=== PATIENT | male | born 1950 | race Two or more races ===

== ENCOUNTER 2019-01-05 17:08 | Inpatient (IN) | payer MEDICARE ==
[~2019-01-05] VITALS: Ht 185.4 cm; Wt 86.7 kg
[2019-01-05] MEDS ORDERED: LORA-254 PO ×3 (18:07)
[2019-01-05] MEDS ORDERED: QUET50TA5 PO (18:07)
[2019-01-05] MEDS ORDERED: QUET25TA5 PO ×2 (18:07)
[2019-01-05] MEDS ORDERED: ESCITALOPRAM OX10 MG PO (18:07)
[2019-01-05 19:24] VITALS: BP 129/76
[2019-01-05] MEDS ORDERED: METHYL SALICYLATE/MENTHOL TOPICAL OINTMENT 29GM TUBE. TP PRN (20:30)
[2019-01-05] MEDS ORDERED: ACETAMINOPHEN 325 MG TABLET PO PRN (20:30)
[2019-01-05] MEDS ORDERED: MAG HYDROX/AL HYDROX/SIMETH 30 ML ORAL.SUSP PO PRN (20:30)
[2019-01-05 20:57] LABS: BASO % 1 % (0-3); EOS # 0.3 x10^3/uL (0.0-0.7); EOS % 7 % (0-3); HEMATOCRIT 39.4 % (39.0-53.0); HEMOGLOBIN 13.2 g/dL (13.0-17.5); LYMPH # 1.4 x10^3/uL (1.0-4.8); LYMPH % 35 % (24-48); MEAN CORPUSCULAR HEMOGLOBIN 31 pg (25-35); MEAN CORPUSCULAR HGB CONC 34 g/dL (31-37); MEAN CORPUSCULAR VOLUME 94 fL (79-100); MONO # 0.5 x10^3/uL (0.0-1.1); MONO % 11 % (0-9); NEUT # 1.8 x10^3uL (1.8-7.7); NEUT % 46 % (31-73); PLATELET COUNT 205 x10^3/uL (140-400); RED BLOOD COUNT 4.21 x10^6/uL (4.30-5.70); RED CELL DISTRIBUTION WIDTH 14.1 % (11.5-14.5)
[2019-01-05] MEDS: CITALOPRAM 20 MG TABLET. PO SCH (21:00)
[2019-01-05] MEDS: QUEtiapine 50 MG TABLET. PO SCH (21:00)
[2019-01-05 21:09] LABS: ALBUMIN 3.6 g/dL (3.4-5.0); ALBUMIN/GLOBULIN RATIO 1.1 (1.0-1.7); CALCIUM 8.8 mg/dL (8.5-10.1); GFR 74.3; MAGNESIUM 2.1 mg/dL (1.8-2.4); POTASSIUM 3.9 mmol/L (3.5-5.1); TOTAL BILIRUBIN 0.3 mg/dL (0.2-1.0)
--- NOTE | 2019-01-05 22:36 | PDOC ---
Exam Note: Manoj Note: Please also refer to the separate dictated note~for this date of service dictated separately. Discussed the patient with Nursing staff reviewed the chart.~Reviewed interim history and current functioning. Reviewed vital signs,~ Labs/ Radiology~and current medications noted below. Continue current treatment with the changes noted in the dictated addendum note Assessment: Vital Signs: Vital Signs Date Time Temp Pulse Resp B/P (MAP) Pulse Ox O2 Delivery O2 Flow Rate FiO2 01/05/19 19:24 98.3 52 20 129/76 (93) 98 Labs: Laboratory Tests Test 01/05/19 20:40 White Blood Count 4.0 x10^3/uL (4.0-11.0) Red Blood Count 4.21 x10^6/uL (4.30-5.70) L Hemoglobin 13.2 g/dL (13.0-17.5) Hematocrit 39.4 % (39.0-53.0) Mean Corpuscular Volume 94 fL (79-100) Mean Corpuscular Hemoglobin 31 pg (25-35) Mean Corpuscular Hemoglobin Concent 34 g/dL (31-37) Red Cell Distribution Width 14.1 % (11.5-14.5) Platelet Count 205 x10^3/uL (140-400) Neutrophils (%) (Auto) 46 % (31-73) Lymphocytes (%) (Auto) 35 % (24-48) Monocytes (%) (Auto) 11 % (0-9) H Eosinophils (%) (Auto) 7 % (0-3) H Basophils (%) (Auto) 1 % (0-3) Neutrophils # (Auto) 1.8 x10^3uL (1.8-7.7) Lymphocytes # (Auto) 1.4 x10^3/uL (1.0-4.8) Monocytes # (Auto) 0.5 x10^3/uL (0.0-1.1) Eosinophils # (Auto) 0.3 x10^3/uL (0.0-0.7) Basophils # (Auto) 0.0 x10^3/uL (0.0-0.2) Sodium Level 144 mmol/L (136-145) Potassium Level 3.9 mmol/L (3.5-5.1) Chloride Level 108 mmol/L (98-107) H Carbon Dioxide Level 29 mmol/L (21-32) Anion Gap 7 (6-14) Blood Urea Nitrogen 19 mg/dL (8-26) Creatinine 1.0 mg/dL (0.7-1.3) Estimated GFR (Cockcroft-Gault) 74.3 BUN/Creatinine Ratio 19 (6-20) Glucose Level 109 mg/dL (70-99) H Calcium Level 8.8 mg/dL (8.5-10.1) Magnesium Level 2.1 mg/dL (1.8-2.4) Total Bilirubin 0.3 mg/dL (0.2-1.0) Aspartate Amino Transferase (AST) 16 U/L (15-37) Alanine Aminotransferase (ALT) 23 U/L (16-63) Alkaline Phosphatase 78 U/L (46-116) Total Protein 7.0 g/dL (6.4-8.2) Albumin 3.6 g/dL (3.4-5.0) Albumin/Globulin Ratio 1.1 (1.0-1.7) Current Medications: Meds: Current Medications Olanzapine (ZyPREXA ZYDIS) 2.5 mg PRN Q2HR PRN PO PSYCHOSIS/AGITATION; Start at 18:45 Lorazepam (Ativan) 2 mg DAILY PO ; Start 01/06/19 at 09:00 Lorazepam (Ativan) 2 mg DAILYWLUN PO ; Start 01/06/19 at 12:00 Lorazepam (Ativan) 2 mg DAILYWSUP PO ; Start 01/06/19 at 17:00 Citalopram Hydrobromide (CeleXA) 20 mg HS PO ; Start 01/05/19 at 21:00 Quetiapine Fumarate (SEROquel) 25 mg DAILY PO ; Start 01/06/19 at 09:00 Quetiapine Fumarate (SEROquel) 25 mg DAILYWLUN PO ; Start 01/06/19 at 12:00 Quetiapine Fumarate (SEROquel) 50 mg HS PO ; Start 01/05/19 at 21:00 Acetaminophen (Tylenol) 650 mg PRN Q6HRS PRN PO PAIN / TEMP; Start 01/05/19 at 20:30 Multi-Ingredient Ointment (Analgesic [place]) 1 manisha PRN QID PRN TP MUSCLE PAIN; Start 01/05/19 at 20:30 Al Hydroxide/Mg Hydroxide (Mylanta Plus Xs) 15 ml PRN AFTMEALHC PRN PO DYSPEPSIA; Start 01/05/19 at 20:30 Magnesium Hydroxide (Milk Of Magnesia) 2,400 mg PRN QHS PRN PO CONSTIPATION; Start 01/05/19 at 20:30 Active Scripts Active Reported Seroquel (Quetiapine Fumarate) 25 Mg Tablet 1 Tab PO DAILY Seroquel (Quetiapine Fumarate) 25 Mg Tablet 1 Tab PO DAILYWLUN Seroquel (Quetiapine Fumarate) 50 Mg Tablet 1 Tab PO QHS Escitalopram Oxalate 10 Mg Tablet 1 Tab PO HS Ativan (Lorazepam) 1 Mg Tablet 2 Mg PO DAILY Ativan (Lorazepam) 1 Mg Tablet 2 Mg PO DAILYWSUP Ativan (Lorazepam) 1 Mg Tablet 2 Mg PO DAILYWLUN I have reviewed the current psychotropics carefully including drug interactions. Risk benefit ratio favors no change other than as noted in my dictated progress note. KODI SLATER MD Jan 05, 2019 22:36
[2019-01-06 06:19] VITALS: BP 140/90
[2019-01-06] MEDS: QUEtiapine 25 MG TABLET. PO SCH ×2 (09:25→11:57)
[2019-01-06] MEDS: LORazepam 1 MG TABLET PO SCH ×3 (09:25→16:54)
[2019-01-06 13:54] LABS: THYROID STIM HORMONE (TSH) 2.855 uIU/mL (0.358-3.740)
[2019-01-06 17:09] VITALS: BP 159/85
[2019-01-06] MEDS: CHOLECALCIFEROL (VITAMIN D3) 50,000 UNIT CAPSULE PO SCH (17:55)
[2019-01-06] MEDS: CITALOPRAM 20 MG TABLET. PO SCH (20:00)
[2019-01-06] MEDS: QUEtiapine 50 MG TABLET. PO SCH (20:01)
[2019-01-06 20:10] LABS: THYROXINE 3.5 ug/dL (4.5-12.0)
--- NOTE | 2019-01-06 22:54 | PDOC ---
Exam Note: Manoj Note: Please also refer to the separate dictated note~for this date of service dictated separately.~Patient seen individually. Discussed the patient with Nursing staff reviewed the chart.~Reviewed interim history and current functioning. Reviewed vital signs,~Labs/ Radiology~and current medications noted below. Continue current treatment with the changes noted in the dictated addendum note Assessment: Vital Signs: Vital Signs Date Time Temp Pulse Resp B/P (MAP) Pulse Ox O2 Delivery O2 Flow Rate FiO2 01/06/19 17:09 97.0 60 16 159/85 (109) 98 I&O Intake and Output 01/06/19 07:01 Intake Total 120 ml Balance 120 ml Intake Oral 120 ml Current Medications: Meds: Current Medications Olanzapine (ZyPREXA ZYDIS) 2.5 mg PRN Q2HR PRN PO PSYCHOSIS/AGITATION Last administered on 01/06/19 18:45; Start 01/05/19 at 18:45 Lorazepam (Ativan) 2 mg DAILY PO Last administered on 01/06/19 09:25; Start 01/06/19 at 09:00 Lorazepam (Ativan) 2 mg DAILYWLUN PO Last administered on 01/06/19 11:57; Start 01/06/19 at 12:00 Lorazepam (Ativan) 2 mg DAILYWSUP PO Last administered on 01/06/19 16:54; Start 01/06/19 at 17:00 Citalopram Hydrobromide (CeleXA) 20 mg HS PO Last administered on 01/06/19 20: 00; Start 01/05/19 at 21:00 Quetiapine Fumarate (SEROquel) 25 mg DAILY PO Last administered on 01/06/19 09: 25; Start 01/06/19 at 09:00 Quetiapine Fumarate (SEROquel) 25 mg DAILYWLUN PO Last administered on 11:57; Start 01/06/19 at 12:00 Quetiapine Fumarate (SEROquel) 50 mg HS PO Last administered on 01/06/19 20:01 ; Start 01/05/19 at 21:00 Acetaminophen (Tylenol) 650 mg PRN Q6HRS PRN PO PAIN / TEMP; Start 01/05/19 at 20:30 Multi-Ingredient Ointment (Analgesic [place]) 1 manisha PRN QID PRN TP MUSCLE PAIN; Start 01/05/19 at 20:30 Al Hydroxide/Mg Hydroxide (Mylanta Plus Xs) 15 ml PRN AFTMEALHC PRN PO DYSPEPSIA; Start 01/05/19 at 20:30 Magnesium Hydroxide (Milk Of Magnesia) 2,400 mg PRN QHS PRN PO CONSTIPATION; Start 01/05/19 at 20:30 Vitamin D (Vitamin D3) 50,000 unit WEEKLY PO Last administered on 01/06/19at 17: 55; Start 01/06/19 at 17:00 Active Scripts Active Reported Seroquel (Quetiapine Fumarate) 25 Mg Tablet 1 Tab PO DAILY Seroquel (Quetiapine Fumarate) 25 Mg Tablet 1 Tab PO DAILYWLUN Seroquel (Quetiapine Fumarate) 50 Mg Tablet 1 Tab PO QHS Escitalopram Oxalate 10 Mg Tablet 1 Tab PO HS Ativan (Lorazepam) 1 Mg Tablet 2 Mg PO DAILY Ativan (Lorazepam) 1 Mg Tablet 2 Mg PO DAILYWSUP Ativan (Lorazepam) 1 Mg Tablet 2 Mg PO DAILYWLUN I have reviewed the current psychotropics carefully including drug interactions. Risk benefit ratio favors no change other than as noted in my dictated progress note. KODI SLATER MD Jan 06, 2019 22:54
[2019-01-06 23:09] LABS: HEMOGLOBIN A1C 5.5 % (4.8-5.6)
--- NOTE | 2019-01-06 23:27 | CONS ---
DATE OF CONSULTATION: 01/06/2019 REASON FOR CONSULTATION: Medical management. HISTORY OF PRESENT ILLNESS: The patient is a 68-year-old male patient, a resident at [facility], who was admitted there only recently, specifically on 12/31/2018 as his has stage 4 breast cancer and is unable to take care of him, apparently was admitted to this unit on account of increasing agitation, exit seeking, emotional, hallucinating, combative with staff, labile, disrobing, spitting on the staff, resistive to care, all this in a background of dementia with behavioral disorder. The patient really is very disorganized and very confused, does not give any useful information, emotionally very labile. PAST MEDICAL HISTORY: Unremarkable except for obviously dementia of Alzheimer's type. PAST SURGICAL HISTORY: Unobtainable. FAMILY HISTORY: Unobtainable. SOCIAL HISTORY: He is , apparently was until recently living with his , who is unable to take care of him. He does not smoke, drink alcohol or use recreational drugs. REVIEW OF SYSTEMS: Unobtainable. ALLERGIES: He has no known drug allergies. MEDICATIONS: He is currently on following medications: He is on escitalopram oxalate 10 mg at bedtime, quetiapine fumarate 50 mg at bedtime, quetiapine fumarate 25 mg daily with lunch and 25 mg in the morning. He is on lorazepam 2 mg with lunch, 2 mg with supper, 2 mg in the morning. PHYSICAL EXAMINATION: GENERAL: On examining him, he looked well and was clearly in no apparent respiratory distress. No pallor, jaundice, cyanosis, or thyromegaly. No jugular venous distension. No limb edema. VITAL SIGNS: His heart rate was 76, blood pressure 140/90, temperature was 98.1, respiratory rate was 16, and oxygen saturation was 91%. HEAD, EYES, EARS, NOSE AND THROAT: Showed normocephalic, atraumatic. NECK: Supple. HEART: Showed normal first and second heart sounds with no gallop, rub or murmur. CHEST: Clear to auscultation. No crepitation or rhonchi. ABDOMEN: Distended, soft, nontender. NEUROLOGIC: He was extremely demented, but without any lateralizing sign. All his cranial nerves are intact. EXTREMITIES: He moves extremities without difficulty. He ambulates without assistance or assistive devices. LABORATORY DATA: His lab work showed a white cell count of 4000, hemoglobin 13, hematocrit 39, MCV 94 and platelet count of 205,000. Serum sodium was 144, potassium 3.9, chloride 108, bicarbonate 29, anion gap of 7, BUN 19, creatinine 1. Estimated GFR was 74 mL per minute. His glucose was 109. Calcium was 8.8, magnesium was 2.1. His serum iron was 45, TIBC was 279, iron saturation was 16%. His total bilirubin, AST, ALT, alkaline phosphatase were normal. Total protein was 7. Albumin was 3.6. Serum triglycerides were 83, total cholesterol 183, LDL was 105, VLDL was 16 and HDL cholesterol was 62. Ratio was 2. His 25-hydroxy vitamin D was 24.6 that is low. TSH was 2.855. His treponema pallidum antibodies were nonreactive. IMPRESSION: In summary, this is a 68-year-old male patient, who was admitted on account of increasing agitation, exit seeking, emotional, hallucinating, combative with staff, labile, disrobing, spitting on the staff, resistive with care, all this in a background of dementia with behavioral disorder. Medically, the only abnormality found was that his vitamin D3 was low and we did start him on replenishment for that. Other than that, everything seemed to be stable. His vital signs are stable. All lab works are within acceptable range. I will continue to monitor his lab works that are still pending and make any necessary recommendation. Thank you, Dr. Meredith for allowing me to participate in the care of this patient. YELITZA FERRO MD DR: TAMY/long JOB#: [id number] / [id number]
--- NOTE | 2019-01-06 23:27 | HP ---
ADMIT DATE: 01/05/2019 PSYCHIATRY ADMISSION HISTORY/EVALUATION This late entry, 01/05/2019, covers elements not covered in my initial note. SUMMARY OF PROGRESS: I met with the patient evening of 01/05/2019 within 15 minutes of him arriving on the unit. Previously, I discussed the patient with Kathrin Aragon's social service staff, who had obtained referral information from [facility] from Dr. Chance Lorenzo for inpatient psychiatric stabilization. IDENTIFYING DATA: The patient is a 68-year-old male referred by Dr. Lorenzo from the [facility] nursing facility and admitted by his , Jeri Crawford, who is his power of regulatory attorney on account of worsening confusion. At the facility, the patient was exit seeking, emotional, hallucinating, combative with staff, labile, disrobing. He is resistive to cares, was spitting on staff members. He was on one-on-one status. Adjustments had been made in his Lexapro, Ativan and Seroquel. He had failed all of these resulting in this referral. CHIEF COMPLAINT: "No." The patient's speech is word salad, oriented just to himself of that. HISTORY OF PRESENT ILLNESS: The patient has a history of dementia, Alzheimer's vascular type. He has been residing at the [facility] facility for some time. Recently, he has been getting increasingly agitated. He was admitted to the [facility] on 12/31/2018 prior to which he was at home with his . The herself as stage IV breast cancer and was unable to take care of him, resulting in the admission to the nursing facility. Over the last several days, as noted behaviors have been totally out of control. He has appeared psychotic, had sleep and appetite changes, hallucinations, marked mood lability, failure for outpatient psychiatric interventions. PAST PSYCHIATRIC HISTORY: As above. MEDICAL HISTORY: Positive for dementia, Alzheimer, vascular and his prior medical records were reviewed. DRUG ALLERGIES: Negative. CURRENT PSYCHOTROPICS: MRAD was reviewed. FAMILY HISTORY: Noncontributory. SOCIAL HISTORY: The patient is and is residing at the [facility] prior to which he lived at home. No alcohol or drug abuse, physical, sexual or elder abuse history is noted. Not known to be a perpetrator. MENTAL STATUS EXAMINATION: The patient was seen shortly after he arrived on the unit. He is in a Broda chair, oriented to himself, not responding to his name as I met with him. He is not very verbal. Speech is garbled. Insight, judgment, recent and remote memory, attention, concentration, fund of knowledge poor, consistent with his diagnosis. LABORATORY DATA: Reviewed. IMPRESSION: Major neurocognitive disorder, Alzheimer, vascular with delusion, depression, behavioral disturbance; anxiety disorder, unspecified; impulse control disorder, unspecified. Rest as above. PLAN: Admit to geropsychiatry unit at [facility]. I will see the patient daily individually, medical followup with Dr. Lundberg. Observe the patient's baseline. Continue current psychotropics and adjust as clinically indicated. Estimated length of stay 10-12 days. DISPOSITION: Plans back to [facility] when stable. MAN Austin SLATER MD DR: DEB/long JOB#: [id number] / [id number]
[2019-01-07 04:52] LABS: BILIRUBIN,URINE NEG (NEG); CLARITY,URINE CLEAR; COLOR,URINE YELLOW; GLUCOSE,URINE NEG (NEG)
[2019-01-07 04:53] LABS: BACTERIA,URINE 0 /HPF (0-FEW); NITRITE,URINE NEG (NEG); RBC,URINE 0 /HPF (0-2); SQUAMOUS EPITHELIAL CELL,UR OCC /LPF; UROBILINOGEN,URINE 0.2 mg/dL (0.2 mg/dL); WBC,URINE 0 /HPF (0-4)
[2019-01-07 05:54] VITALS: BP 145/86
[2019-01-07] MEDS: QUEtiapine 25 MG TABLET. PO SCH ×2 (08:43→12:33)
[2019-01-07] MEDS: LORazepam 1 MG TABLET PO SCH ×3 (08:43→17:15)
--- NOTE | 2019-01-07 14:21 | RAD ---
PQRS Compliance statement: One or more of the following individualized dose reduction techniques were utilized for this examination: 1. Automated exposure control. 2. Adjustment of the mA and/or kV according to patient size. 3. Use of iterative reconstruction technique. Indication:ALTERED MENTAL STATUS TECHNIQUE: CT head without IV contrast COMPARISON:None FINDINGS: No pathologic extra-axial or intra-axial fluid collection. Mild diffuse cerebral atrophy with ex vacuo dilation of the radicles. The basal cisterns are within normal limits. No acute intracranial bleed. No focal loss of mcdaniel-white differentiation. Visualized orbits within normal limits. No suspicious calvarial lesion. The visualized paranasal sinuses and mastoid air cells are clear. IMPRESSION: No acute intracranial process. If concern for acute ischemic stroke is high, please consider MRI brain. Electronically signed by: Dale Nogueira DO (01/07/2019 2:17 PM) [id number]
[2019-01-07 16:06] VITALS: BP 154/81
[2019-01-07] MEDS: QUEtiapine 50 MG TABLET. PO SCH (19:41)
[2019-01-07] MEDS: CITALOPRAM 20 MG TABLET. PO SCH (19:41)
--- NOTE | 2019-01-07 23:05 | PDOC ---
Exam Note: Manoj Note: Please also refer to the separate dictated note~for this date of service dictated separately.~Patient seen individually. Discussed the patient with Nursing staff reviewed the chart.~Reviewed interim history and current functioning. Reviewed vital signs,~Labs/ Radiology~and current medications noted below. Continue current treatment with the changes noted in the dictated addendum note Assessment: Vital Signs: Vital Signs Date Time Temp Pulse Resp B/P (MAP) Pulse Ox O2 Delivery O2 Flow Rate FiO2 01/07/19 16:06 97.5 67 20 154/81 (105) 100 I&O Intake and Output 01/07/19 07:01 Intake Total 720 ml Balance 720 ml Intake Oral 720 ml Labs: Laboratory Tests Test 01/07/19 04:18 Urine Collection Type Unknown Urine Color Yellow Urine Clarity Clear Urine pH 6.5 Urine Specific [place] 1.015 Urine Protein Neg (NEG-TRACE) Urine Glucose (UA) Neg mg/dL (NEG) Urine Ketones (Stick) Neg mg/dL (NEG) Urine Blood Neg (NEG) Urine Nitrite Neg (NEG) Urine Bilirubin Neg (NEG) Urine Urobilinogen Dipstick 0.2 mg/dL (0.2 mg/dL) Urine Leukocyte Esterase Neg (NEG) Urine RBC 0 /HPF (0-2) Urine WBC 0 /HPF (0-4) Urine Squamous Epithelial Cells Occ /LPF Urine Bacteria 0 /HPF (0-FEW) Current Medications: Meds: Current Medications Olanzapine (ZyPREXA ZYDIS) 2.5 mg PRN Q2HR PRN PO PSYCHOSIS/AGITATION Last administered on 01/07/19at 15:33; Start 01/05/19 at 18:45 Lorazepam (Ativan) 2 mg DAILY PO Last administered on 01/07/19at 08:43; Start 01/06/19 at 09:00; Stop 01/07/19 at 16:33; Status DC Lorazepam (Ativan) 2 mg DAILYWLUN PO Last administered on 01/07/19at 12:33; Start 01/06/19 at 12:00; Stop 01/10/19 at 13:00 Lorazepam (Ativan) 2 mg DAILYWSUP PO Last administered on 01/07/19at 17:15; Start 01/06/19 at 17:00; Stop 01/13/19 at 18:00 Citalopram Hydrobromide (CeleXA) 20 mg HS PO Last administered on 01/07/19at 19: 41; Start 01/05/19 at 21:00 Quetiapine Fumarate (SEROquel) 25 mg DAILY PO Last administered on 01/07/19at 08: 43; Start 01/06/19 at 09:00 Quetiapine Fumarate (SEROquel) 25 mg DAILYWLUN PO Last administered on at 12:33; Start 01/06/19 at 12:00 Quetiapine Fumarate (SEROquel) 50 mg HS PO Last administered on 01/07/19 19:41 ; Start 01/05/19 at 21:00 Acetaminophen (Tylenol) 650 mg PRN Q6HRS PRN PO PAIN / TEMP; Start 01/05/19 at 20:30 Multi-Ingredient Ointment (Analgesic [place]) 1 manisha PRN QID PRN TP MUSCLE PAIN; Start 01/05/19 at 20:30 Al Hydroxide/Mg Hydroxide (Mylanta Plus Xs) 15 ml PRN AFTMEALHC PRN PO DYSPEPSIA; Start 01/05/19 at 20:30 Magnesium Hydroxide (Milk Of Magnesia) 2,400 mg PRN QHS PRN PO CONSTIPATION; Start 01/05/19 at 20:30 Vitamin D (Vitamin D3) 50,000 unit WEEKLY PO Last administered on 01/06/19at 17: 55; Start 01/06/19 at 17:00 Lorazepam (Ativan) 1.75 mg DAILY PO ; Start 01/08/19 at 09:00; Stop 01/16/19 at 10:00 Lorazepam (Ativan) 1.75 mg DAILYWLUN PO ; Start 01/11/19 at 12:00; Stop at 13:00 Lorazepam (Ativan) 1.75 mg DAILYWSUP PO ; Start 01/14/19 at 17:00; Stop at 18:00 Lorazepam (Ativan) 1.5 mg DAILY PO ; Start 01/17/19 at 09:00; Stop 01/25/19 at 10:00 Lorazepam (Ativan) 1.5 mg DAILYWLUN PO ; Start 01/20/19 at 12:00; Stop 01/28/19 at 13:00 Lorazepam (Ativan) 1.5 mg DAILYWSUP PO ; Start 01/23/19 at 17:00; Stop 01/31/19 at 18:00 Lorazepam (Ativan) 1.25 mg DAILY PO ; Start 01/26/19 at 09:00; Stop 02/03/19 at 10:00 Lorazepam (Ativan) 1.25 mg DAILYWLUN PO ; Start 01/29/19 at 12:00; Stop 02/06/19 at 13:00 Lorazepam (Ativan) 1.25 mg DAILYWSUP PO ; Start 02/01/19 at 17:00; Stop 02/09/19 at 18:00 Lorazepam (Ativan) 1 mg DAILY PO ; Start 02/04/19 at 09:00 Lorazepam (Ativan) 1 mg DAILYWLUN PO ; Start 02/07/19 at 12:00 Lorazepam (Ativan) 1 mg DAILYWSUP PO ; Start 02/10/19 at 17:00 Active Scripts Active Reported Seroquel (Quetiapine Fumarate) 25 Mg Tablet 1 Tab PO DAILY Seroquel (Quetiapine Fumarate) 25 Mg Tablet 1 Tab PO DAILYWLUN Seroquel (Quetiapine Fumarate) 50 Mg Tablet 1 Tab PO QHS Escitalopram Oxalate 10 Mg Tablet 1 Tab PO HS Ativan (Lorazepam) 1 Mg Tablet 2 Mg PO DAILY Ativan (Lorazepam) 1 Mg Tablet 2 Mg PO DAILYWSUP Ativan (Lorazepam) 1 Mg Tablet 2 Mg PO DAILYWLUN I have reviewed the current psychotropics carefully including drug interactions. Risk benefit ratio favors no change other than as noted in my dictated progress note. Diagnosis: Problems: (1) Anxiety disorder (2) Impulse control disorder (3) Major neurocognitive disorder (4) Alzheimer's dementia (5) Vascular dementia with behavior disturbance (6) Vascular dementia with depressed mood (7) Vascular dementia with delusions KODI SLATER MD Jan 07, 2019 23:05
--- NOTE | 2019-01-07 23:38 | PN ---
DATE: 01/06/2019 This late entry for 01/06/2019 covers elements not covered in my initial note. SUBJECTIVE: I met with the patient in the evening. The patient slept 7-1/4 hours previous night. Remains totally disorganized, oblivious of his surroundings, was crying in the morning. REVIEW OF SYSTEMS: No CV, , pulmonary, eye, ENT system symptoms on review. Reliability poor. MENTAL STATUS EXAM: Oriented to himself. Insight, judgment, recent and remote memory, attention, concentration, fund of knowledge poor, consistent with his diagnosis. IMPRESSION: Major neurocognitive disorder, Alzheimer, vascular with delusion, depression, behavioral disturbance; anxiety disorder, unspecified; impulse control disorder, unspecified. Rest unchanged from admission. PLAN: Continue psychotropics from initial note. Continue Seroquel along with Ativan and we will try and taper the Ativan in due course. Maintain Celexa, Zyprexa p.r.n. Consider Depakote as a mood stabilizer. KODI SLATER MD DR: DEB/long JOB#: [id number] / [id number]
[2019-01-08 06:43] VITALS: BP 154/88
[2019-01-08] MEDS: QUEtiapine 25 MG TABLET. PO SCH ×2 (08:45→12:00)
[2019-01-08] MEDS: LORazepam 1 MG TABLET PO SCH ×3 (08:46→16:34)
[2019-01-08] MEDS: MAGNESIUM HYDROXIDE 2,400 MG/30 ML ORAL.SUSP. PO PRN ×2 (16:34→22:58)
[2019-01-08 16:59] VITALS: BP 143/80
[2019-01-08] MEDS: CITALOPRAM 20 MG TABLET. PO SCH (19:48)
[2019-01-08] MEDS: QUEtiapine 50 MG TABLET. PO SCH (19:49)
--- NOTE | 2019-01-08 22:30 | PDOC ---
Exam Note: Manoj Note: Please also refer to the separate dictated note~for this date of service dictated separately.~Patient seen individually. Discussed the patient with Nursing staff reviewed the chart.~Reviewed interim history and current functioning. Reviewed vital signs,~Labs/ Radiology~and current medications noted below. Continue current treatment with the changes noted in the dictated addendum note Assessment: Vital Signs: Vital Signs Date Time Temp Pulse Resp B/P (MAP) Pulse Ox O2 Delivery O2 Flow Rate FiO2 01/08/19 16:59 98.8 73 19 143/80 (101) 97 I&O Intake and Output 01/08/19 07:01 Intake Total 1200 ml Balance 1200 ml Intake Oral 1200 ml Current Medications: Meds: Current Medications Olanzapine (ZyPREXA ZYDIS) 2.5 mg PRN Q2HR PRN PO PSYCHOSIS/AGITATION Last administered on 01/08/19 13:48; Start 01/05/19 at 18:45 Lorazepam (Ativan) 2 mg DAILY PO Last administered on 01/07/19 08:43; Start 01/06/19 at 09:00; Stop 01/07/19 at 16:33; Status DC Lorazepam (Ativan) 2 mg DAILYWLUN PO Last administered on 01/08/19 12:00; Start 01/06/19 at 12:00; Stop 01/10/19 at 13:00 Lorazepam (Ativan) 2 mg DAILYWSUP PO Last administered on 01/08/19 16:34; Start 01/06/19 at 17:00; Stop 01/13/19 at 18:00 Citalopram Hydrobromide (CeleXA) 20 mg HS PO Last administered on 01/08/19 19: 48; Start 01/05/19 at 21:00 Quetiapine Fumarate (SEROquel) 25 mg DAILY PO Last administered on 01/08/19 08: 45; Start 01/06/19 at 09:00 Quetiapine Fumarate (SEROquel) 25 mg DAILYWLUN PO Last administered on 12:00; Start 01/06/19 at 12:00 Quetiapine Fumarate (SEROquel) 50 mg HS PO Last administered on 01/08/19 19:49 ; Start 01/05/19 at 21:00 Acetaminophen (Tylenol) 650 mg PRN Q6HRS PRN PO PAIN / TEMP Last administered on 01/08/19at 16:34; Start 01/05/19 at 20:30 Multi-Ingredient Ointment (Analgesic [place]) 1 manisha PRN QID PRN TP MUSCLE PAIN; Start 01/05/19 at 20:30 Al Hydroxide/Mg Hydroxide (Mylanta Plus Xs) 15 ml PRN AFTMEALHC PRN PO DYSPEPSIA; Start 01/05/19 at 20:30 Magnesium Hydroxide (Milk Of Magnesia) 2,400 mg PRN QHS PRN PO CONSTIPATION Last administered on 01/08/19at 16:34; Start 01/05/19 at 20:30 Vitamin D (Vitamin D3) 50,000 unit WEEKLY PO Last administered on 01/06/19at 17: 55; Start 01/06/19 at 17:00 Lorazepam (Ativan) 1.75 mg DAILY PO Last administered on 01/08/19at 08:46; Start 01/08/19 at 09:00; Stop 01/16/19 at 10:00 Lorazepam (Ativan) 1.75 mg DAILYWLUN PO ; Start 01/11/19 at 12:00; Stop at 13:00 Lorazepam (Ativan) 1.75 mg DAILYWSUP PO ; Start 01/14/19 at 17:00; Stop at 18:00 Lorazepam (Ativan) 1.5 mg DAILY PO ; Start 01/17/19 at 09:00; Stop 01/25/19 at 10:00 Lorazepam (Ativan) 1.5 mg DAILYWLUN PO ; Start 01/20/19 at 12:00; Stop 01/28/19 at 13:00 Lorazepam (Ativan) 1.5 mg DAILYWSUP PO ; Start 01/23/19 at 17:00; Stop 01/31/19 at 18:00 Lorazepam (Ativan) 1.25 mg DAILY PO ; Start 01/26/19 at 09:00; Stop 02/03/19 at 10:00 Lorazepam (Ativan) 1.25 mg DAILYWLUN PO ; Start 01/29/19 at 12:00; Stop 02/06/19 at 13:00 Lorazepam (Ativan) 1.25 mg DAILYWSUP PO ; Start 02/01/19 at 17:00; Stop 02/09/19 at 18:00 Lorazepam (Ativan) 1 mg DAILY PO ; Start 02/04/19 at 09:00 Lorazepam (Ativan) 1 mg DAILYWLUN PO ; Start 02/07/19 at 12:00 Lorazepam (Ativan) 1 mg DAILYWSUP PO ; Start 02/10/19 at 17:00 Buspirone HCl (Buspar) 5 mg BID@0900,1700 PO ; Start 01/09/19 at 09:00 Active Scripts Active Reported Seroquel (Quetiapine Fumarate) 25 Mg Tablet 1 Tab PO DAILY Seroquel (Quetiapine Fumarate) 25 Mg Tablet 1 Tab PO DAILYWLUN Seroquel (Quetiapine Fumarate) 50 Mg Tablet 1 Tab PO QHS Escitalopram Oxalate 10 Mg Tablet 1 Tab PO HS Ativan (Lorazepam) 1 Mg Tablet 2 Mg PO DAILY Ativan (Lorazepam) 1 Mg Tablet 2 Mg PO DAILYWSUP Ativan (Lorazepam) 1 Mg Tablet 2 Mg PO DAILYWLUN I have reviewed the current psychotropics carefully including drug interactions. Risk benefit ratio favors no change other than as noted in my dictated progress note. Diagnosis: Problems: (1) Anxiety disorder (2) Impulse control disorder (3) Vascular dementia with depressed mood (4) Vascular dementia with delusions (5) Alzheimer's dementia (6) Vascular dementia with behavior disturbance (7) Major neurocognitive disorder KODI SLATER MD Jan 08, 2019 22:30
[2019-01-08] MEDS ORDERED: BISACODYL 10 MG SUPP.RECT PR ONE (23:30)
[2019-01-09 05:56] VITALS: BP 127/78
[2019-01-09] MEDS: QUEtiapine 25 MG TABLET. PO SCH ×2 (09:12→12:11)
[2019-01-09] MEDS: LORazepam 1 MG TABLET PO SCH ×3 (09:14→17:05)
[2019-01-09] MEDS: busPIRone 5 MG TABLET. PO SCH ×2 (09:15→17:05)
[2019-01-09 16:50] VITALS: BP 91/60
[2019-01-09] MEDS: QUEtiapine 50 MG TABLET. PO SCH (20:12)
--- NOTE | 2019-01-09 20:29 | PN ---
DATE: 01/07/2019 PSYCHIATRIC PROGRESS NOTE This is a late entry for 01/07/2019 and covers elements not covered in my initial note. SUBJECTIVE: I met with the patient in the evening and staffed at a treatment team meeting with the entire team earlier in the day. The patient's , Jeri, attended the treatment team meeting. We reviewed his history at length, current diagnosis, progress, current psychotropics, plans for psychotropic changes going forward. He slept 6 hours previous night. Appetite 100%, remains confused, compliant, tearful at times. We will check a CT head once he is calm enough to go through with this. He remains wandering on the unit, somewhat obsessive. REVIEW OF SYSTEMS: No CV, , pulmonary, eye, ENT system symptoms on review. Reliability poor. MENTAL STATUS EXAM: Oriented to himself. Insight, judgment, recent and remote memory, attention, concentration, fund of knowledge poor, consistent with his diagnosis. IMPRESSION: Major neurocognitive disorder, Alzheimer, vascular with delusion, depression, behavioral disturbance; anxiety disorder, unspecified; impulse control disorder, unspecified. Rest unchanged. PLAN: The patient is on Ativan 2 mg 3 times a day and we will gradually taper it by 0.25 mg a day every 3 days until we drop it down to a total of 3 mg a day. Check CT head as above when able to maintain, rest of the psychotropics per initial note. Consider Depakote as a mood stabilizer if agitation is significant and persists. KODI SLATER MD DR: DEB/long JOB#: [id number] / [id number]
--- NOTE | 2019-01-09 22:30 | PN ---
DATE: 01/08/2019 This late entry for 01/08/2019 covers elements not covered in my initial note. SUBJECTIVE: I met with the patient in the evening. The patient slept 7-1/4 hours previous night. He remains restless, confused. Speech is word salad, checking doors, received Zyprexa at 0145. REVIEW OF SYSTEMS: No CV, , pulmonary, eye, ENT system symptoms on review. Reliability poor. MENTAL STATUS EXAM: Oriented to himself. Insight, judgment, recent and remote memory, attention, concentration, fund of knowledge poor, consistent with his diagnosis mentioned in my initial note. PLAN: Start BuSpar 5 mg twice a day. Continue rest unchanged. Hopefully, the BuSpar will help anxiety, agitation. We will adjust gradually. MAN Austin SLATER MD DR: DEB/long JOB#: [id number] / [id number]
--- NOTE | 2019-01-09 22:40 | PDOC ---
Exam Note: Manoj Note: Please also refer to the separate dictated note~for this date of service dictated separately.~Patient seen individually. Discussed the patient with Nursing staff reviewed the chart.~Reviewed interim history and current functioning. Reviewed vital signs,~Labs/ Radiology~and current medications noted below. Continue current treatment with the changes noted in the dictated addendum note Assessment: Vital Signs: Vital Signs Date Time Temp Pulse Resp B/P (MAP) Pulse Ox O2 Delivery O2 Flow Rate FiO2 01/09/19 16:50 98.6 74 19 91/60 (70) 95 Room Air I&O Intake and Output 01/09/19 07:01 Intake Total 960 ml Balance 960 ml Intake Oral 960 ml # Bowel Movements 2 Current Medications: Meds: Current Medications Olanzapine (ZyPREXA ZYDIS) 2.5 mg PRN Q2HR PRN PO PSYCHOSIS/AGITATION Last administered on 01/08/19 13:48; Start 01/05/19 at 18:45 Lorazepam (Ativan) 2 mg DAILY PO Last administered on 01/07/19 08:43; Start 01/06/19 at 09:00; Stop 01/07/19 at 16:33; Status DC Lorazepam (Ativan) 2 mg DAILYWLUN PO Last administered on 01/09/19 12:11; Start 01/06/19 at 12:00; Stop 01/10/19 at 13:00 Lorazepam (Ativan) 2 mg DAILYWSUP PO Last administered on 01/09/19 17:05; Start 01/06/19 at 17:00; Stop 01/13/19 at 18:00 Citalopram Hydrobromide (CeleXA) 20 mg HS PO Last administered on 01/08/19 19: 48; Start 01/05/19 at 21:00; Stop 01/09/19 at 16:39; Status DC Quetiapine Fumarate (SEROquel) 25 mg DAILY PO Last administered on 01/09/19 09: 12; Start 01/06/19 at 09:00 Quetiapine Fumarate (SEROquel) 25 mg DAILYWLUN PO Last administered on 12:11; Start 01/06/19 at 12:00 Quetiapine Fumarate (SEROquel) 50 mg HS PO Last administered on 2/8/19at 20:12 ; Start 01/05/19 at 21:00 Acetaminophen (Tylenol) 650 mg PRN Q6HRS PRN PO PAIN / TEMP Last administered on 01/08/19at 16:34; Start 01/05/19 at 20:30 Multi-Ingredient Ointment (Analgesic [place]) 1 manisha PRN QID PRN TP MUSCLE PAIN; Start 01/05/19 at 20:30 Al Hydroxide/Mg Hydroxide (Mylanta Plus Xs) 15 ml PRN AFTMEALHC PRN PO DYSPEPSIA; Start 01/05/19 at 20:30 Magnesium Hydroxide (Milk Of Magnesia) 2,400 mg PRN QHS PRN PO CONSTIPATION Last administered on 01/08/19 16:34; Start 01/05/19 at 20:30 Vitamin D (Vitamin D3) 50,000 unit WEEKLY PO Last administered on 01/06/19 17: 55; Start 01/06/19 at 17:00 Lorazepam (Ativan) 1.75 mg DAILY PO Last administered on 01/09/19at 09:14; Start 01/08/19 at 09:00; Stop 01/16/19 at 10:00 Lorazepam (Ativan) 1.75 mg DAILYWLUN PO ; Start 01/11/19 at 12:00; Stop at 13:00 Lorazepam (Ativan) 1.75 mg DAILYWSUP PO ; Start 01/14/19 at 17:00; Stop at 18:00 Lorazepam (Ativan) 1.5 mg DAILY PO ; Start 01/17/19 at 09:00; Stop 01/25/19 at 10:00 Lorazepam (Ativan) 1.5 mg DAILYWLUN PO ; Start 01/20/19 at 12:00; Stop 01/28/19 at 13:00 Lorazepam (Ativan) 1.5 mg DAILYWSUP PO ; Start 01/23/19 at 17:00; Stop 01/31/19 at 18:00 Lorazepam (Ativan) 1.25 mg DAILY PO ; Start 01/26/19 at 09:00; Stop 02/03/19 at 10:00 Lorazepam (Ativan) 1.25 mg DAILYWLUN PO ; Start 01/29/19 at 12:00; Stop 02/06/19 at 13:00 Lorazepam (Ativan) 1.25 mg DAILYWSUP PO ; Start 02/01/19 at 17:00; Stop 02/09/19 at 18:00 Lorazepam (Ativan) 1 mg DAILY PO ; Start 02/04/19 at 09:00 Lorazepam (Ativan) 1 mg DAILYWLUN PO ; Start 02/07/19 at 12:00 Lorazepam (Ativan) 1 mg DAILYWSUP PO ; Start 02/10/19 at 17:00 Buspirone HCl (Buspar) 5 mg BID@0900,1700 PO Last administered on 01/09/19at 17: 05; Start 01/09/19 at 09:00 Bisacodyl (Dulcolax Supp) 10 mg 1X ONCE [place] Last administered on 01/08/19at 23:36 ; Start 01/08/19 at 23:30; Stop 01/08/19 at 23:35; Status DC Duloxetine HCl (Cymbalta) 30 mg DAILY PO ; Start 01/10/19 at 09:00 Active Scripts Active Reported Seroquel (Quetiapine Fumarate) 25 Mg Tablet 1 Tab PO DAILY Seroquel (Quetiapine Fumarate) 25 Mg Tablet 1 Tab PO DAILYWLUN Seroquel (Quetiapine Fumarate) 50 Mg Tablet 1 Tab PO QHS Escitalopram Oxalate 10 Mg Tablet 1 Tab PO HS Ativan (Lorazepam) 1 Mg Tablet 2 Mg PO DAILY Ativan (Lorazepam) 1 Mg Tablet 2 Mg PO DAILYWSUP Ativan (Lorazepam) 1 Mg Tablet 2 Mg PO DAILYWLUN I have reviewed the current psychotropics carefully including drug interactions. Risk benefit ratio favors no change other than as noted in my dictated progress note. Diagnosis: Problems: (1) Anxiety disorder (2) Impulse control disorder (3) Vascular dementia with depressed mood (4) Vascular dementia with delusions (5) Alzheimer's dementia (6) Vascular dementia with behavior disturbance (7) Major neurocognitive disorder KODI SLATER MD Jan 09, 2019 22:40
[2019-01-10 06:36] VITALS: BP 161/92
[2019-01-10] MEDS: busPIRone 5 MG TABLET. PO SCH ×2 (08:01→17:23)
[2019-01-10] MEDS: QUEtiapine 25 MG TABLET. PO SCH ×2 (08:01→12:12)
[2019-01-10] MEDS ORDERED: DULoxetine HCL 20 MG CAPSULE.DR PO ONE (08:02)
[2019-01-10] MEDS: LORazepam 1 MG TABLET PO SCH ×3 (08:06→17:24)
[2019-01-10] MEDS: DULoxetine HCL 30 MG CAPSULE.DR PO SCH (08:10)
[2019-01-10 11:02] LABS: BASO % 1 % (0-3); EOS # 0.2 x10^3/uL (0.0-0.7); EOS % 5 % (0-3); HEMATOCRIT 42.9 % (39.0-53.0); HEMOGLOBIN 14.4 g/dL (13.0-17.5); LYMPH # 1.2 x10^3/uL (1.0-4.8); LYMPH % 25 % (24-48); MEAN CORPUSCULAR HEMOGLOBIN 32 pg (25-35); MEAN CORPUSCULAR HGB CONC 34 g/dL (31-37); MEAN CORPUSCULAR VOLUME 94 fL (79-100); MONO # 0.5 x10^3/uL (0.0-1.1); MONO % 10 % (0-9); NEUT % 59 % (31-73); PLATELET COUNT 218 x10^3/uL (140-400); RED BLOOD COUNT 4.56 x10^6/uL (4.30-5.70); RED CELL DISTRIBUTION WIDTH 13.8 % (11.5-14.5)
[2019-01-10 11:13] LABS: ALBUMIN 3.9 g/dL (3.4-5.0); ALBUMIN/GLOBULIN RATIO 1.1 (1.0-1.7); CALCIUM 9.2 mg/dL (8.5-10.1); GFR 74.1; POTASSIUM 3.4 mmol/L (3.5-5.1); TOTAL BILIRUBIN 0.5 mg/dL (0.2-1.0); TOTAL PROTEIN 7.4 g/dL (6.4-8.2)
[2019-01-10 16:47] VITALS: BP 164/82
[2019-01-10] MEDS: QUEtiapine 50 MG TABLET. PO SCH (21:01)
--- NOTE | 2019-01-10 22:00 | PDOC ---
Exam Note: Manoj Note: Please also refer to the separate dictated note~for this date of service dictated separately.~Patient seen individually. Discussed the patient with Nursing staff reviewed the chart.~Reviewed interim history and current functioning. Reviewed vital signs,~Labs/ Radiology~and current medications noted below. Continue current treatment with the changes noted in the dictated addendum note Assessment: Vital Signs: Vital Signs Date Time Temp Pulse Resp B/P (MAP) Pulse Ox O2 Delivery O2 Flow Rate FiO2 01/10/19 16:47 97.4 84 16 164/82 (109) 95 01/10/19 06:36 Room Air I&O Intake and Output 01/10/19 07:01 Intake Total 485 ml Balance 485 ml Intake Oral 485 ml # Voids 2 Labs: Laboratory Tests Test 01/10/19 10:40 White Blood Count 5.0 x10^3/uL (4.0-11.0) Red Blood Count 4.56 x10^6/uL (4.30-5.70) Hemoglobin 14.4 g/dL (13.0-17.5) Hematocrit 42.9 % (39.0-53.0) Mean Corpuscular Volume 94 fL (79-100) Mean Corpuscular Hemoglobin 32 pg (25-35) Mean Corpuscular Hemoglobin Concent 34 g/dL (31-37) Red Cell Distribution Width 13.8 % (11.5-14.5) Platelet Count 218 x10^3/uL (140-400) Neutrophils (%) (Auto) 59 % (31-73) Lymphocytes (%) (Auto) 25 % (24-48) Monocytes (%) (Auto) 10 % (0-9) H Eosinophils (%) (Auto) 5 % (0-3) H Basophils (%) (Auto) 1 % (0-3) Neutrophils # (Auto) 3.0 x10^3uL (1.8-7.7) Lymphocytes # (Auto) 1.2 x10^3/uL (1.0-4.8) Monocytes # (Auto) 0.5 x10^3/uL (0.0-1.1) Eosinophils # (Auto) 0.2 x10^3/uL (0.0-0.7) Basophils # (Auto) 0.0 x10^3/uL (0.0-0.2) Sodium Level 146 mmol/L (136-145) H Potassium Level 3.4 mmol/L (3.5-5.1) L Chloride Level 108 mmol/L (98-107) H Carbon Dioxide Level 31 mmol/L (21-32) Anion Gap 7 (6-14) Blood Urea Nitrogen 32 mg/dL (8-26) H Creatinine 1.0 mg/dL (0.7-1.3) Estimated GFR (Cockcroft-Gault) 74.1 BUN/Creatinine Ratio 32 (6-20) H Glucose Level 93 mg/dL (70-99) Calcium Level 9.2 mg/dL (8.5-10.1) Total Bilirubin 0.5 mg/dL (0.2-1.0) Aspartate Amino Transferase (AST) 19 U/L (15-37) Alanine Aminotransferase (ALT) 22 U/L (16-63) Alkaline Phosphatase 87 U/L (46-116) Total Protein 7.4 g/dL (6.4-8.2) Albumin 3.9 g/dL (3.4-5.0) Albumin/Globulin Ratio 1.1 (1.0-1.7) Current Medications: Meds: Current Medications Olanzapine (ZyPREXA ZYDIS) 2.5 mg PRN Q2HR PRN PO PSYCHOSIS/AGITATION Last administered on 01/08/19 13:48; Start 01/05/19 at 18:45 Lorazepam (Ativan) 2 mg DAILY PO Last administered on 01/07/19 08:43; Start 01/06/19 at 09:00; Stop 01/07/19 at 16:33; Status DC Lorazepam (Ativan) 2 mg DAILYWLUN PO Last administered on 01/10/19 12:12; Start 01/06/19 at 12:00; Stop 01/10/19 at 13:00; Status DC Lorazepam (Ativan) 2 mg DAILYWSUP PO Last administered on 01/10/19 17:24; Start 01/06/19 at 17:00; Stop 01/13/19 at 18:00 Citalopram Hydrobromide (CeleXA) 20 mg HS PO Last administered on 01/08/19 19: 48; Start 01/05/19 at 21:00; Stop 01/09/19 at 16:39; Status DC Quetiapine Fumarate (SEROquel) 25 mg DAILY PO Last administered on 01/10/19 08: 01; Start 01/06/19 at 09:00 Quetiapine Fumarate (SEROquel) 25 mg DAILYWLUN PO Last administered on at 12:12; Start 01/06/19 at 12:00 Quetiapine Fumarate (SEROquel) 50 mg HS PO Last administered on 01/10/19 21:01 ; Start 01/05/19 at 21:00 Acetaminophen (Tylenol) 650 mg PRN Q6HRS PRN PO PAIN / TEMP Last administered on 01/08/19 16:34; Start 01/05/19 at 20:30 Multi-Ingredient Ointment (Analgesic [place]) 1 manisha PRN QID PRN TP MUSCLE PAIN; Start 01/05/19 at 20:30 Al Hydroxide/Mg Hydroxide (Mylanta Plus Xs) 15 ml PRN AFTMEALHC PRN PO DYSPEPSIA; Start 01/05/19 at 20:30 Magnesium Hydroxide (Milk Of Magnesia) 2,400 mg PRN QHS PRN PO CONSTIPATION Last administered on 01/08/19 16:34; Start 01/05/19 at 20:30 Vitamin D (Vitamin D3) 50,000 unit WEEKLY PO Last administered on 01/06/19 17: 55; Start 01/06/19 at 17:00 Lorazepam (Ativan) 1.75 mg DAILY PO Last administered on 01/10/19 08:06; Start 01/08/19 at 09:00; Stop 01/16/19 at 10:00 Lorazepam (Ativan) 1.75 mg DAILYWLUN PO ; Start 01/11/19 at 12:00; Stop at 13:00 Lorazepam (Ativan) 1.75 mg DAILYWSUP PO ; Start 01/14/19 at 17:00; Stop at 18:00 Lorazepam (Ativan) 1.5 mg DAILY PO ; Start 01/17/19 at 09:00; Stop 01/25/19 at 10:00 Lorazepam (Ativan) 1.5 mg DAILYWLUN PO ; Start 01/20/19 at 12:00; Stop 01/28/19 at 13:00 Lorazepam (Ativan) 1.5 mg DAILYWSUP PO ; Start 01/23/19 at 17:00; Stop 01/31/19 at 18:00 Lorazepam (Ativan) 1.25 mg DAILY PO ; Start 01/26/19 at 09:00; Stop 02/03/19 at 10:00 Lorazepam (Ativan) 1.25 mg DAILYWLUN PO ; Start 01/29/19 at 12:00; Stop 02/06/19 at 13:00 Lorazepam (Ativan) 1.25 mg DAILYWSUP PO ; Start 02/01/19 at 17:00; Stop 02/09/19 at 18:00 Lorazepam (Ativan) 1 mg DAILY PO ; Start 02/04/19 at 09:00 Lorazepam (Ativan) 1 mg DAILYWLUN PO ; Start 02/07/19 at 12:00 Lorazepam (Ativan) 1 mg DAILYWSUP PO ; Start 02/10/19 at 17:00 Buspirone HCl (Buspar) 5 mg BID@0900,1700 PO Last administered on 01/10/19at 17: 23; Start 01/09/19 at 09:00 Bisacodyl (Dulcolax Supp) 10 mg 1X ONCE [place] Last administered on 01/08/19at 23:36 ; Start 01/08/19 at 23:30; Stop 01/08/19 at 23:35; Status DC Duloxetine HCl (Cymbalta) 30 mg DAILY PO Last administered on 01/10/19at 08:10; Start 01/10/19 at 09:00 Potassium Chloride (Klor-Con 8) 8 meq DAILYWBKFT PO ; Start 01/11/19 at 08:00 Active Scripts Active Reported Seroquel (Quetiapine Fumarate) 25 Mg Tablet 1 Tab PO DAILY Seroquel (Quetiapine Fumarate) 25 Mg Tablet 1 Tab PO DAILYWLUN Seroquel (Quetiapine Fumarate) 50 Mg Tablet 1 Tab PO QHS Escitalopram Oxalate 10 Mg Tablet 1 Tab PO HS Ativan (Lorazepam) 1 Mg Tablet 2 Mg PO DAILY Ativan (Lorazepam) 1 Mg Tablet 2 Mg PO DAILYWSUP Ativan (Lorazepam) 1 Mg Tablet 2 Mg PO DAILYWLUN I have reviewed the current psychotropics carefully including drug interactions. Risk benefit ratio favors no change other than as noted in my dictated progress note. Diagnosis: Problems: (1) Anxiety disorder (2) Impulse control disorder (3) Vascular dementia with depressed mood (4) Vascular dementia with delusions (5) Alzheimer's dementia (6) Vascular dementia with behavior disturbance (7) Major neurocognitive disorder KODI SLATER MD Jan 10, 2019 22:00
--- NOTE | 2019-01-10 23:30 | PN ---
DATE: 01/09/2019 PSYCHIATRIC PROGRESS NOTE This late entry 01/09/2018 covers elements not covered in my initial note. SUBJECTIVE: I met with the patient in the evening. The patient slept 6-1/4 hours previous night. Speech is word salad. He has not been aggressive, but somewhat tearful in the morning briefly. REVIEW OF SYSTEMS: No CV, , pulmonary, eye, ENT system symptoms on review. Reliability poor. MENTAL STATUS EXAM: Oriented to himself. Insight, judgment, recent and remote memory, attention, concentration, fund of knowledge poor, consistent with his diagnosis mentioned in my initial note. PLAN: Change Celexa to Cymbalta 30 mg a day. Rest unchanged from initial note. MAN Austin SLATER MD DR: DEB/long JOB#: [id number] / [id number]
[2019-01-11 06:50] VITALS: BP 121/68
[2019-01-11] MEDS: LORazepam 1 MG TABLET PO SCH ×3 (08:38→17:22)
[2019-01-11] MEDS: busPIRone 5 MG TABLET. PO SCH ×2 (08:39→17:22)
[2019-01-11] MEDS: QUEtiapine 25 MG TABLET. PO SCH ×2 (08:39→12:32)
[2019-01-11] MEDS: DULoxetine HCL 30 MG CAPSULE.DR PO SCH (08:39)
[2019-01-11] MEDS: POTASSIUM CHLORIDE 8 MEQ TABLET.ER. PO SCH (08:40)
[2019-01-11 17:04] VITALS: BP 127/84
[2019-01-11] MEDS: QUEtiapine 50 MG TABLET. PO SCH (19:21)
--- NOTE | 2019-01-11 22:48 | PDOC ---
Exam Note: Manoj Note: Please also refer to the separate dictated note~for this date of service dictated separately.~Patient seen individually. Discussed the patient with Nursing staff reviewed the chart.~Reviewed interim history and current functioning. Reviewed vital signs,~Labs/ Radiology~and current medications noted below. Continue current treatment with the changes noted in the dictated addendum note Assessment: Vital Signs: Vital Signs Date Time Temp Pulse Resp B/P (MAP) Pulse Ox O2 Delivery O2 Flow Rate FiO2 01/11/19 17:04 97.4 79 18 127/84 (98) 98 01/11/19 06:50 Room Air I&O Intake and Output 01/11/19 07:01 Intake Total 1525 ml Balance 1525 ml Intake Oral 1525 ml Current Medications: Meds: Current Medications Olanzapine (ZyPREXA ZYDIS) 2.5 mg PRN Q2HR PRN PO PSYCHOSIS/AGITATION Last administered on 01/08/19 13:48; Start 01/05/19 at 18:45 Lorazepam (Ativan) 2 mg DAILY PO Last administered on 01/07/19 08:43; Start 01/06/19 at 09:00; Stop 01/07/19 at 16:33; Status DC Lorazepam (Ativan) 2 mg DAILYWLUN PO Last administered on 01/10/19 12:12; Start 01/06/19 at 12:00; Stop 01/10/19 at 13:00; Status DC Lorazepam (Ativan) 2 mg DAILYWSUP PO Last administered on 01/11/19 17:22; Start 01/06/19 at 17:00; Stop 01/13/19 at 18:00 Citalopram Hydrobromide (CeleXA) 20 mg HS PO Last administered on 01/08/19 19: 48; Start 01/05/19 at 21:00; Stop 01/09/19 at 16:39; Status DC Quetiapine Fumarate (SEROquel) 25 mg DAILY PO Last administered on 01/11/19at 08 :39; Start 01/06/19 at 09:00 Quetiapine Fumarate (SEROquel) 25 mg DAILYWLUN PO Last administered on at 12:32; Start 01/06/19 at 12:00 Quetiapine Fumarate (SEROquel) 50 mg HS PO Last administered on 01/11/19 19:21 ; Start 01/05/19 at 21:00 Acetaminophen (Tylenol) 650 mg PRN Q6HRS PRN PO PAIN / TEMP Last administered on 01/08/19 16:34; Start 01/05/19 at 20:30 Multi-Ingredient Ointment (Analgesic [place]) 1 manisha PRN QID PRN TP MUSCLE PAIN; Start 01/05/19 at 20:30 Al Hydroxide/Mg Hydroxide (Mylanta Plus Xs) 15 ml PRN AFTMEALHC PRN PO DYSPEPSIA; Start 01/05/19 at 20:30 Magnesium Hydroxide (Milk Of Magnesia) 2,400 mg PRN QHS PRN PO CONSTIPATION Last administered on 01/08/19 16:34; Start 01/05/19 at 20:30 Vitamin D (Vitamin D3) 50,000 unit WEEKLY PO Last administered on 01/06/19 17: 55; Start 01/06/19 at 17:00 Lorazepam (Ativan) 1.75 mg DAILY PO Last administered on 01/11/19 08:38; Start 01/08/19 at 09:00; Stop 01/16/19 at 10:00 Lorazepam (Ativan) 1.75 mg DAILYWLUN PO Last administered on 01/11/19 12:32; Start 01/11/19 at 12:00; Stop 01/19/19 at 13:00 Lorazepam (Ativan) 1.75 mg DAILYWSUP PO ; Start 01/14/19 at 17:00; Stop at 18:00 Lorazepam (Ativan) 1.5 mg DAILY PO ; Start 01/17/19 at 09:00; Stop 01/25/19 at 10:00 Lorazepam (Ativan) 1.5 mg DAILYWLUN PO ; Start 01/20/19 at 12:00; Stop 01/28/19 at 13:00 Lorazepam (Ativan) 1.5 mg DAILYWSUP PO ; Start 01/23/19 at 17:00; Stop 01/31/19 at 18:00 Lorazepam (Ativan) 1.25 mg DAILY PO ; Start 01/26/19 at 09:00; Stop 02/03/19 at 10:00 Lorazepam (Ativan) 1.25 mg DAILYWLUN PO ; Start 01/29/19 at 12:00; Stop 02/06/19 at 13:00 Lorazepam (Ativan) 1.25 mg DAILYWSUP PO ; Start 02/01/19 at 17:00; Stop 02/09/19 at 18:00 Lorazepam (Ativan) 1 mg DAILY PO ; Start 02/04/19 at 09:00 Lorazepam (Ativan) 1 mg DAILYWLUN PO ; Start 02/07/19 at 12:00 Lorazepam (Ativan) 1 mg DAILYWSUP PO ; Start 02/10/19 at 17:00 Buspirone HCl (Buspar) 5 mg BID@0900,1700 PO Last administered on 01/11/19at 17: 22; Start 01/09/19 at 09:00; Stop 01/12/19 at 09:00 Bisacodyl (Dulcolax Supp) 10 mg 1X ONCE [place] Last administered on 01/08/19at 23:36 ; Start 01/08/19 at 23:30; Stop 01/08/19 at 23:35; Status DC Duloxetine HCl (Cymbalta) 30 mg DAILY PO Last administered on 01/11/19at 08:39; Start 01/10/19 at 09:00 Potassium Chloride (Klor-Con 8) 8 meq DAILYWBKFT PO Last administered on at 08:40; Start 01/11/19 at 08:00 Buspirone HCl (Buspar) 10 mg BIDWMEALS PO ; Start 01/12/19 at 09:00 Active Scripts Active Reported Seroquel (Quetiapine Fumarate) 25 Mg Tablet 1 Tab PO DAILY Seroquel (Quetiapine Fumarate) 25 Mg Tablet 1 Tab PO DAILYWLUN Seroquel (Quetiapine Fumarate) 50 Mg Tablet 1 Tab PO QHS Escitalopram Oxalate 10 Mg Tablet 1 Tab PO HS Ativan (Lorazepam) 1 Mg Tablet 2 Mg PO DAILY Ativan (Lorazepam) 1 Mg Tablet 2 Mg PO DAILYWSUP Ativan (Lorazepam) 1 Mg Tablet 2 Mg PO DAILYWLUN I have reviewed the current psychotropics carefully including drug interactions. Risk benefit ratio favors no change other than as noted in my dictated progress note. Diagnosis: Problems: (1) Anxiety disorder (2) Impulse control disorder (3) Vascular dementia with depressed mood (4) Vascular dementia with delusions (5) Alzheimer's dementia (6) Vascular dementia with behavior disturbance (7) Major neurocognitive disorder KODI SLATER MD Jan 11, 2019 22:48
--- NOTE | 2019-01-12 00:41 | PN ---
DATE: 01/10/2019 PSYCHIATRIC PROGRESS NOTE This late entry 01/10/2019 covers elements not covered in my initial note. SUBJECTIVE: I met with the patient in the evening. The patient slept 6-1/4 hours previous night. He has been disrobing trying to button and unbutton his shirt somewhat ritualistically. He has his birthday on 01/10/2019 and staff celebrated it. He was tearful at times. REVIEW OF SYSTEMS: No CV, , pulmonary, eye, ENT system symptoms on review. Reliability poor. MENTAL STATUS EXAM: Oriented to himself. Insight, judgment, recent and remote memory, attention, concentration, fund of knowledge poor, consistent with his diagnosis mentioned in my initial note. PLAN: Increase BuSpar from 5 mg b.i.d. to 10 mg b.i.d. Rest unchanged from initial note. KODI SLATER MD DR: DEB/long JOB#: [id number] / [id number]
[2019-01-12 06:09] VITALS: BP 157/77
[2019-01-12 07:52] LABS: BASO % 1 % (0-3); EOS # 0.3 x10^3/uL (0.0-0.7); EOS % 8 % (0-3); HEMATOCRIT 41.3 % (39.0-53.0); HEMOGLOBIN 13.7 g/dL (13.0-17.5); LYMPH # 1.2 x10^3/uL (1.0-4.8); LYMPH % 32 % (24-48); MEAN CORPUSCULAR HEMOGLOBIN 31 pg (25-35); MEAN CORPUSCULAR HGB CONC 33 g/dL (31-37); MEAN CORPUSCULAR VOLUME 94 fL (79-100); MONO # 0.4 x10^3/uL (0.0-1.1); MONO % 10 % (0-9); NEUT # 1.8 x10^3uL (1.8-7.7); NEUT % 48 % (31-73); PLATELET COUNT 205 x10^3/uL (140-400); WHITE BLOOD COUNT 3.7 x10^3/uL (4.0-11.0)
[2019-01-12 07:57] LABS: ALBUMIN 3.9 g/dL (3.4-5.0); ALBUMIN/GLOBULIN RATIO 1.1 (1.0-1.7); CALCIUM 9.2 mg/dL (8.5-10.1); GFR 74.1; POTASSIUM 3.9 mmol/L (3.5-5.1); TOTAL BILIRUBIN 0.6 mg/dL (0.2-1.0); TOTAL PROTEIN 7.4 g/dL (6.4-8.2)
[2019-01-12] MEDS: LORazepam 1 MG TABLET PO SCH ×3 (08:02→17:28)
[2019-01-12] MEDS: POTASSIUM CHLORIDE 8 MEQ TABLET.ER. PO SCH (08:02)
[2019-01-12] MEDS: QUEtiapine 25 MG TABLET. PO SCH ×2 (08:07→12:21)
[2019-01-12] MEDS: DULoxetine HCL 30 MG CAPSULE.DR PO SCH (08:07)
[2019-01-12] MEDS: busPIRone 5 MG TABLET. PO SCH ×2 (08:26→17:28)
[2019-01-12 16:38] VITALS: BP 147/58
[2019-01-12] MEDS: QUEtiapine 50 MG TABLET. PO SCH (19:28)
--- NOTE | 2019-01-12 21:26 | PN ---
DATE: 01/11/2019 PSYCHIATRIC PROGRESS NOTE This late entry 01/11/2019 covers elements not covered in my initial note. SUBJECTIVE: I met with the patient in the evening. The patient slept 7-3/4 hours previous night. He remains confused. He was up at 5:00 a.m., did well during the day. He wanders the hallways. REVIEW OF SYSTEMS: No CV, , pulmonary, eye, ENT system symptoms on review. Reliability poor. MENTAL STATUS EXAM: Oriented to himself. Insight, judgment, recent and remote memory, attention, concentration, fund of knowledge poor, consistent with his diagnosis. IMPRESSION: Unchanged from initial note. 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 MAN Austin SLATER MD DR: DEB/long JOB#: [id number] / [id number]
[2019-01-13 05:46] VITALS: BP 170/82
[2019-01-13] MEDS: QUEtiapine 25 MG TABLET. PO SCH ×2 (08:01→12:00)
[2019-01-13] MEDS: busPIRone 5 MG TABLET. PO SCH ×2 (08:01→17:20)
[2019-01-13] MEDS: POTASSIUM CHLORIDE 8 MEQ TABLET.ER. PO SCH (08:02)
[2019-01-13] MEDS: LORazepam 1 MG TABLET PO SCH ×3 (08:04→17:19)
[2019-01-13] MEDS: DULoxetine HCL 20 MG CAPSULE.DR PO SCH (08:04)
[2019-01-13] MEDS: CHOLECALCIFEROL (VITAMIN D3) 50,000 UNIT CAPSULE PO SCH (08:11)
--- NOTE | 2019-01-13 09:20 | PDOC ---
Exam Note: Manoj Note: Late entry for DOS 01.12.2019. Please also refer to the separate dictated note~ for this date of service dictated separately.~Patient seen individually. Discussed the patient with Nursing staff reviewed the chart.~Reviewed interim history and current functioning. Reviewed vital signs,~Labs/ Radiology~and current medications noted below. Continue current treatment with the changes noted in the dictated addendum note Assessment: Vital Signs: VS - Last 72 Hours, by Label Date Time Temp Pulse Resp B/P (MAP) Pulse Ox O2 Delivery O2 Flow Rate FiO2 01/13/19 05:46 97.0 53 18 170/82 (111) 92 01/12/19 16:38 98.0 88 20 147/58 (87) 98 01/12/19 06:09 98.1 52 18 157/77 (103) 93 01/11/19 17:04 97.4 79 18 127/84 (98) 98 01/11/19 09:17 66 01/11/19 06:50 97.2 53 16 121/68 (85) 100 Room Air 01/10/19 16:47 97.4 84 16 164/82 (109) 95 Vital Signs Date Time Temp Pulse Resp B/P (MAP) Pulse Ox O2 Delivery O2 Flow Rate FiO2 01/13/19 05:46 97.0 53 18 170/82 (111) 92 01/11/19 06:50 Room Air I&O Intake and Output 01/13/19 07:00 Intake Total 840 ml Balance 840 ml Intake Oral 840 ml Current Medications: Meds: Current Medications Olanzapine (ZyPREXA ZYDIS) 2.5 mg PRN Q2HR PRN PO PSYCHOSIS/AGITATION Last administered on 01/08/19at 13:48; Start 01/05/19 at 18:45 Lorazepam (Ativan) 2 mg DAILY PO Last administered on 01/07/19at 08:43; Start 01/06/19 at 09:00; Stop 01/07/19 at 16:33; Status DC Lorazepam (Ativan) 2 mg DAILYWLUN PO Last administered on 01/10/19at 12:12; Start 01/06/19 at 12:00; Stop 01/10/19 at 13:00; Status DC Lorazepam (Ativan) 2 mg DAILYWSUP PO Last administered on 01/12/19at 17:28; Start 01/06/19 at 17:00; Stop 01/13/19 at 18:00 Citalopram Hydrobromide (CeleXA) 20 mg HS PO Last administered on 01/08/19 19: 48; Start 01/05/19 at 21:00; Stop 01/09/19 at 16:39; Status DC Quetiapine Fumarate (SEROquel) 25 mg DAILY PO Last administered on 01/13/19 08 :01; Start 01/06/19 at 09:00 Quetiapine Fumarate (SEROquel) 25 mg DAILYWLUN PO Last administered on 12:21; Start 01/06/19 at 12:00 Quetiapine Fumarate (SEROquel) 50 mg HS PO Last administered on 01/12/19 19:28 ; Start 01/05/19 at 21:00 Acetaminophen (Tylenol) 650 mg PRN Q6HRS PRN PO PAIN / TEMP Last administered on 01/08/19 16:34; Start 01/05/19 at 20:30 Multi-Ingredient Ointment (Analgesic [place]) 1 manisha PRN QID PRN TP MUSCLE PAIN; Start 01/05/19 at 20:30 Al Hydroxide/Mg Hydroxide (Mylanta Plus Xs) 15 ml PRN AFTMEALHC PRN PO DYSPEPSIA; Start 01/05/19 at 20:30 Magnesium Hydroxide (Milk Of Magnesia) 2,400 mg PRN QHS PRN PO CONSTIPATION Last administered on 01/08/19 16:34; Start 01/05/19 at 20:30 Vitamin D (Vitamin D3) 50,000 unit WEEKLY PO Last administered on 01/13/19 08: 11; Start 01/06/19 at 17:00 Lorazepam (Ativan) 1.75 mg DAILY PO Last administered on 01/13/19 08:04; Start 01/08/19 at 09:00; Stop 01/16/19 at 10:00 Lorazepam (Ativan) 1.75 mg DAILYWLUN PO Last administered on 01/12/19 12:21; Start 01/11/19 at 12:00; Stop 01/19/19 at 13:00 Lorazepam (Ativan) 1.75 mg DAILYWSUP PO ; Start 01/14/19 at 17:00; Stop at 18:00 Lorazepam (Ativan) 1.5 mg DAILY PO ; Start 01/17/19 at 09:00; Stop 01/25/19 at 10:00 Lorazepam (Ativan) 1.5 mg DAILYWLUN PO ; Start 01/20/19 at 12:00; Stop 01/28/19 at 13:00 Lorazepam (Ativan) 1.5 mg DAILYWSUP PO ; Start 01/23/19 at 17:00; Stop 01/31/19 at 18:00 Lorazepam (Ativan) 1.25 mg DAILY PO ; Start 01/26/19 at 09:00; Stop 02/03/19 at 10:00 Lorazepam (Ativan) 1.25 mg DAILYWLUN PO ; Start 01/29/19 at 12:00; Stop 02/06/19 at 13:00 Lorazepam (Ativan) 1.25 mg DAILYWSUP PO ; Start 02/01/19 at 17:00; Stop 02/09/19 at 18:00 Lorazepam (Ativan) 1 mg DAILY PO ; Start 02/04/19 at 09:00 Lorazepam (Ativan) 1 mg DAILYWLUN PO ; Start 02/07/19 at 12:00 Lorazepam (Ativan) 1 mg DAILYWSUP PO ; Start 02/10/19 at 17:00 Buspirone HCl (Buspar) 5 mg BID@0900,1700 PO Last administered on 01/11/19at 17: 22; Start 01/09/19 at 09:00; Stop 01/12/19 at 08:01; Status DC Bisacodyl (Dulcolax Supp) 10 mg 1X ONCE [place] Last administered on 01/08/19at 23:36 ; Start 01/08/19 at 23:30; Stop 01/08/19 at 23:35; Status DC Duloxetine HCl (Cymbalta) 30 mg DAILY PO Last administered on 01/12/19at 08:07; Start 01/10/19 at 09:00; Stop 01/12/19 at 17:01; Status DC Potassium Chloride (Klor-Con 8) 8 meq DAILYWBKFT PO Last administered on at 08:02; Start 01/11/19 at 08:00 Buspirone HCl (Buspar) 10 mg BIDWMEALS PO Last administered on 01/13/19at 08:01 ; Start 01/12/19 at 08:15 Duloxetine HCl (Cymbalta) 40 mg DAILY PO Last administered on 01/13/19at 08:04; Start 01/13/19 at 09:00 Duloxetine HCl (Cymbalta) 20 mg STK-MED ONCE PO ; Start 01/10/19 at 08:02; Stop 01/13/19 at 01:59; Status DC Active Scripts Active Reported Seroquel (Quetiapine Fumarate) 25 Mg Tablet 1 Tab PO DAILY Seroquel (Quetiapine Fumarate) 25 Mg Tablet 1 Tab PO DAILYWLUN Seroquel (Quetiapine Fumarate) 50 Mg Tablet 1 Tab PO QHS Escitalopram Oxalate 10 Mg Tablet 1 Tab PO HS Ativan (Lorazepam) 1 Mg Tablet 2 Mg PO DAILY Ativan (Lorazepam) 1 Mg Tablet 2 Mg PO DAILYWSUP Ativan (Lorazepam) 1 Mg Tablet 2 Mg PO DAILYWLUN I have reviewed the current psychotropics carefully including drug interactions. Risk benefit ratio favors no change other than as noted in my dictated progress note. Diagnosis: Problems: (1) Anxiety disorder (2) Impulse control disorder (3) Vascular dementia with depressed mood (4) Vascular dementia with delusions (5) Alzheimer's dementia (6) Vascular dementia with behavior disturbance (7) Major neurocognitive disorder KODI SLATER MD Jan 13, 2019 09:19
[2019-01-13 15:11] VITALS: BP 105/62
[2019-01-13] MEDS: QUEtiapine 50 MG TABLET. PO SCH (19:33)
--- NOTE | 2019-01-13 22:42 | PDOC ---
Exam Note: Manoj Note: Please also refer to the separate dictated note~for this date of service dictated separately.~Patient seen individually. Discussed the patient with Nursing staff reviewed the chart.~Reviewed interim history and current functioning. Reviewed vital signs,~Labs/ Radiology~and current medications noted below. Continue current treatment with the changes noted in the dictated addendum note Assessment: Vital Signs: Vital Signs Date Time Temp Pulse Resp B/P (MAP) Pulse Ox O2 Delivery O2 Flow Rate FiO2 01/13/19 15:11 97.1 57 19 105/62 (76) 98 01/11/19 06:50 Room Air I&O Intake and Output 01/13/19 06:59 Intake Total 840 ml Balance 840 ml Intake Oral 840 ml Current Medications: Meds: Current Medications Olanzapine (ZyPREXA ZYDIS) 2.5 mg PRN Q2HR PRN PO PSYCHOSIS/AGITATION Last administered on 01/08/19 13:48; Start 01/05/19 at 18:45 Lorazepam (Ativan) 2 mg DAILY PO Last administered on 01/07/19 08:43; Start 01/06/19 at 09:00; Stop 01/07/19 at 16:33; Status DC Lorazepam (Ativan) 2 mg DAILYWLUN PO Last administered on 01/10/19 12:12; Start 01/06/19 at 12:00; Stop 01/10/19 at 13:00; Status DC Lorazepam (Ativan) 2 mg DAILYWSUP PO Last administered on 01/13/19 17:19; Start 01/06/19 at 17:00; Stop 01/13/19 at 18:00; Status DC Citalopram Hydrobromide (CeleXA) 20 mg HS PO Last administered on 01/08/19 19: 48; Start 01/05/19 at 21:00; Stop 01/09/19 at 16:39; Status DC Quetiapine Fumarate (SEROquel) 25 mg DAILY PO Last administered on 01/13/19at 08 :01; Start 01/06/19 at 09:00 Quetiapine Fumarate (SEROquel) 25 mg DAILYWLUN PO Last administered on at 12:00; Start 01/06/19 at 12:00 Quetiapine Fumarate (SEROquel) 50 mg HS PO Last administered on 01/13/19at 19:33 ; Start 01/05/19 at 21:00 Acetaminophen (Tylenol) 650 mg PRN Q6HRS PRN PO PAIN / TEMP Last administered on 01/08/19at 16:34; Start 01/05/19 at 20:30 Multi-Ingredient Ointment (Analgesic [place]) 1 manisha PRN QID PRN TP MUSCLE PAIN; Start 01/05/19 at 20:30 Al Hydroxide/Mg Hydroxide (Mylanta Plus Xs) 15 ml PRN AFTMEALHC PRN PO DYSPEPSIA; Start 01/05/19 at 20:30 Magnesium Hydroxide (Milk Of Magnesia) 2,400 mg PRN QHS PRN PO CONSTIPATION Last administered on 01/08/19 16:34; Start 01/05/19 at 20:30 Vitamin D (Vitamin D3) 50,000 unit WEEKLY PO Last administered on 01/13/19at 08: 11; Start 01/06/19 at 17:00 Lorazepam (Ativan) 1.75 mg DAILY PO Last administered on 01/13/19at 08:04; Start 01/08/19 at 09:00; Stop 01/16/19 at 10:00 Lorazepam (Ativan) 1.75 mg DAILYWLUN PO Last administered on 01/13/19at 12:01; Start 01/11/19 at 12:00; Stop 01/19/19 at 13:00 Lorazepam (Ativan) 1.75 mg DAILYWSUP PO ; Start 01/14/19 at 17:00; Stop at 18:00 Lorazepam (Ativan) 1.5 mg DAILY PO ; Start 01/17/19 at 09:00; Stop 01/25/19 at 10:00 Lorazepam (Ativan) 1.5 mg DAILYWLUN PO ; Start 01/20/19 at 12:00; Stop 01/28/19 at 13:00 Lorazepam (Ativan) 1.5 mg DAILYWSUP PO ; Start 01/23/19 at 17:00; Stop 01/31/19 at 18:00 Lorazepam (Ativan) 1.25 mg DAILY PO ; Start 01/26/19 at 09:00; Stop 02/03/19 at 10:00 Lorazepam (Ativan) 1.25 mg DAILYWLUN PO ; Start 01/29/19 at 12:00; Stop 02/06/19 at 13:00 Lorazepam (Ativan) 1.25 mg DAILYWSUP PO ; Start 02/01/19 at 17:00; Stop 02/09/19 at 18:00 Lorazepam (Ativan) 1 mg DAILY PO ; Start 02/04/19 at 09:00 Lorazepam (Ativan) 1 mg DAILYWLUN PO ; Start 02/07/19 at 12:00 Lorazepam (Ativan) 1 mg DAILYWSUP PO ; Start 02/10/19 at 17:00 Buspirone HCl (Buspar) 5 mg BID@0900,1700 PO Last administered on 01/11/19at 17: 22; Start 01/09/19 at 09:00; Stop 01/12/19 at 08:01; Status DC Bisacodyl (Dulcolax Supp) 10 mg 1X ONCE [place] Last administered on 01/08/19at 23:36 ; Start 01/08/19 at 23:30; Stop 01/08/19 at 23:35; Status DC Duloxetine HCl (Cymbalta) 30 mg DAILY PO Last administered on 01/12/19at 08:07; Start 01/10/19 at 09:00; Stop 01/12/19 at 17:01; Status DC Potassium Chloride (Klor-Con 8) 8 meq DAILYWBKFT PO Last administered on at 08:02; Start 01/11/19 at 08:00 Buspirone HCl (Buspar) 10 mg BIDWMEALS PO Last administered on 01/13/19at 17:20 ; Start 01/12/19 at 08:15 Duloxetine HCl (Cymbalta) 40 mg DAILY PO Last administered on 01/13/19at 08:04; Start 01/13/19 at 09:00 Duloxetine HCl (Cymbalta) 20 mg STK-MED ONCE PO ; Start 01/10/19 at 08:02; Stop 01/13/19 at 01:59; Status DC Active Scripts Active Reported Seroquel (Quetiapine Fumarate) 25 Mg Tablet 1 Tab PO DAILY Seroquel (Quetiapine Fumarate) 25 Mg Tablet 1 Tab PO DAILYWLUN Seroquel (Quetiapine Fumarate) 50 Mg Tablet 1 Tab PO QHS Escitalopram Oxalate 10 Mg Tablet 1 Tab PO HS Ativan (Lorazepam) 1 Mg Tablet 2 Mg PO DAILY Ativan (Lorazepam) 1 Mg Tablet 2 Mg PO DAILYWSUP Ativan (Lorazepam) 1 Mg Tablet 2 Mg PO DAILYWLUN I have reviewed the current psychotropics carefully including drug interactions. Risk benefit ratio favors no change other than as noted in my dictated progress note. Diagnosis: Problems: (1) Anxiety disorder (2) Impulse control disorder (3) Vascular dementia with depressed mood (4) Vascular dementia with delusions (5) Alzheimer's dementia (6) Vascular dementia with behavior disturbance (7) Major neurocognitive disorder KODI SLATER MD Jan 13, 2019 22:42
--- NOTE | 2019-01-14 00:47 | PN ---
DATE: 01/12/2019 PSYCHIATRIC PROGRESS NOTE This late entry of 01/12/2018 covers elements not covered in my initial note. SUBJECTIVE: I met with the patient in the evening. The patient slept 7-1/2 hours previous night. In the morning, he was tearful, anxious, somewhat labile, certainly very confused, but later in the day, he was better. REVIEW OF SYSTEMS: No CV, , pulmonary, eye, ENT system symptoms on review. Reliability is poor. MENTAL STATUS EXAM: Oriented to himself. Insight, judgment, recent and remote memory, attention, concentration, fund of knowledge poor, consistent with his diagnosis mentioned in my initial note. LABORATORY DATA: Reviewed. PLAN: Continue psychotropics from initial note, but we will increase the Cymbalta from 30 mg a day to 40 mg a day for his mood and anxiety symptoms. MAN Austin SLATER MD DR: DEB/long JOB#: [id number] / [id number]
[2019-01-14 06:00] VITALS: BP 142/91
[2019-01-14] MEDS: busPIRone 5 MG TABLET. PO SCH ×2 (09:00→17:46)
[2019-01-14] MEDS: DULoxetine HCL 20 MG CAPSULE.DR PO SCH (09:00)
[2019-01-14] MEDS: POTASSIUM CHLORIDE 8 MEQ TABLET.ER. PO SCH (09:00)
[2019-01-14] MEDS: QUEtiapine 25 MG TABLET. PO SCH ×2 (09:00→12:57)
[2019-01-14] MEDS: LORazepam 1 MG TABLET PO SCH ×3 (09:01→17:46)
[2019-01-14 16:11] VITALS: BP 110/68
[2019-01-14] MEDS: QUEtiapine 50 MG TABLET. PO SCH (20:28)
--- NOTE | 2019-01-14 22:22 | PDOC ---
Exam Note: Manoj Note: Please also refer to the separate dictated note~for this date of service dictated separately.~Patient seen individually. Discussed the patient with Nursing staff reviewed the chart.~Reviewed interim history and current functioning. Reviewed vital signs,~Labs/ Radiology~and current medications noted below. Continue current treatment with the changes noted in the dictated addendum note Assessment: Vital Signs: Vital Signs Date Time Temp Pulse Resp B/P (MAP) Pulse Ox O2 Delivery O2 Flow Rate FiO2 01/14/19 16:11 98.0 53 18 110/68 (82) 96 01/11/19 06:50 Room Air I&O Intake and Output 01/14/19 07:00 Intake Total 600 ml Balance 600 ml Intake Oral 600 ml # Bowel Movements 1 Current Medications: Meds: Current Medications Olanzapine (ZyPREXA ZYDIS) 2.5 mg PRN Q2HR PRN PO PSYCHOSIS/AGITATION Last administered on 01/08/19 13:48; Start 01/05/19 at 18:45 Lorazepam (Ativan) 2 mg DAILY PO Last administered on 01/07/19 08:43; Start 01/06/19 at 09:00; Stop 01/07/19 at 16:33; Status DC Lorazepam (Ativan) 2 mg DAILYWLUN PO Last administered on 01/10/19 12:12; Start 01/06/19 at 12:00; Stop 01/10/19 at 13:00; Status DC Lorazepam (Ativan) 2 mg DAILYWSUP PO Last administered on 01/13/19 17:19; Start 01/06/19 at 17:00; Stop 01/13/19 at 18:00; Status DC Citalopram Hydrobromide (CeleXA) 20 mg HS PO Last administered on 01/08/19 19: 48; Start 01/05/19 at 21:00; Stop 01/09/19 at 16:39; Status DC Quetiapine Fumarate (SEROquel) 25 mg DAILY PO Last administered on 01/14/19at 09 :00; Start 01/06/19 at 09:00 Quetiapine Fumarate (SEROquel) 25 mg DAILYWLUN PO Last administered on at 12:57; Start 01/06/19 at 12:00 Quetiapine Fumarate (SEROquel) 50 mg HS PO Last administered on 01/14/19 20:28 ; Start 01/05/19 at 21:00 Acetaminophen (Tylenol) 650 mg PRN Q6HRS PRN PO PAIN / TEMP Last administered on 01/08/19 16:34; Start 01/05/19 at 20:30 Multi-Ingredient Ointment (Analgesic [place]) 1 manisha PRN QID PRN TP MUSCLE PAIN; Start 01/05/19 at 20:30 Al Hydroxide/Mg Hydroxide (Mylanta Plus Xs) 15 ml PRN AFTMEALHC PRN PO DYSPEPSIA; Start 01/05/19 at 20:30 Magnesium Hydroxide (Milk Of Magnesia) 2,400 mg PRN QHS PRN PO CONSTIPATION Last administered on 01/08/19 16:34; Start 01/05/19 at 20:30 Vitamin D (Vitamin D3) 50,000 unit WEEKLY PO Last administered on 01/13/19 08: 11; Start 01/06/19 at 17:00 Lorazepam (Ativan) 1.75 mg DAILY PO Last administered on 01/14/19 09:01; Start 01/08/19 at 09:00; Stop 01/16/19 at 10:00 Lorazepam (Ativan) 1.75 mg DAILYWLUN PO Last administered on 01/14/19 12:57; Start 01/11/19 at 12:00; Stop 01/19/19 at 13:00 Lorazepam (Ativan) 1.75 mg DAILYWSUP PO Last administered on 01/14/19 17:46; Start 01/14/19 at 17:00; Stop 01/22/19 at 18:00 Lorazepam (Ativan) 1.5 mg DAILY PO ; Start 01/17/19 at 09:00; Stop 01/25/19 at 10:00 Lorazepam (Ativan) 1.5 mg DAILYWLUN PO ; Start 01/20/19 at 12:00; Stop 01/28/19 at 13:00 Lorazepam (Ativan) 1.5 mg DAILYWSUP PO ; Start 01/23/19 at 17:00; Stop 01/31/19 at 18:00 Lorazepam (Ativan) 1.25 mg DAILY PO ; Start 01/26/19 at 09:00; Stop 02/03/19 at 10:00 Lorazepam (Ativan) 1.25 mg DAILYWLUN PO ; Start 01/29/19 at 12:00; Stop 02/06/19 at 13:00 Lorazepam (Ativan) 1.25 mg DAILYWSUP PO ; Start 02/01/19 at 17:00; Stop 02/09/19 at 18:00 Lorazepam (Ativan) 1 mg DAILY PO ; Start 02/04/19 at 09:00 Lorazepam (Ativan) 1 mg DAILYWLUN PO ; Start 02/07/19 at 12:00 Lorazepam (Ativan) 1 mg DAILYWSUP PO ; Start 02/10/19 at 17:00 Buspirone HCl (Buspar) 5 mg BID@0900,1700 PO Last administered on 01/11/19at 17: 22; Start 01/09/19 at 09:00; Stop 01/12/19 at 08:01; Status DC Bisacodyl (Dulcolax Supp) 10 mg 1X ONCE [place] Last administered on 01/08/19at 23:36 ; Start 01/08/19 at 23:30; Stop 01/08/19 at 23:35; Status DC Duloxetine HCl (Cymbalta) 30 mg DAILY PO Last administered on 01/12/19at 08:07; Start 01/10/19 at 09:00; Stop 01/12/19 at 17:01; Status DC Potassium Chloride (Klor-Con 8) 8 meq DAILYWBKFT PO Last administered on at 09:00; Start 01/11/19 at 08:00 Buspirone HCl (Buspar) 10 mg BIDWMEALS PO Last administered on 01/14/19at 17:46 ; Start 01/12/19 at 08:15 Duloxetine HCl (Cymbalta) 40 mg DAILY PO Last administered on 01/14/19at 09:00; Start 01/13/19 at 09:00 Duloxetine HCl (Cymbalta) 20 mg STK-MED ONCE PO ; Start 01/10/19 at 08:02; Stop 01/13/19 at 01:59; Status DC Divalproex Sodium (Depakote Sprinkles) 125 mg BID@0900,1700 PO ; Start 01/15/19 at 09:00 Active Scripts Active Reported Seroquel (Quetiapine Fumarate) 25 Mg Tablet 1 Tab PO DAILY Seroquel (Quetiapine Fumarate) 25 Mg Tablet 1 Tab PO DAILYWLUN Seroquel (Quetiapine Fumarate) 50 Mg Tablet 1 Tab PO QHS Escitalopram Oxalate 10 Mg Tablet 1 Tab PO HS Ativan (Lorazepam) 1 Mg Tablet 2 Mg PO DAILY Ativan (Lorazepam) 1 Mg Tablet 2 Mg PO DAILYWSUP Ativan (Lorazepam) 1 Mg Tablet 2 Mg PO DAILYWLUN I have reviewed the current psychotropics carefully including drug interactions. Risk benefit ratio favors no change other than as noted in my dictated progress note. Diagnosis: Problems: (1) Anxiety disorder (2) Impulse control disorder (3) Vascular dementia with depressed mood (4) Vascular dementia with delusions (5) Alzheimer's dementia (6) Vascular dementia with behavior disturbance (7) Major neurocognitive disorder KODI SLATER MD Jan 14, 2019 22:22
--- NOTE | 2019-01-14 23:43 | PN ---
DATE: 01/13/2019 PSYCHIATRIC PROGRESS NOTE This late entry of 01/13/2019, covers elements not covered in my initial note. SUBJECTIVE: I met with the patient in the evening. The patient slept 9 hours previous night. The patient remains confused, pleasant, takes meds in pudding. BUN was 32, improved to 28. Potassium is okay. He did well at night. REVIEW OF SYSTEMS: No CV, , pulmonary, eye, ENT system symptoms on review. Reliability poor. MENTAL STATUS EXAM: Oriented to himself. Insight, judgment, recent and remote memory, attention, concentration, fund of knowledge poor, consistent with his diagnosis mentioned in my initial note. PLAN: No change from initial note. MAN Austin SLATER MD DR: DEB/long JOB#: [id number] / [id number]
[2019-01-15 05:46] VITALS: BP 109/78
[2019-01-15] MEDS: busPIRone 5 MG TABLET. PO SCH ×2 (07:49→17:00)
[2019-01-15] MEDS: DULoxetine HCL 20 MG CAPSULE.DR PO SCH (07:50)
[2019-01-15] MEDS: QUEtiapine 25 MG TABLET. PO SCH ×2 (07:51→12:04)
[2019-01-15] MEDS: DIVALPROEX 125 MG CAP.SPRINK PO SCH ×2 (07:51→17:28)
[2019-01-15] MEDS: LORazepam 1 MG TABLET PO SCH ×3 (07:52→17:28)
[2019-01-15] MEDS: POTASSIUM CHLORIDE 8 MEQ TABLET.ER. PO SCH (07:53)
[2019-01-15 16:37] VITALS: BP 119/71
[2019-01-15] MEDS: QUEtiapine 50 MG TABLET. PO SCH (19:39)
--- NOTE | 2019-01-15 22:42 | PDOC ---
Exam Note: Manoj Note: Please also refer to the separate dictated note~for this date of service dictated separately.~Patient seen individually. Discussed the patient with Nursing staff reviewed the chart.~Reviewed interim history and current functioning. Reviewed vital signs,~Labs/ Radiology~and current medications noted below. Continue current treatment with the changes noted in the dictated addendum note Assessment: Vital Signs: Vital Signs Date Time Temp Pulse Resp B/P (MAP) Pulse Ox O2 Delivery O2 Flow Rate FiO2 01/15/19 16:37 98.0 60 16 119/71 (87) 98 01/11/19 06:50 Room Air I&O Intake and Output 01/15/19 06:59 Intake Total 1200 ml Balance 1200 ml Intake Oral 1200 ml Current Medications: Meds: Current Medications Olanzapine (ZyPREXA ZYDIS) 2.5 mg PRN Q2HR PRN PO PSYCHOSIS/AGITATION Last administered on 01/15/19 11:18; Start 01/05/19 at 18:45 Lorazepam (Ativan) 2 mg DAILY PO Last administered on 01/07/19 08:43; Start 01/06/19 at 09:00; Stop 01/07/19 at 16:33; Status DC Lorazepam (Ativan) 2 mg DAILYWLUN PO Last administered on 01/10/19at 12:12; Start 01/06/19 at 12:00; Stop 01/10/19 at 13:00; Status DC Lorazepam (Ativan) 2 mg DAILYWSUP PO Last administered on 01/13/19at 17:19; Start 01/06/19 at 17:00; Stop 01/13/19 at 18:00; Status DC Citalopram Hydrobromide (CeleXA) 20 mg HS PO Last administered on 01/08/19at 19: 48; Start 01/05/19 at 21:00; Stop 01/09/19 at 16:39; Status DC Quetiapine Fumarate (SEROquel) 25 mg DAILY PO Last administered on 01/15/19at 07 :51; Start 01/06/19 at 09:00 Quetiapine Fumarate (SEROquel) 25 mg DAILYWLUN PO Last administered on at 12:04; Start 01/06/19 at 12:00 Quetiapine Fumarate (SEROquel) 50 mg HS PO Last administered on 01/15/19 19:39 ; Start 01/05/19 at 21:00 Acetaminophen (Tylenol) 650 mg PRN Q6HRS PRN PO PAIN / TEMP Last administered on 01/08/19 16:34; Start 01/05/19 at 20:30 Multi-Ingredient Ointment (Analgesic [place]) 1 manisha PRN QID PRN TP MUSCLE PAIN; Start 01/05/19 at 20:30 Al Hydroxide/Mg Hydroxide (Mylanta Plus Xs) 15 ml PRN AFTMEALHC PRN PO DYSPEPSIA; Start 01/05/19 at 20:30 Magnesium Hydroxide (Milk Of Magnesia) 2,400 mg PRN QHS PRN PO CONSTIPATION Last administered on 01/08/19 16:34; Start 01/05/19 at 20:30 Vitamin D (Vitamin D3) 50,000 unit WEEKLY PO Last administered on 01/13/19 08: 11; Start 01/06/19 at 17:00 Lorazepam (Ativan) 1.75 mg DAILY PO Last administered on 01/15/19 07:52; Start 01/08/19 at 09:00; Stop 01/16/19 at 10:00 Lorazepam (Ativan) 1.75 mg DAILYWLUN PO Last administered on 01/15/19 12:04; Start 01/11/19 at 12:00; Stop 01/19/19 at 13:00 Lorazepam (Ativan) 1.75 mg DAILYWSUP PO Last administered on 01/15/19 17:28; Start 01/14/19 at 17:00; Stop 01/22/19 at 18:00 Lorazepam (Ativan) 1.5 mg DAILY PO ; Start 01/17/19 at 09:00; Stop 01/25/19 at 10:00 Lorazepam (Ativan) 1.5 mg DAILYWLUN PO ; Start 01/20/19 at 12:00; Stop 01/28/19 at 13:00 Lorazepam (Ativan) 1.5 mg DAILYWSUP PO ; Start 01/23/19 at 17:00; Stop 01/31/19 at 18:00 Lorazepam (Ativan) 1.25 mg DAILY PO ; Start 01/26/19 at 09:00; Stop 02/03/19 at 10:00 Lorazepam (Ativan) 1.25 mg DAILYWLUN PO ; Start 01/29/19 at 12:00; Stop 02/06/19 at 13:00 Lorazepam (Ativan) 1.25 mg DAILYWSUP PO ; Start 02/01/19 at 17:00; Stop 02/09/19 at 18:00 Lorazepam (Ativan) 1 mg DAILY PO ; Start 02/04/19 at 09:00 Lorazepam (Ativan) 1 mg DAILYWLUN PO ; Start 02/07/19 at 12:00 Lorazepam (Ativan) 1 mg DAILYWSUP PO ; Start 02/10/19 at 17:00 Buspirone HCl (Buspar) 5 mg BID@0900,1700 PO Last administered on 01/11/19at 17: 22; Start 01/09/19 at 09:00; Stop 01/12/19 at 08:01; Status DC Bisacodyl (Dulcolax Supp) 10 mg 1X ONCE [place] Last administered on 01/08/19at 23:36 ; Start 01/08/19 at 23:30; Stop 01/08/19 at 23:35; Status DC Duloxetine HCl (Cymbalta) 30 mg DAILY PO Last administered on 01/12/19at 08:07; Start 01/10/19 at 09:00; Stop 01/12/19 at 17:01; Status DC Potassium Chloride (Klor-Con 8) 8 meq DAILYWBKFT PO Last administered on at 07:53; Start 01/11/19 at 08:00 Buspirone HCl (Buspar) 10 mg BIDWMEALS PO Last administered on 01/15/19at 17:00 ; Start 01/12/19 at 08:15 Duloxetine HCl (Cymbalta) 40 mg DAILY PO Last administered on 01/15/19at 07:50; Start 01/13/19 at 09:00 Duloxetine HCl (Cymbalta) 20 mg STK-MED ONCE PO ; Start 01/10/19 at 08:02; Stop 01/13/19 at 01:59; Status DC Divalproex Sodium (Depakote Sprinkles) 125 mg BID@0900,1700 PO Last administered on 01/15/19at 17:28; Start 2/14/19 at 09:00 Active Scripts Active Reported Seroquel (Quetiapine Fumarate) 25 Mg Tablet 1 Tab PO DAILY Seroquel (Quetiapine Fumarate) 25 Mg Tablet 1 Tab PO DAILYWLUN Seroquel (Quetiapine Fumarate) 50 Mg Tablet 1 Tab PO QHS Escitalopram Oxalate 10 Mg Tablet 1 Tab PO HS Ativan (Lorazepam) 1 Mg Tablet 2 Mg PO DAILY Ativan (Lorazepam) 1 Mg Tablet 2 Mg PO DAILYWSUP Ativan (Lorazepam) 1 Mg Tablet 2 Mg PO DAILYWLUN I have reviewed the current psychotropics carefully including drug interactions. Risk benefit ratio favors no change other than as noted in my dictated progress note. Diagnosis: Problems: (1) Anxiety disorder (2) Impulse control disorder (3) Vascular dementia with depressed mood (4) Vascular dementia with delusions (5) Alzheimer's dementia (6) Vascular dementia with behavior disturbance (7) Major neurocognitive disorder KODI SLATER MD Jan 15, 2019 22:42
[2019-01-16] MEDS ORDERED: ACET325T9 PO (02:35)
[2019-01-16] MEDS ORDERED: CHOL500021 PO (02:37)
[2019-01-16] MEDS ORDERED: DIVA125C2 PO (02:38)
[2019-01-16] MEDS ORDERED: DULO20CA18 PO (02:39)
[2019-01-16] MEDS ORDERED: LORA-254 PO ×7 (02:41→02:47)
[2019-01-16] MEDS ORDERED: MAGN30OR PO (02:48)
[2019-01-16] MEDS ORDERED: MAGN2400 PO (02:48)
[2019-01-16] MEDS ORDERED: METH29OI TP (02:49)
[2019-01-16] MEDS ORDERED: OLAN5TAB5 PO (02:49)
[2019-01-16] MEDS ORDERED: POTA8TAB6 PO (02:50)
[2019-01-16] MEDS ORDERED: BUSP10TA PO (02:51)
[2019-01-16 06:28] VITALS: BP 149/77
[2019-01-16] MEDS: DULoxetine HCL 20 MG CAPSULE.DR PO SCH (08:05)
[2019-01-16] MEDS: QUEtiapine 25 MG TABLET. PO SCH (08:05)
[2019-01-16] MEDS: busPIRone 5 MG TABLET. PO SCH (08:05)
[2019-01-16] MEDS: POTASSIUM CHLORIDE 8 MEQ TABLET.ER. PO SCH (08:06)
[2019-01-16] MEDS: DIVALPROEX 125 MG CAP.SPRINK PO SCH (08:06)
[2019-01-16] MEDS: LORazepam 1 MG TABLET PO SCH (08:09)
--- NOTE | 2019-01-16 18:53 | PDOC ---
Exam Note: Manoj Note: Please also refer to the separate dictated note~for this date of service dictated separately.~Patient seen individually. Discussed the patient with Nursing staff reviewed the chart.~Reviewed interim history and current functioning. Reviewed vital signs,~Labs/ Radiology~and current medications noted below. Continue current treatment with the changes noted in the dictated addendum note Assessment: Vital Signs: Vital Signs Date Time Temp Pulse Resp B/P (MAP) Pulse Ox O2 Delivery O2 Flow Rate FiO2 01/16/19 06:28 97.4 52 18 149/77 (101) 100 Room Air I&O Intake and Output 01/16/19 07:00 Intake Total 960 ml Balance 960 ml Intake Oral 960 ml # Voids 1 # Bowel Movements 1 Current Medications: Meds: Current Medications Olanzapine (ZyPREXA ZYDIS) 2.5 mg PRN Q2HR PRN PO PSYCHOSIS/AGITATION Last administered on 01/15/19 11:18; Start 01/05/19 at 18:45; Stop 01/16/19 at 11:31 ; Status DC Lorazepam (Ativan) 2 mg DAILY PO Last administered on 01/07/19at 08:43; Start 01/06/19 at 09:00; Stop 01/07/19 at 16:33; Status DC Lorazepam (Ativan) 2 mg DAILYWLUN PO Last administered on 01/10/19at 12:12; Start 01/06/19 at 12:00; Stop 01/10/19 at 13:00; Status DC Lorazepam (Ativan) 2 mg DAILYWSUP PO Last administered on 01/13/19at 17:19; Start 01/06/19 at 17:00; Stop 01/13/19 at 18:00; Status DC Citalopram Hydrobromide (CeleXA) 20 mg HS PO Last administered on 01/08/19at 19: 48; Start 01/05/19 at 21:00; Stop 01/09/19 at 16:39; Status DC Quetiapine Fumarate (SEROquel) 25 mg DAILY PO Last administered on 01/16/19at 08 :05; Start 01/06/19 at 09:00; Stop 01/16/19 at 11:31; Status DC Quetiapine Fumarate (SEROquel) 25 mg DAILYWLUN PO Last administered on 12:04; Start 01/06/19 at 12:00; Stop 01/16/19 at 11:31; Status DC Quetiapine Fumarate (SEROquel) 50 mg HS PO Last administered on 01/15/19 19:39 ; Start 01/05/19 at 21:00; Stop 01/16/19 at 11:31; Status DC Acetaminophen (Tylenol) 650 mg PRN Q6HRS PRN PO PAIN / TEMP Last administered on 01/08/19 16:34; Start 01/05/19 at 20:30; Stop 01/16/19 at 11:31; Status DC Multi-Ingredient Ointment (Analgesic [place]) 1 gregory PRN QID PRN TP MUSCLE PAIN; Start 01/05/19 at 20:30; Stop 01/16/19 at 11:31; Status DC Al Hydroxide/Mg Hydroxide (Mylanta Plus Xs) 15 ml PRN AFTMEALHC PRN PO DYSPEPSIA; Start 01/05/19 at 20:30; Stop 01/16/19 at 11:31; Status DC Magnesium Hydroxide (Milk Of Magnesia) 2,400 mg PRN QHS PRN PO CONSTIPATION Last administered on 01/08/19 16:34; Start 01/05/19 at 20:30; Stop 01/16/19 at 11 :31; Status DC Vitamin D (Vitamin D3) 50,000 unit WEEKLY PO Last administered on 01/13/19 08: 11; Start 01/06/19 at 17:00; Stop 01/16/19 at 11:31; Status DC Lorazepam (Ativan) 1.75 mg DAILY PO Last administered on 01/16/19 08:09; Start 01/08/19 at 09:00; Stop 01/16/19 at 10:00; Status DC Lorazepam (Ativan) 1.75 mg DAILYWLUN PO Last administered on 01/15/19 12:04; Start 01/11/19 at 12:00; Stop 01/16/19 at 11:31; Status DC Lorazepam (Ativan) 1.75 mg DAILYWSUP PO Last administered on 01/15/19 17:28; Start 01/14/19 at 17:00; Stop 01/16/19 at 11:31; Status DC Lorazepam (Ativan) 1.5 mg DAILY PO ; Start 01/17/19 at 09:00; Stop 01/17/19 at 09:00; Status DC Lorazepam (Ativan) 1.5 mg DAILYWLUN PO ; Start 01/20/19 at 12:00; Stop 01/20/19 at 12:00; Status DC Lorazepam (Ativan) 1.5 mg DAILYWSUP PO ; Start 01/23/19 at 17:00; Stop 01/23/19 at 17:00; Status DC Lorazepam (Ativan) 1.25 mg DAILY PO ; Start 01/26/19 at 09:00; Stop 01/26/19 at 09:00; Status DC Lorazepam (Ativan) 1.25 mg DAILYWLUN PO ; Start 01/29/19 at 12:00; Stop at 12:00; Status DC Lorazepam (Ativan) 1.25 mg DAILYWSUP PO ; Start 02/01/19 at 17:00; Stop 02/01/19 at 17:00; Status DC Lorazepam (Ativan) 1 mg DAILY PO ; Start 02/04/19 at 09:00; Stop 02/04/19 at 09:00 ; Status DC Lorazepam (Ativan) 1 mg DAILYWLUN PO ; Start 02/07/19 at 12:00; Stop 02/07/19 at 12:00; Status DC Lorazepam (Ativan) 1 mg DAILYWSUP PO ; Start 02/10/19 at 17:00; Stop 02/10/19 at 17:00; Status DC Buspirone HCl (Buspar) 5 mg BID@0900,1700 PO Last administered on 01/11/19at 17: 22; Start 01/09/19 at 09:00; Stop 01/12/19 at 08:01; Status DC Bisacodyl (Dulcolax Supp) 10 mg 1X ONCE [place] Last administered on 01/08/19at 23:36 ; Start 01/08/19 at 23:30; Stop 01/08/19 at 23:35; Status DC Duloxetine HCl (Cymbalta) 30 mg DAILY PO Last administered on 01/12/19at 08:07; Start 01/10/19 at 09:00; Stop 01/12/19 at 17:01; Status DC Potassium Chloride (Klor-Con 8) 8 meq DAILYWBKFT PO Last administered on at 08:06; Start 01/11/19 at 08:00; Stop 01/16/19 at 11:31; Status DC Buspirone HCl (Buspar) 10 mg BIDWMEALS PO Last administered on 01/16/19at 08:05 ; Start 01/12/19 at 08:15; Stop 01/16/19 at 11:31; Status DC Duloxetine HCl (Cymbalta) 40 mg DAILY PO Last administered on 01/16/19at 08:05; Start 01/13/19 at 09:00; Stop 01/16/19 at 11:31; Status DC Duloxetine HCl (Cymbalta) 20 mg STK-MED ONCE PO ; Start 01/10/19 at 08:02; Stop 01/13/19 at 01:59; Status DC Divalproex Sodium (Depakote Sprinkles) 125 mg BID@0900,1700 PO Last administered on 01/16/19at 08:06; Start 01/15/19 at 09:00; Stop 01/16/19 at 11:31 ; Status DC Active Scripts Active Reported Buspirone Hcl 10 Mg Tablet 10 Mg PO BIDWMEALS Potassium Chloride 8 Meq Tablet.er 8 Meq PO DAILYWBKFT Zyprexa Zydis (Olanzapine) 5 Mg Tab.rapdis 2.5 Mg PO PRN Q2HR PRN Analgesic [place] (Methyl Salicylate/Menthol) 28 Gm Oint...g. 1 Gregory TP PRN QID PRN Milk Of Magnesia (Magnesium Hydroxide) 2,400 Mg/10 Ml Oral.susp 2,400 Mg PO PRN QHS PRN Mag-Al Liquid (Magnesium Hydroxide/Al Hydrox) 30 Ml Oral.susp 15 Ml PO PRN AFTMEALHC PRN Ativan (Lorazepam) 1 Mg Tablet 1 Mg PO DAILYWSUP Start date 02/10/2019 Ativan (Lorazepam) 1 Mg Tablet 1.25 Mg PO DAILYWSUP 9 Days Start date 02/01/2019 Stop date 02/09/2019 Ativan (Lorazepam) 1 Mg Tablet 1.5 Mg PO DAILYWSUP 9 Days Start date 01/23/2019 Stop date 01/31/2019 Ativan (Lorazepam) 1 Mg Tablet 1.75 Mg PO DAILYWSUP 7 Days Started on 01/14/2019 Stop date 01/22/2019 Ativan (Lorazepam) 1 Mg Tablet 1 Mg PO DAILYWLUN Start date 02/07/2019 Ativan (Lorazepam) 1 Mg Tablet 1.25 Mg PO DAILYWLUN 9 Days Start date 01/29/2019 Stop date 02/06/2019 Ativan (Lorazepam) 1 Mg Tablet 1.5 Mg PO DAILYWLUN 9 Days Start date 01/20/2019 Stop date 01/28/2019 Ativan (Lorazepam) 1 Mg Tablet 1.75 Mg PO DAILYWLUN 4 Days Started on 01/11/2019 Stop date 01/19/2019 Ativan (Lorazepam) 1 Mg Tablet 1 Mg PO DAILY Start date 02/04/2019 Ativan (Lorazepam) 1 Mg Tablet 1.25 Mg PO DAILY 9 Days Start date 01/26/2019 Stop date 02/03/2019 Ativan (Lorazepam) 1 Mg Tablet 1.5 Mg PO DAILY 9 Days Start date 01/17/2019 Stop date 01/25/2019 Duloxetine Hcl 20 Mg Capsule.dr 40 Mg PO DAILY Depakote Sprinkle (Divalproex Sodium) 125 Mg Cap.sprink 125 Mg PO BID AT 08/1700 D3-50 (Cholecalciferol (Vitamin D3)) 50,000 Unit Capsule 50,000 Unit PO QTU Tylenol (Acetaminophen) 325 Mg Tablet 650 Mg PO PRN Q6HRS PRN Seroquel (Quetiapine Fumarate) 25 Mg Tablet 1 Tab PO DAILY Seroquel (Quetiapine Fumarate) 25 Mg Tablet 1 Tab PO DAILYWLUN Seroquel (Quetiapine Fumarate) 50 Mg Tablet 1 Tab PO QHS I have reviewed the current psychotropics carefully including drug interactions. Risk benefit ratio favors no change other than as noted in my dictated progress note. Diagnosis: Problems: (1) Major neurocognitive disorder (2) Vascular dementia with behavior disturbance (3) Alzheimer's dementia (4) Vascular dementia with delusions (5) Vascular dementia with depressed mood (6) Impulse control disorder (7) Anxiety disorder KODI SLATER MD Jan 16, 2019 18:53
--- NOTE | 2019-01-16 20:45 | PN ---
DATE: 01/14/2019 PSYCHIATRIC PROGRESS NOTE This late entry 01/14/2019 covers elements not covered in my initial note. SUBJECTIVE: I met with the patient in the evening. The patient slept 6-1/2 hours previous night. He remains confused, anxious, constantly wandering into other patient's rooms, does redirect. Speech is word "salad," compliant with medication. He often takes off his clothes, remains in onesie. REVIEW OF SYSTEMS: No CV, , pulmonary, eye, ENT system symptoms on review. Reliability poor. MENTAL STATUS EXAM: Oriented to himself. Insight, judgment, recent and remote memory, attention, concentration, fund of knowledge poor, consistent with his diagnosis mentioned in my initial note. PLAN: Start Depakote Sprinkles 125 mg 9 a.m., 5:00 p.m. Check CBC, CMP, valproic acid level in 3 days. Rest unchanged. MAN MFlorence SLATER MD DR: DEB/long JOB#: [id number] / [id number]
--- NOTE | 2019-01-16 20:50 | PN ---
DATE: 01/15/2019 PSYCHIATRIC PROGRESS NOTE This late entry 01/15/2019 covers elements not covered in my initial note. SUBJECTIVE: I met with the patient in the evening, staffed at a treatment team meeting with the entire team in the morning. The patient slept 7-1/2 hours previous night. Discussed his progress, discharge plans to [place] on 01/16/2019. REVIEW OF SYSTEMS: No CV, , pulmonary, eye, ENT system symptoms on review. Reliability poor. MENTAL STATUS EXAM: Oriented to himself. Insight, judgment, recent and remote memory, attention, concentration, fund of knowledge poor consistent with his diagnosis mentioned in my initial note. PLAN: No change from initial note. He seems to be responding to the addition of Depakote Sprinkles. MAN Austin SLATER MD DR: DEB/long JOB#: [id number] / [id number]
--- NOTE | 2019-01-16 22:47 | PDOC ---
Exam Note: Manoj Note: Please also refer to the separate dictated note~for this date of service dictated separately.~Patient seen individually. Discussed the patient with Nursing staff reviewed the chart.~Reviewed interim history and current functioning. Reviewed vital signs,~Labs/ Radiology~and current medications noted below. Continue current treatment with the changes noted in the dictated addendum note Assessment: Vital Signs: Vital Signs Date Time Temp Pulse Resp B/P (MAP) Pulse Ox O2 Delivery O2 Flow Rate FiO2 01/16/19 06:28 97.4 52 18 149/77 (101) 100 Room Air I&O Intake and Output 01/16/19 07:00 Intake Total 960 ml Balance 960 ml Intake Oral 960 ml # Voids 1 # Bowel Movements 1 Current Medications: Meds: Current Medications Olanzapine (ZyPREXA ZYDIS) 2.5 mg PRN Q2HR PRN PO PSYCHOSIS/AGITATION Last administered on 01/15/19 11:18; Start 01/05/19 at 18:45; Stop 01/16/19 at 11:31 ; Status DC Lorazepam (Ativan) 2 mg DAILY PO Last administered on 01/07/19at 08:43; Start 01/06/19 at 09:00; Stop 01/07/19 at 16:33; Status DC Lorazepam (Ativan) 2 mg DAILYWLUN PO Last administered on 01/10/19at 12:12; Start 01/06/19 at 12:00; Stop 01/10/19 at 13:00; Status DC Lorazepam (Ativan) 2 mg DAILYWSUP PO Last administered on 01/13/19at 17:19; Start 01/06/19 at 17:00; Stop 01/13/19 at 18:00; Status DC Citalopram Hydrobromide (CeleXA) 20 mg HS PO Last administered on 01/08/19at 19: 48; Start 01/05/19 at 21:00; Stop 01/09/19 at 16:39; Status DC Quetiapine Fumarate (SEROquel) 25 mg DAILY PO Last administered on 01/16/19at 08 :05; Start 01/06/19 at 09:00; Stop 01/16/19 at 11:31; Status DC Quetiapine Fumarate (SEROquel) 25 mg DAILYWLUN PO Last administered on 12:04; Start 01/06/19 at 12:00; Stop 01/16/19 at 11:31; Status DC Quetiapine Fumarate (SEROquel) 50 mg HS PO Last administered on 01/15/19 19:39 ; Start 01/05/19 at 21:00; Stop 01/16/19 at 11:31; Status DC Acetaminophen (Tylenol) 650 mg PRN Q6HRS PRN PO PAIN / TEMP Last administered on 01/08/19 16:34; Start 01/05/19 at 20:30; Stop 01/16/19 at 11:31; Status DC Multi-Ingredient Ointment (Analgesic [place]) 1 gregory PRN QID PRN TP MUSCLE PAIN; Start 01/05/19 at 20:30; Stop 01/16/19 at 11:31; Status DC Al Hydroxide/Mg Hydroxide (Mylanta Plus Xs) 15 ml PRN AFTMEALHC PRN PO DYSPEPSIA; Start 01/05/19 at 20:30; Stop 01/16/19 at 11:31; Status DC Magnesium Hydroxide (Milk Of Magnesia) 2,400 mg PRN QHS PRN PO CONSTIPATION Last administered on 01/08/19 16:34; Start 01/05/19 at 20:30; Stop 01/16/19 at 11 :31; Status DC Vitamin D (Vitamin D3) 50,000 unit WEEKLY PO Last administered on 01/13/19 08: 11; Start 01/06/19 at 17:00; Stop 01/16/19 at 11:31; Status DC Lorazepam (Ativan) 1.75 mg DAILY PO Last administered on 01/16/19 08:09; Start 01/08/19 at 09:00; Stop 01/16/19 at 10:00; Status DC Lorazepam (Ativan) 1.75 mg DAILYWLUN PO Last administered on 01/15/19 12:04; Start 01/11/19 at 12:00; Stop 01/16/19 at 11:31; Status DC Lorazepam (Ativan) 1.75 mg DAILYWSUP PO Last administered on 01/15/19 17:28; Start 01/14/19 at 17:00; Stop 01/16/19 at 11:31; Status DC Lorazepam (Ativan) 1.5 mg DAILY PO ; Start 01/17/19 at 09:00; Stop 01/17/19 at 09:00; Status DC Lorazepam (Ativan) 1.5 mg DAILYWLUN PO ; Start 01/20/19 at 12:00; Stop 01/20/19 at 12:00; Status DC Lorazepam (Ativan) 1.5 mg DAILYWSUP PO ; Start 01/23/19 at 17:00; Stop 01/23/19 at 17:00; Status DC Lorazepam (Ativan) 1.25 mg DAILY PO ; Start 01/26/19 at 09:00; Stop 01/26/19 at 09:00; Status DC Lorazepam (Ativan) 1.25 mg DAILYWLUN PO ; Start 01/29/19 at 12:00; Stop at 12:00; Status DC Lorazepam (Ativan) 1.25 mg DAILYWSUP PO ; Start 02/01/19 at 17:00; Stop 02/01/19 at 17:00; Status DC Lorazepam (Ativan) 1 mg DAILY PO ; Start 02/04/19 at 09:00; Stop 02/04/19 at 09:00 ; Status DC Lorazepam (Ativan) 1 mg DAILYWLUN PO ; Start 02/07/19 at 12:00; Stop 02/07/19 at 12:00; Status DC Lorazepam (Ativan) 1 mg DAILYWSUP PO ; Start 02/10/19 at 17:00; Stop 02/10/19 at 17:00; Status DC Buspirone HCl (Buspar) 5 mg BID@0900,1700 PO Last administered on 01/11/19at 17: 22; Start 01/09/19 at 09:00; Stop 01/12/19 at 08:01; Status DC Bisacodyl (Dulcolax Supp) 10 mg 1X ONCE [place] Last administered on 01/08/19at 23:36 ; Start 01/08/19 at 23:30; Stop 01/08/19 at 23:35; Status DC Duloxetine HCl (Cymbalta) 30 mg DAILY PO Last administered on 01/12/19at 08:07; Start 01/10/19 at 09:00; Stop 01/12/19 at 17:01; Status DC Potassium Chloride (Klor-Con 8) 8 meq DAILYWBKFT PO Last administered on at 08:06; Start 01/11/19 at 08:00; Stop 01/16/19 at 11:31; Status DC Buspirone HCl (Buspar) 10 mg BIDWMEALS PO Last administered on 01/16/19at 08:05 ; Start 01/12/19 at 08:15; Stop 01/16/19 at 11:31; Status DC Duloxetine HCl (Cymbalta) 40 mg DAILY PO Last administered on 01/16/19at 08:05; Start 01/13/19 at 09:00; Stop 01/16/19 at 11:31; Status DC Duloxetine HCl (Cymbalta) 20 mg STK-MED ONCE PO ; Start 01/10/19 at 08:02; Stop 01/13/19 at 01:59; Status DC Divalproex Sodium (Depakote Sprinkles) 125 mg BID@0900,1700 PO Last administered on 01/16/19at 08:06; Start 01/15/19 at 09:00; Stop 01/16/19 at 11:31 ; Status DC Active Scripts Active Reported Buspirone Hcl 10 Mg Tablet 10 Mg PO BIDWMEALS Potassium Chloride 8 Meq Tablet.er 8 Meq PO DAILYWBKFT Zyprexa Zydis (Olanzapine) 5 Mg Tab.rapdis 2.5 Mg PO PRN Q2HR PRN Analgesic [place] (Methyl Salicylate/Menthol) 28 Gm Oint...g. 1 Gregory TP PRN QID PRN Milk Of Magnesia (Magnesium Hydroxide) 2,400 Mg/10 Ml Oral.susp 2,400 Mg PO PRN QHS PRN Mag-Al Liquid (Magnesium Hydroxide/Al Hydrox) 30 Ml Oral.susp 15 Ml PO PRN AFTMEALHC PRN Ativan (Lorazepam) 1 Mg Tablet 1 Mg PO DAILYWSUP Start date 02/10/2019 Ativan (Lorazepam) 1 Mg Tablet 1.25 Mg PO DAILYWSUP 9 Days Start date 02/01/2019 Stop date 02/09/2019 Ativan (Lorazepam) 1 Mg Tablet 1.5 Mg PO DAILYWSUP 9 Days Start date 01/23/2019 Stop date 01/31/2019 Ativan (Lorazepam) 1 Mg Tablet 1.75 Mg PO DAILYWSUP 7 Days Started on 01/14/2019 Stop date 01/22/2019 Ativan (Lorazepam) 1 Mg Tablet 1 Mg PO DAILYWLUN Start date 02/07/2019 Ativan (Lorazepam) 1 Mg Tablet 1.25 Mg PO DAILYWLUN 9 Days Start date 01/29/2019 Stop date 02/06/2019 Ativan (Lorazepam) 1 Mg Tablet 1.5 Mg PO DAILYWLUN 9 Days Start date 01/20/2019 Stop date 01/28/2019 Ativan (Lorazepam) 1 Mg Tablet 1.75 Mg PO DAILYWLUN 4 Days Started on 01/11/2019 Stop date 01/19/2019 Ativan (Lorazepam) 1 Mg Tablet 1 Mg PO DAILY Start date 02/04/2019 Ativan (Lorazepam) 1 Mg Tablet 1.25 Mg PO DAILY 9 Days Start date 01/26/2019 Stop date 02/03/2019 Ativan (Lorazepam) 1 Mg Tablet 1.5 Mg PO DAILY 9 Days Start date 01/17/2019 Stop date 01/25/2019 Duloxetine Hcl 20 Mg Capsule.dr 40 Mg PO DAILY Depakote Sprinkle (Divalproex Sodium) 125 Mg Cap.sprink 125 Mg PO BID AT 08/1700 D3-50 (Cholecalciferol (Vitamin D3)) 50,000 Unit Capsule 50,000 Unit PO QTU Tylenol (Acetaminophen) 325 Mg Tablet 650 Mg PO PRN Q6HRS PRN Seroquel (Quetiapine Fumarate) 25 Mg Tablet 1 Tab PO DAILY Seroquel (Quetiapine Fumarate) 25 Mg Tablet 1 Tab PO DAILYWLUN Seroquel (Quetiapine Fumarate) 50 Mg Tablet 1 Tab PO QHS I have reviewed the current psychotropics carefully including drug interactions. Risk benefit ratio favors no change other than as noted in my dictated progress note. Diagnosis: Problems: (1) Anxiety disorder (2) Impulse control disorder (3) Vascular dementia with depressed mood (4) Vascular dementia with delusions (5) Alzheimer's dementia (6) Vascular dementia with behavior disturbance (7) Major neurocognitive disorder KODI SLATER MD Jan 16, 2019 22:47
[2019-01-17] MEDS ORDERED: LORazepam 1 MG TABLET PO SCH (09:00)
--- NOTE | 2019-01-18 17:53 | DS ---
DATE OF DISCHARGE: 01/16/2019 DISCHARGE SUMMARY, PSYCHIATRIC PROGRESS NOTE This late entry, date of service 01/16/2019, covers elements not covered in my initial note of 01/16/2019. REASON FOR ADMISSION: Please refer to the admission history for details. Briefly, the patient is a 68-year-old male referred to us from [facility] by his primary care physician and psychiatrist on account of worsening confusion, increasing agitation, exit seeking, emotional act, having active hallucinations, combative with staff. Mood had been labile. He was disrobing, spitting on staff, resistive with cares. Outpatient psychiatric interventions have failed resulting in this referral. SIGNIFICANT FINDINGS AND CLINICAL COURSE: Following admission, the patient was seen daily individually by myself from a psychiatric standpoint. Medical followup with Dr. Lundberg. The patient was extremely confused, wandering into other patient's rooms, collecting things, oblivious of his surroundings, agitated, paranoid. Adjustments were made in his psychotropics and he seemed to respond to a combination of Seroquel 25 mg daily with lunch. Ativan was being tapered. He was also on Seroquel 25 mg in the morning and 50 mg at night, Cymbalta 40 mg a day, Zyprexa p.r.n., BuSpar 10 mg twice a day, Depakote Sprinkles 125 mg twice a day. Valproic acid level was subtherapeutic and Depakote was being adjusted, but clinically, he was responding despite the subtherapeutic valproic acid level. REVIEW OF SYSTEMS: Prior to discharge on 01/16/2019, no CV, , pulmonary, eye, ENT system symptoms on review. Reliability poor. MENTAL STATUS EXAM: Oriented to himself. Insight, judgment, recent and remote memory, attention, concentration, fund of knowledge poor consistent with his diagnosis. FINAL DIAGNOSES: Major neurocognitive disorder, Alzheimer, vascular with delusion, depression, behavioral disturbance; anxiety disorder, unspecified; impulse control disorder, unspecified. Rest unchanged from admission. DISCHARGE MEDICATIONS: Please refer to the MRAD. DISCHARGE INSTRUCTIONS: [facility]. Time for discharge day management greater than 30 minutes. KODI SLATER MD DR: DEB/long JOB#: [id number] / [id number]
[2019-01-20] MEDS ORDERED: LORazepam 1 MG TABLET PO SCH (12:00)
[2019-01-23] MEDS ORDERED: LORazepam 1 MG TABLET PO SCH (17:00)
[2019-01-26] MEDS ORDERED: LORazepam 1 MG TABLET PO SCH (09:00)
[2019-01-29] MEDS ORDERED: LORazepam 1 MG TABLET PO SCH (12:00)
[2019-02-01] MEDS ORDERED: LORazepam 1 MG TABLET PO SCH (17:00)
[2019-02-04] MEDS ORDERED: LORazepam 1 MG TABLET PO SCH (09:00)
[2019-02-07] MEDS ORDERED: LORazepam 1 MG TABLET PO SCH (12:00)
[2019-02-10] MEDS ORDERED: LORazepam 1 MG TABLET PO SCH (17:00)
== END 2019-01-16 11:15 | DRG 57 ==
LOC: GEROPSY 18:28
PROVIDERS: ADMIT Psychiatry & Neurology Psychiatry; ATTEND Psychiatry & Neurology Psychiatry
DX: G30.9 Alzheimer's disease, unspecified (principal); F01.51 Vascular dementia, unspecified severity, with behavioral disturbance; F02.81 Dementia in other diseases classified elsewhere, unspecified severity, with behavioral disturbance; F32.9 Major depressive disorder, single episode, unspecified; F63.9 Impulse disorder, unspecified; F41.9 Anxiety disorder, unspecified; Z91.83 Wandering in diseases classified elsewhere; Z79.899 Other long term (current) drug therapy
CPT/HCPCS: 36415; 70450; 80053; 80061; 81001; 82306; 83036; 83540; 83550; 83735; 84436; 84443; 84480; 85025; 86592; 93005

== ENCOUNTER 2019-11-10 19:42 | Inpatient (IN) | payer MEDICARE ==
[~2019-11-10] VITALS: Ht 182.9 cm; Wt 82.2 kg
[~2019-11-10 19:42] MED LIST: ACET325T9 PO; BUSP10TA PO; CHOL500021 PO; DIVA125C2 PO; DULO20CA18 PO; ESCITALOPRAM OX10 MG PO; LORA-254 PO; MAGN2400 PO; MAGN30OR PO; METH28OI2 TP; OLAN5TAB5 PO; POTA8TAB6 PO; QUET25TA5 PO; QUET50TA5 PO
[2019-11-10 20:34] LABS: BASO % 1 % (0-3); EOS # 0.2 x10^3/uL (0.0-0.7); EOS % 5 % (0-3); HEMATOCRIT 36.1 % (39.0-53.0); HEMOGLOBIN 11.9 g/dL (13.0-17.5); LYMPH # 1.6 x10^3/uL (1.0-4.8); LYMPH % 38 % (24-48); MEAN CORPUSCULAR HEMOGLOBIN 31 pg (25-35); MEAN CORPUSCULAR HGB CONC 33 g/dL (31-37); MEAN CORPUSCULAR VOLUME 95 fL (79-100); MONO # 0.5 x10^3/uL (0.0-1.1); MONO % 11 % (0-9); NEUT # 1.9 x10^3uL (1.8-7.7); NEUT % 45 % (31-73); PLATELET COUNT 171 x10^3/uL (140-400); RED BLOOD COUNT 3.81 x10^6/uL (4.30-5.70); RED CELL DISTRIBUTION WIDTH 14.4 % (11.5-14.5); WHITE BLOOD COUNT 4.1 x10^3/uL (4.0-11.0)
[2019-11-10 20:43] LABS: ALBUMIN 3.7 g/dL (3.4-5.0); ALBUMIN/GLOBULIN RATIO 1.1 (1.0-1.7); CALCIUM 8.9 mg/dL (8.5-10.1); GFR 74.1; POTASSIUM 3.8 mmol/L (3.5-5.1); TOTAL BILIRUBIN 0.4 mg/dL (0.2-1.0); TOTAL PROTEIN 7.1 g/dL (6.4-8.2)
[2019-11-10 20:57] LABS: AMORPHOUS SEDIMENT,UR PRESENT /HPF; BACTERIA,URINE 0 /HPF (0-FEW); BILIRUBIN,URINE NEG (NEG); CLARITY,URINE CLOUDY; COLOR,URINE YELLOW; GLUCOSE,URINE NEG (NEG); HYALINE CASTS, URINE OCC /HPF; NITRITE,URINE NEG (NEG); RBC,URINE 0 /HPF (0-2); UROBILINOGEN,URINE 4 mg/dL (0.2 mg/dL); WBC,URINE RARE /HPF (0-4)
--- NOTE | 2019-11-10 21:28 | PHYS DOC ---
Adult General Chief Complaint Chief Complaint: MEDICAL CLEARANCE HPI HPI 69-year-old male presents for medical clearance or his behavioral health admission. Patient was reported to the uncooperative, hallucinating, and pushing staff around. The patient is very docile here in the ED. We are unsure if he was given medication prior to being sent here. Patient denies any medical complaints to me. Review of Systems Review of Systems Constitutional: Denies fever or chills [] Eyes: Denies change in visual acuity, redness, or eye pain [] HENT: Denies nasal congestion or sore throat [] Respiratory: Denies cough or shortness of breath [] Cardiovascular: No additional information not addressed in HPI [] GI: Denies abdominal pain, nausea, vomiting, bloody stools or diarrhea [] : Denies dysuria or hematuria [] Musculoskeletal: Denies back pain or joint pain [] Integument: Denies rash or skin lesions [] Neurologic: Denies headache, focal weakness or sensory changes [] Endocrine: Denies polyuria or polydipsia [] All other systems were reviewed and found to be within normal limits, except as documented in this note. Allergies Allergies Allergies Coded Allergies Type Severity Reaction Last Updated Verified No Known Drug Allergies 01/05/19 No Physical Exam Physical Exam Constitutional: Well developed, well nourished, no acute distress, non-toxic appearance. [] HENT: Normocephalic, atraumatic, bilateral external ears normal, oropharynx moist, no oral exudates, nose normal. [] Eyes: PERRLA, EOMI, conjunctiva normal, no discharge. [] Neck: Normal range of motion, no tenderness, supple, no stridor. [] Cardiovascular:Heart rate regular rhythm, no murmur [] Lungs & Thorax: Bilateral breath sounds clear to auscultation [] Abdomen: Bowel sounds normal, soft, no tenderness, no masses, no pulsatile masses. [] Skin: Warm, dry, no erythema, no rash. [] Back: No tenderness, no CVA tenderness. [] Extremities: No tenderness, no cyanosis, no clubbing, ROM intact, no edema. [] Neurologic: Alert and oriented X 3, normal motor function, normal sensory function, no focal deficits noted. [] Psychologic: Affect normal, judgement normal, mood depressed. [] Current Patient Data Lab Results Laboratory Tests Test 11/10/19 20:05 11/10/19 20:30 White Blood Count 4.1 x10^3/uL (4.0-11.0) Red Blood Count 3.81 x10^6/uL (4.30-5.70) L Hemoglobin 11.9 g/dL (13.0-17.5) L Hematocrit 36.1 % (39.0-53.0) L Mean Corpuscular Volume 95 fL (79-100) Mean Corpuscular Hemoglobin 31 pg (25-35) Mean Corpuscular Hemoglobin Concent 33 g/dL (31-37) Red Cell Distribution Width 14.4 % (11.5-14.5) Platelet Count 171 x10^3/uL (140-400) Neutrophils (%) (Auto) 45 % (31-73) Lymphocytes (%) (Auto) 38 % (24-48) Monocytes (%) (Auto) 11 % (0-9) H Eosinophils (%) (Auto) 5 % (0-3) H Basophils (%) (Auto) 1 % (0-3) Neutrophils # (Auto) 1.9 x10^3uL (1.8-7.7) Lymphocytes # (Auto) 1.6 x10^3/uL (1.0-4.8) Monocytes # (Auto) 0.5 x10^3/uL (0.0-1.1) Eosinophils # (Auto) 0.2 x10^3/uL (0.0-0.7) Basophils # (Auto) 0.0 x10^3/uL (0.0-0.2) Sodium Level 142 mmol/L (136-145) Potassium Level 3.8 mmol/L (3.5-5.1) Chloride Level 105 mmol/L (98-107) Carbon Dioxide Level 30 mmol/L (21-32) Anion Gap 7 (6-14) Blood Urea Nitrogen 26 mg/dL (8-26) Creatinine 1.0 mg/dL (0.7-1.3) Estimated GFR (Cockcroft-Gault) 74.1 BUN/Creatinine Ratio 26 (6-20) H Glucose Level 88 mg/dL (70-99) Calcium Level 8.9 mg/dL (8.5-10.1) Magnesium Level 2.0 mg/dL (1.8-2.4) Total Bilirubin 0.4 mg/dL (0.2-1.0) Aspartate Amino Transferase (AST) 22 U/L (15-37) Alanine Aminotransferase (ALT) 25 U/L (16-63) Alkaline Phosphatase 76 U/L (46-116) Total Protein 7.1 g/dL (6.4-8.2) Albumin 3.7 g/dL (3.4-5.0) Albumin/Globulin Ratio 1.1 (1.0-1.7) Urine Collection Type Unknown Urine Color Yellow Urine Clarity Cloudy Urine pH 7.0 Urine Specific [place] 1.025 Urine Protein Neg (NEG-TRACE) Urine Glucose (UA) Neg mg/dL (NEG) Urine Ketones (Stick) Neg mg/dL (NEG) Urine Blood Neg (NEG) Urine Nitrite Neg (NEG) Urine Bilirubin Neg (NEG) Urine Urobilinogen Dipstick 4 mg/dL (0.2 mg/dL) Urine Leukocyte Esterase Neg (NEG) Urine RBC 0 /HPF (0-2) Urine WBC Rare /HPF (0-4) Urine Squamous Epithelial Cells None /LPF Urine Amorphous Sediment Present /HPF Urine Bacteria 0 /HPF (0-FEW) Urine Hyaline Casts Occ /HPF Urine Mucus Slight /LPF EKG EKG [] Radiology/Procedures Radiology/Procedures [] Course & Med Decision Making Course & Med Decision Making Pertinent Labs and Imaging studies reviewed. (See chart for details) The patient's labs are unremarkable except for mild anemia. His EKG is unremarkable. Urinalysis is negative for infection. He is stable for behavioral health admission at this time [] Dragon Disclaimer Dragon Disclaimer This electronic medical record was generated, in whole or in part, using a voice recognition dictation system. Departure Departure: Impression: Primary Impression: Medical clearance for psychiatric admission Disposition: ADMITTED INPATIENT Condition: STABLE Referrals: LIZETH POWELL MD (PCP) OSIRIS LEONARD DO Nov 10, 2019 21:28
--- NOTE | 2019-11-10 22:12 | NUR ---
Admission Note with Justification for Admission to [facility] Patient admitted to [facility] for protective oversight for emergency stabilization of acute psychiatric crisis. Pt admitted from: SNF via [facility] Mode of arrival: EMS Accompanied By: EMS/NSO Precipitating behaviors that initiated intake and admission: increased agitation, hallucinating, anxiety, flipped dining room table over, Description of failure of out patient attempts at stabilization in previous setting list behavior and medication trials: diazepam, redirection, UA Behaviors and assessment findings upon admission: sleepy, resistive to care, VSS Plan: Admit for protective oversight for adjustment and stabilization of medications, behaviors and mood. Intense treatment regimen including groups, medication adjustments, therapy, consistent regimen for ADL's, self care, and sleep hygiene. Daily monitoring by Inpatient staff, Psychiatry, and Medical Physician.
[2019-11-11] MEDS ORDERED: LORA2ORA8 PO (00:07)
[2019-11-11] MEDS ORDERED: DIVA125C2 PO (00:07)
[2019-11-11] MEDS ORDERED: OLAN5TAB9 PO (00:07)
[2019-11-11] MEDS ORDERED: HALO2ORA PO (00:07)
[2019-11-11] MEDS ORDERED: QUET50TA5 PO ×2 (00:07)
[2019-11-11] MEDS ORDERED: QUET100T4 PO (00:07)
[2019-11-11] MEDS ORDERED: TRAZ-120 PO (00:07)
[2019-11-11] MEDS ORDERED: MELA5TAB20 PO (00:07)
[2019-11-11 01:18] LABS: VAL ACID 63 mcg/mL (50-100)
[2019-11-11 06:19] VITALS: BP 126/65
[2019-11-11 06:42] VITALS: BP 130/64
[2019-11-11] MEDS ORDERED: LORazepam INTENSOL 2 MG/ML BOTTLE PO PRN ×2 (08:30)
[2019-11-11] MEDS ORDERED: ACETAMINOPHEN 325 MG TABLET PO PRN (08:30)
[2019-11-11] MEDS ORDERED: HALOPERIDOL 10 MG/5 ML ORAL.CONC. PO PRN (08:30)
[2019-11-11] MEDS ORDERED: MAG HYDROX/AL HYDROX/SIMETH 30 ML ORAL.SUSP PO PRN (08:45)
[2019-11-11] MEDS ORDERED: METHYL SALICYLATE/MENTHOL TOPICAL OINTMENT 57GM TUBE. TP PRN (08:45)
[2019-11-11] MEDS ORDERED: QUEtiapine 50 MG TABLET. PO SCH ×2 (09:00→17:00)
[2019-11-11] MEDS ORDERED: FLU VAX QS 2019-20 (36MOS+)/PF 0.5 ML SYRINGE. VAX IM ONE (09:00)
--- NOTE | 2019-11-11 09:00 | NUR ---
Patient is tearful, restless, and extremely confused however compliant with taking his medications whole and cooperative with assessment and appropriate to this nurse. He is disorganized, intrusive to other patients room and is currently wandering the hallway. Will continue to monitor. Addendum: 11/11/19 at 1114 by ELIZABETH FERGUSON RN RN Aides reported the patient was combative and resistive in the shower. He continues to be confused, disorganized, and intrusive to other patients room. He is still wandering the hallways and door checking but is able to be redirect. Will continue to monitor.
[2019-11-11] MEDS: DULoxetine HCL 20 MG CAPSULE.DR PO SCH (09:08)
[2019-11-11] MEDS: DIVALPROEX 125 MG CAP.SPRINK PO SCH ×2 (09:08→17:26)
[2019-11-11] MEDS: LORazepam 1 MG TABLET PO SCH ×3 (09:08→17:26)
[2019-11-11] MEDS: busPIRone 15 MG TABLET. PO SCH ×2 (09:10→17:26)
--- NOTE | 2019-11-11 11:55 | NUR ---
Aides reported patient was being extremely restless and agitated in the day room. Patient became combative during redirection. PRN May given @[id number].
--- NOTE | 2019-11-11 12:01 | NUR ---
GURMEET spoke to pt. , Jeri, regarding recent behaviors pt. was having at this facility. GURMEET left message for Cherise, [facility], to discuss pt. Addendum: 11/11/19 at 1453 by JONO LEVI GURMEET spoke to Mariposa, Health and Patient Accounts Manager at [facility], regarding pt. behaviors and to share contact information.
--- NOTE | 2019-11-11 14:17 | NUR ---
PSYCHOSOCIAL ASSESSMENT ADMISSION DATE: 11/10/19 CONTACT INFORMATION: DPOA/Guardian Contact Name: Jeri CrawfordENRIKE Contact Address: [place] [address] Contact Phone #: [phone] ETHNIC ORIGIN: Other REASONS FOR ADMISSION: Combative and Hallucinations UPDATED REASONS FOR ADMISSION: Agitated, Anxiety/Panic, Hallucinations, and Poor Impulse Control ADDITIONAL ADMISSION COMMENTS: Per pt. intake, pt. was exit seeking, emotional, hallucinating, combative with staff, labile, disrobing, spit on staff, and resists cares. UPDATE ADMISSION COMMENTS: Per pt. intake, pt. had increased agitation, flipped dining table over, hallucinating, tearful, anxious, pushing staff, tries to propel peers in their wheelchairs, resists cares, and labile mood. Per facility staff, pt. is impulsive, unable to be redirected, and does deep breathing when anxious. REASON FOR ADMISSION IN PATIENT/FAMILY'S OWN WORDS: Per pt. , "To get his meds under control." "Combative". She share pt. hadn't even been at [facility] for a week. He became incontinent this weekend. PATIENT/FAMILY EXPECTATIONS FOR ADMISSION: "Well, like I said, to get his meds straightened out." She also talked about his sleep cycle being off since the time change in the fall and hoping this could be straightened out. LIVING SITUATION: Patient lives with: Memory Care Contact Name: [facility] Contact Address: [address] [place] [id number] Contact Phone #: [phone] Contact Fax #: [phone] FAMILY RELATIONS: Marital Status: # of Marriages: 1 for 34 years # of Children: 2 Magdalene and Abdulaziz [facility] Family Support: Concerned and Cooperative Additional Comments r/t Family: Pt. , Jeri, would like to be contacted for treatment team and other discharge planning. 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 Pt. shared pt. was treated at and put on Aricept. Pt. did not clarify if pt. has been diagnosed with Dementia. Per pt. intake, pt. has Vascular Dementia with BD, insomnia, MDD, anxiety, and Impulse Control Disorder. Pertinent Family History: Pt. reports pt. father was diagnosed with Alzheimer much later in life and was not as severe. HISTORICAL DATA: Childhood Environment: "Intense" "Restrictive" Pt. father was a [employer] medical bill processor, and pt. was expected to act appropriately. Pt. also did not have a good relationship with his mother. Pt. has one sister, Yvette, living in [place]. Psychological Abuse: None Additional Comments: Pt. shared, "Sometimes I wonder though." She went on to share he was a "very intimate ". Drug Abuse History last 12 months: No, Pt. reports, pt. would have a couple of beers a week. 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 Pt. traveled around the world. service: [place] [employer] background: Jain Sexual orientation: Heterosexual Educational Level: Pt. graduated from with a degree in [employer]. 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 was unable to answer questions due to confusion. Pt. and DPOA reports "pt. went downhill quickly". Pt. just stopped driving in May and was doing okay this past Meri. Pt. does not remember his is battling breast cancer. Psychosocial copied and update from pt. previous stay from 01/05/2019 to 01/16/2019.
[2019-11-11 17:00] VITALS: BP 106/67
[2019-11-11 19:07] LABS: THYROXINE 4.2 ug/dL (4.5-12.0)
[2019-11-11] MEDS: QUEtiapine 100 MG TABLET. PO SCH (20:01)
[2019-11-11] MEDS: MELATONIN 3 MG TABLET PO SCH (20:01)
[2019-11-11] MEDS: traZODone 50 MG TABLET. PO SCH (20:01)
[2019-11-11] MEDS: risperiDONE 2 MG TABLET. PO SCH (20:02)
--- NOTE | 2019-11-12 01:54 | EKG ---
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
--- NOTE | 2019-11-12 03:56 | PSYEV ---
DATE OF SERVICE: REASON FOR ADMISSION: This 69-year-old male [facility]. The patient apparently become increasingly agitated, flip the dining table or having hallucinations, talking to imaginary figures, pushing staff and trying to run over other residents with his wheelchair. The patient is also able to walk, but unsteady. HISTORY OF PRESENT ILLNESS: The patient was [facility] because of similar problems with increased confusion, exit-seeking behaviors, emotionally labile, combative, hallucinating, mostly visually disrobing, emotional lability. The patient also restless, spitting on staff members and difficult to redirect. The patient on this admission was refusing to make eye contact, mumbling, not able to answer to questions. The patient also emotionally labile, periods of agitation, and also being tearful and increased psychomotor activity. The patient has a history of Alzheimer's vascular type and has been at the prison for quite some time. His is the DPOA. Apparently, he has been at that facility since December 2008, prior to that, he was living at home. The patient also having multiple physical problems. PAST MEDICAL HISTORY: The patient's gait is unsteady. The patient has difficulty walking, but no recent falls. The patient unable to give much information with regard to his physical problems at this time. CURRENT MEDICATIONS: Include melatonin 4.5 mg at night, trazodone 25 mg at night, ____ lorazepam 1 mg in the evening, Depakote 250 mg daily. The patient is also on lorazepam 1 mg at lunch and 1 mg daily. The patient is also on Seroquel 50 mg daily, Depakote 375 mg daily, Cymbalta 40 mg daily, BuSpar 15 mg twice a day, olanzapine 5 mg q. 2 hours p.r.n. and also Haldol 0.5 mg p.r.n. q. 2 hours. LABORATORY DATA: The patient's lab reviewed. The patient's hemoglobin 11.9, RBC 3.8. The patient's BUN was 26. PSYCHOSOCIAL HISTORY: The patient unable to give much information. His is the power of associate attorney. The patient denies of any alcohol or drug abuse. No history of physical, sexual, or emotional abuse. FAMILY HISTORY: Noncontributory. MENTAL STATUS EXAMINATION: The patient appeared to be of his stated age, tall, fairly well built, unsteady gait, poor eye contact. The patient is confused, tend to wander, not able to follow directions, also seems to have hearing loss. The patient does not respond to questions. The patient's speech incoherent. The patient is not able to hold a conversation. The patient also has some speech impediment. The patient's affect and mood showed he is anxious, emotionally labile, tearful at times, and also gets agitated easily, paranoid, combative, misinterpretation of his environment and also picking imaginary objects. He is difficult to redirect. He is disoriented to time, place and person. His memory is not testable. The patient does not know where he is. The patient is not able to comprehend. The patient also has problems with his executive functioning, needing assistance with ADLs. The patient's judgment impaired. Insight limited. The patient appears to be functioning on an average level of intelligence based on history. STRENGTH: Supportive . The patient is able to walk, but unsteady, but has not had any falls recently. The patient does not have any major medical issues at this time. WEAKNESSES: The patient is confused, wandering, purposeless movements. The patient had difficulty with his communication. The patient also has explosive temper and emotional lability. DIAGNOSES: AXIS I: 1. Major neurocognitive disorder, most likely Alzheimer's and vascular with delusion, depression and behavioral disturbances. 2. Anxiety disorder, unspecified. 3. Impulse control disorder, unspecified. AXIS II: None. AXIS III: Gait impairment. INITIAL TREATMENT PLAN: The patient will be under observation. The patient is a fall risk. The patient's medications need to be titrated, apparently last time when he was discharged from here, the patient was almost titrated to the smallest dose of Ativan. Currently, he is taking 3 mg and the patient's medication will be reviewed, will be titrated accordingly, try to take him off the Ativan. Continue with the current medications. The patient is encouraged to attend all the activities. LENGTH OF STAY: 7 days. MONICA WATSON MD DR: REAGAN/long JOB#: [id number] / [id number]
[2019-11-12 06:04] VITALS: BP 111/75
--- NOTE | 2019-11-12 07:22 | CONS ---
DATE OF CONSULTATION: 11/11/2019 REASON FOR CONSULTATION: Medical management. HISTORY OF PRESENT ILLNESS: The patient is a 69-year-old male patient who was seen at the Emergency Room for medical clearance. He apparently has been uncooperative, resistive to care, he is pushing staff, flipped over table, tearful, anxious, all this in a background of vascular dementia with neurocognitive disorder, depression, impulse control and anxiety. PAST MEDICAL HISTORY: Significant for vitamin D deficiency, hypokalemia. PAST SURGICAL HISTORY: Unremarkable. FAMILY HISTORY: Unobtainable. SOCIAL HISTORY: He is , apparently he was until recently living with his , who was unable to take care of him. He does not smoke, drink alcohol or use any recreational drugs. REVIEW OF SYSTEMS: Unobtainable. ALLERGIES: He has no known drug allergies. MEDICATIONS: He is currently on following medication: He is on analgesic balm apply 1 application topically 4 times a day, acetaminophen 650 mg every 6 hours, divalproex sodium for Depakote 250 mg with supper and Depakote Sprinkle 375 mg daily, duloxetine 40 mg daily, trazodone 25 mg at bedtime, haloperidol lactate 0.25 mL every 12 hours, olanzapine 5 mg every 2 hours, quetiapine fumarate for Seroquel 100 mg at bedtime, Seroquel 50 mg daily with supper, Seroquel 50 mg daily. He is on lorazepam 1 mg daily with supper, lorazepam 1 mg in the morning, lorazepam daily with lunch and 0.5 mL of 2 mg/mL oral concentrate every hour, buspirone 15 mg twice a day with meals, magnesium hydroxide 30 mL p.o. daily p.r.n. for constipation, Mylanta 15 mL after meals and melatonin 5 mg at bedtime. PHYSICAL EXAMINATION: GENERAL: When I examined him, he looked pale. No jaundice, cyanosis or thyromegaly. No jugular venous distension. No limb edema. VITAL SIGNS: His heart rate was 60, blood pressure was 106/67, temperature was 97.7, respiratory rate was 16 and oxygen saturation 100% on room air. HEAD, EYES, EARS, NOSE AND THROAT: Showed normocephalic, atraumatic. NECK: Supple. HEART: Showed normal first and second heart sounds, with no gallop or murmur. CHEST: Clear to auscultation. No crepitation or rhonchi. ABDOMEN: Distended, soft, nontender. NEUROLOGIC: He is demented; however, without any lateralizing sign. All his cranial nerves are intact. EXTREMITIES: He moves extremities without difficulty. He ambulates without assistance or assistive devices, although he is unsteady on his gait.. LABORATORY DATA: Showed a white cell count 4100, hemoglobin 12, hematocrit 36, MCV 95 and platelet count of 171,000 with normal manual differential. His chemistry showed a serum sodium 142, potassium 3.8, chloride 105, bicarbonate 30, anion gap of 7, BUN 26, creatinine 1, estimated GFR was 74 mL per minute, his glucose was 88, calcium was 8.9, magnesium 2. Serum iron was 43, TIBC was 227 and iron saturation was 19. Total bilirubin, AST, ALT, alkaline phosphatase were normal. Total protein was 7.1, albumin 3.7. Urinalysis essentially unremarkable and was negative for nitrite, leukocyte esterase, rare wbc's and no bacteria. His toxic screen showed his valproic acid was 63 mcg/mL, which is well within therapeutic range. IMPRESSION: In summary, this is a 69-year-old male patient who was [facility] on account of being resistive, pushing staff, flipped over table, tearful, anxious, all this in a background of vascular dementia with neurocognitive disorder, depression and impulse control. Medically, he has vitamin D deficiency and hypokalemia, although his lab work today showed that his serum potassium was normal at 3.8. PLAN: My plan is to follow all other lab works that are still pending at the time of this dictation and make any necessary recommendation. Thank you Dr. Meredith for allowing me to participate in the care of this patient. YELITZA FERRO MD DR: TAMY/long JOB#: [id number] / [id number]
[2019-11-12] MEDS: busPIRone 15 MG TABLET. PO SCH ×2 (08:40→17:28)
[2019-11-12] MEDS: DULoxetine HCL 20 MG CAPSULE.DR PO SCH (08:40)
[2019-11-12] MEDS: DIVALPROEX 125 MG CAP.SPRINK PO SCH ×2 (08:40→17:28)
[2019-11-12] MEDS: risperiDONE 2 MG TABLET. PO SCH ×2 (08:40→20:16)
--- NOTE | 2019-11-12 08:40 | NUR ---
Patient in the dining room, sobbing and extremely disorganized. Patient calmed down on his own after this nurse provided emotional support and redirection. He is compliant with taking his medications whole. No agitation at this time.
[2019-11-12] MEDS: LORazepam 1 MG TABLET PO SCH ×3 (08:41→17:28)
--- NOTE | 2019-11-12 09:08 | TX PLAN ---
Interdisciplinary Tx Plan Admission Information Nov 10, 2019 at 21:22 Legal Status (on Admission): Voluntary DPOA/Guardian Name: Jeri Crawford DPOA Contact Other Contact Name: [facility] Other Contact Verified Code Status: DNR Allergies: Coded Allergies: No Known Drug Allergies (Unverified , 01/05/19) Estimated Length of Stay: 10 Diagnoses Primary Diagnosis: Major Neurocognitive Disorder, Alzheimers Vascular with Delusions, Depression with BD, Anxiety Disorder Unspecified, and Impulse Control Disorder Unspecified Reasons for Admission: Agitated, Anxiety/Panic, Hallucinations, Poor impulse control Problem in Patient's Words: Pt. unable to verbalize. Problems Active Problems: Per pt. intake, pt. had increase agitation, flipped dining table over, hallucinating, tearful, anxious, pushing staff, tries to propel peers in their wheelchairs, resists cares, and labile mood. Inactive Problems: Pt. is medicaiton compliant. Pt Strengths/Limitations Ability for [place]: Poor Cognitive Functioning/Ability: Poor Communication Skills/Ability: Poor Financial Resources: Good Insight/Judgement: Poor Intellectual Ability: Poor Physical Health: Fair Social Skills: Poor Stability in Family: Good Verbal Skills: Poor Discharge Criteria Discharge Criteria: OP monitor medical prob, Improved behavior, Improved mood/thought Preliminary Discharge Plan Preliminary DC Plan: Current Living Arrange. Special Precautions Special Precautions: Agitation/Assault Fall Risk: Low Initial D/C Plan Pt. will return to [facility] once stable. Identified Discharge Needs: Pt. will need a follow up with PCP. Currently Utilized Resources Currently Utilized Resources/P: PCP - Dr. Chance Lorenzo Identified Problems/Hx/Goals Objectives/Short-Term Goals Short Term Goals: Control abnormal behavior, Dec. Anxiety/Panic, Dec. Hallucination/Delus, Medication Stabilization, Monitor Med Effects Short Term Goals in Patient's: Pt. unable to verbalize. 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 Pt. traveled around the world. Education: Pt. graduated from with a degree in [employer] Englishism. Community Follow-up Pt. will need a follow up appointment with PCP. Community Provider/Family Inpu: Pt. asked if the stay is for medication changes. 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 , Jeri, would like to be contacted for treatment team. JONO CLAIRE Nov 12, 2019 09:08
--- NOTE | 2019-11-12 09:50 | NUR ---
Patient in the day room door checking and exit seeking, became agitated when redirected. PRN per eMar given.
--- NOTE | 2019-11-12 10:25 | NUR ---
ACTIVITY THERAPY ASSESSMENT Completed based on obesrvation, interview, and Group Insurance Specialist notes. Pt. is often wandering the hallways, difficult to engage, sleeping, or intrusive with others. He struggles to communicate needs and follow directions. BUSINESS SERVICES CLERK asked Pt. to manipulate a pipeline maintenance supervisor in different ways; however, Pt. did not follow and ended up putting it in his pocket. Pt. appears to enjoy a smaller and more quiet atmosphere. Per Group Insurance Specialist's Psychosocial, Pt. did not have hobbies, only worked. 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 Initial goal aimed to increase sensory stimulation: Pt. will participate in at least one individual Activity Therapy session before discharge.
[2019-11-12] MEDS: CHOLECALCIFEROL (VITAMIN D3) 50,000 UNIT CAPSULE PO SCH (14:26)
[2019-11-12] MEDS: LORazepam INTENSOL 2 MG/ML BOTTLE PO PRN (14:40)
--- NOTE | 2019-11-12 14:42 | NUR ---
Patient in the day room, extremely disorganized, grabbing other patients, pushing staffs, and distracting group. Patient is extremely confused and hard to redirect. PRN given per eMar.
[2019-11-12 16:02] VITALS: BP 136/75
[2019-11-12] MEDS: MELATONIN 3 MG TABLET PO SCH (20:16)
[2019-11-12] MEDS: traZODone 50 MG TABLET. PO SCH (20:16)
[2019-11-12] MEDS: QUEtiapine 100 MG TABLET. PO SCH (20:16)
--- NOTE | 2019-11-12 22:32 | NUR ---
Nursing note: Assumed care of pt in the secured hallway. He is checking doors and attempting to sisal picker things from floor that isn't there. He was compliant with meds and assessment but does not respond or speak when spoken to. He is confused and unable to comprehend surroundings. No s/s or c/o pain.
--- NOTE | 2019-11-13 00:17 | PN ---
DATE: 11/12/2019 SUBJECTIVE: The patient was seen today, met with the staff, chart reviewed. The patient is still confused, disorganized, restless, wandering, constantly checking the doors, not able to follow directions. The patient is also exhibiting poor impulse control, low frustration tolerance and significant mood swings. OBSERVATION: VITAL SIGNS: Temperature 97.3, blood pressure 111/75, pulse 61, respirations 18, O2 sat 98%. Slept about 7 hours last night. LABORATORY DATA: The patient's lab reviewed. The patient's hemoglobin 11.9. The patient's BUN 26. No other changes. CURRENT MEDICATIONS: Risperdal 2 mg b.i.d., melatonin 4.5 mg at night, trazodone 25 mg at night, Seroquel 100 mg at night, lorazepam 1 mg daily, Depakote 250 mg at night, lorazepam 1 mg at lunch and lorazepam 1 mg daily, duloxetine 40 mg daily, Depakote 375 mg daily, buspirone 15 mg b.i.d. The patient is also on p.r.n. olanzapine and lorazepam. The patient's behavior improved slightly. The patient is not having any major side effects. ASSESSMENT: 1. Major neurocognitive disorder, most likely Alzheimer's with vascular with delusion, depression and behavioral disturbances. 2. Anxiety disorder, unspecified. 3. Impulse control disorder, unspecified. PLAN: To continue with the treatment. LENGTH OF STAY: 7-10 days. MONICA WATSON MD DR: REAGAN/long JOB#: [id number] / [id number]
[2019-11-13 06:09] VITALS: BP 122/77
[2019-11-13] MEDS: busPIRone 15 MG TABLET. PO SCH ×2 (08:30→17:00)
[2019-11-13] MEDS: DIVALPROEX 125 MG CAP.SPRINK PO SCH ×2 (08:30→17:00)
[2019-11-13] MEDS: risperiDONE 2 MG TABLET. PO SCH ×2 (08:31→20:10)
[2019-11-13] MEDS: LORazepam 1 MG TABLET PO SCH ×3 (08:31→17:00)
[2019-11-13] MEDS: DULoxetine HCL 20 MG CAPSULE.DR PO SCH (08:31)
--- NOTE | 2019-11-13 14:00 | NUR ---
Social work student (SWS) and pt spent an hour together. Pt was calm and not as intrusive or distraught as in the morning. Pt sat down in a seat and spent time flipping through and looking at a crooked newspaper. Then SWS gave pt the large wooden board with hardware switches and knobs. Pt was preoccupied with the wooden board and appeared calm.
[2019-11-13 15:36] VITALS: BP 134/73
--- NOTE | 2019-11-13 15:55 | NUR ---
Pt up adl in halls. Wanders. Compliant with meds in pudding.
[2019-11-13] MEDS: QUEtiapine 100 MG TABLET. PO SCH (20:10)
[2019-11-13] MEDS: traZODone 50 MG TABLET. PO SCH (20:10)
[2019-11-13] MEDS: MELATONIN 3 MG TABLET PO SCH (20:10)
[2019-11-13] MEDS: LORazepam INTENSOL 2 MG/ML BOTTLE PO PRN (21:28)
--- NOTE | 2019-11-13 21:35 | NUR ---
Nursing note: Assumed care of pt in the day room. He is wandering and unpredictable. Difficult to redirect. He will not stay seated and puts himself on the floor to crawl around. Pt is combative and resistive with cares. Meds given in food and prn ativan 1mg given per order.
--- NOTE | 2019-11-14 01:40 | PN ---
DATE: 11/13/2019 SUBJECTIVE: The patient was seen today, met with the staff, chart reviewed. The patient's behavior remains the same, confused, withdrawn, noncommunicative, pacing, not able to follow directions. Staff also reports he is intrusive, touching people and no awareness of his surroundings. OBSERVATION: VITAL SIGNS: Temperature 96.4, blood pressure 122/77, pulse 50, respirations 18, O2 sat 100%. GENERAL: Slept about 7 hours last night. The patient's appetite is fair. LABORATORY DATA: The patient's lab reviewed. MEDICATIONS: The patient's current medications include Risperdal 2 mg b.i.d., melatonin 4.5 mg at bedtime, trazodone 25 mg at night, Seroquel 100 mg at night, lorazepam 1 mg t.i.d. p.o., Cymbalta 40 mg daily, Depakote 375 mg daily, BuSpar 50 mg b.i.d. The patient also is on p.r.n. lorazepam and olanzapine. The patient is not having any side effects. No falls. OBSERVATION: 1. Major neurocognitive disorder, most likely Alzheimer's with delusions, depression and behavioral disturbances. 2. Anxiety disorder, unspecified. 3. Impulse control disorder, unspecified. PLAN: To continue with the treatment. LENGTH OF STAY: 7-10 days. We will consider decreasing Seroquel at night since he is on two antipsychotic drugs. MONICA WATSON MD DR: REAGAN/long JOB#: [id number] / [id number]
[2019-11-14 06:17] VITALS: BP 101/76
[2019-11-14] MEDS: DULoxetine HCL 20 MG CAPSULE.DR PO SCH (08:27)
[2019-11-14] MEDS: risperiDONE 2 MG TABLET. PO SCH ×2 (08:28→20:12)
[2019-11-14] MEDS: busPIRone 15 MG TABLET. PO SCH ×2 (08:28→17:00)
[2019-11-14] MEDS: DIVALPROEX 125 MG CAP.SPRINK PO SCH ×2 (08:28→17:00)
[2019-11-14] MEDS: LORazepam 1 MG TABLET PO SCH ×3 (08:28→17:00)
[2019-11-14 15:41] VITALS: BP 150/84
--- NOTE | 2019-11-14 16:52 | NUR ---
Pt wandering. restless. takes meds. showered without difficulty.
[2019-11-14] MEDS ORDERED: NYSTATIN TOPICAL POWDER 15GM BOTTLE. TP ONE (19:54)
[2019-11-14] MEDS: QUEtiapine 100 MG TABLET. PO SCH (20:12)
[2019-11-14] MEDS: traZODone 50 MG TABLET. PO SCH (20:13)
[2019-11-14] MEDS: MELATONIN 3 MG TABLET PO SCH (20:14)
--- NOTE | 2019-11-15 01:26 | PN ---
DATE: 11/14/2019 SUBJECTIVE: The patient was seen today. I met with the staff and chart reviewed. The patient's behavior remains the same, unpredictable. The patient is either sleeping or when he is awake, he is constantly pacing, unable to settle down, increased psychomotor activity and restlessness. The patient also intrusive, not able to follow directions. The patient picking up food from the other plates during lunchtime. The patient is having problems with impulse control and low frustration tolerance. OBSERVATION: Temperature 96.9, blood pressure 101/76, pulse 76, respirations 16, O2 sat 96%. Slept about 7 hours last night. CURRENT MEDICATIONS: The patient's medications reviewed, is currently on Risperdal 2 mg b.i.d., melatonin 4.5 mg at bedtime, trazodone 25 mg at night, Seroquel 100 mg at night, lorazepam 1 mg t.i.d. p.o., Cymbalta 40 mg daily, Depakote 375 mg daily, BuSpar 50 mg b.i.d. Staff reports that the patient has been refusing his medications most of the time and apparently is not getting the prescribed doses. Therefore, it is difficult to evaluate the patient's response to medications. The patient apparently not having any major side effects with medications at the time even when he is taking some of them. No falls, but he is a fall risk. The patient needing close observation. ASSESSMENT: 1. Major neurocognitive disorder, most likely Alzheimer's with delusions, depression, and behavioral disturbances. 2. Anxiety disorder, unspecified. 3. Impulse control disorder, unspecified. PLAN: To continue with the treatment. MONICA WATSON MD DR: REAGAN/long JOB#: [id number] / [id number]
--- NOTE | 2019-11-15 04:20 | NUR ---
Nursing Note The patient was located in the day room for his medication and assessment. The patient took his medication crushed in chocolate ice cream. The patient was extremely disorganized and had difficulty answering even basic assessment questions. The patient was restless prior to HS. the patient is currently sleeping in his room.
[2019-11-15 05:54] VITALS: BP 141/86
[2019-11-15] MEDS: busPIRone 15 MG TABLET. PO SCH ×2 (08:31→17:00)
[2019-11-15] MEDS: risperiDONE 2 MG TABLET. PO SCH ×2 (08:31→20:06)
[2019-11-15] MEDS: LORazepam 1 MG TABLET PO SCH ×3 (08:31→17:00)
[2019-11-15] MEDS: DULoxetine HCL 20 MG CAPSULE.DR PO SCH (08:32)
[2019-11-15] MEDS: DIVALPROEX 125 MG CAP.SPRINK PO SCH ×2 (08:32→17:00)
[2019-11-15 16:17] VITALS: BP 134/74
--- NOTE | 2019-11-15 18:13 | NUR ---
Pt up wandering in halls. in others rooms. Compliant with meds and cares. Pt was placed in [place] prior to supper as pt was targeting an aide. Was attempting to grab her breasts and try and kiss her. Sitting quietly at this time.
[2019-11-15] MEDS: QUEtiapine 100 MG TABLET. PO SCH (20:06)
[2019-11-15] MEDS: traZODone 50 MG TABLET. PO SCH (20:06)
[2019-11-15] MEDS: MELATONIN 3 MG TABLET PO SCH (20:06)
--- NOTE | 2019-11-16 00:05 | NUR ---
At start of shift pt was in [place] walking around quietly at times he would garbage pick up man unseen things and try to eat them. He was then walked to dining room where he remained restless. Meds were given crushed in ensure. Approximately 1 hour after meds pt was drowsy and taken to bed and been sleeping well since.
[2019-11-16 05:32] VITALS: BP 94/50
[2019-11-16] MEDS: busPIRone 15 MG TABLET. PO SCH ×2 (08:34→17:38)
[2019-11-16] MEDS: DULoxetine HCL 20 MG CAPSULE.DR PO SCH (08:34)
[2019-11-16] MEDS: LORazepam 1 MG TABLET PO SCH ×3 (08:34→17:38)
[2019-11-16] MEDS: DIVALPROEX 125 MG CAP.SPRINK PO SCH ×2 (08:34→17:39)
[2019-11-16] MEDS: risperiDONE 2 MG TABLET. PO SCH ×2 (08:34→19:49)
--- NOTE | 2019-11-16 09:59 | PN ---
DATE: 11/15/2019 SUBJECTIVE: The patient was seen today, met with the staff, chart reviewed. The patient continues to have behavior problems, pacing, trying to unlock the doors, purposeless movements. The patient is able to walk. No falls. The patient also pleasant at times, able to shake hands, able to communicate. Most of the time, the patient is disorganized with his thinking, severe cognitive deficits and also difficult to redirect. Staff observed that he gets extremely confused at times, tends to wander, restlessness, difficult to redirect him. OBSERVATION: VITAL SIGNS: Temperature 97.2, blood pressure 141/86, pulse 59, respirations 16, O2 sat 96%. GENERAL: Slept about 7 hours last night. The patient's appetite is fair. LABORATORY DATA: The patient's lab reviewed. MEDICATIONS: The patient's current medications include Risperdal 2 mg b.i.d., melatonin 4.5 mg at bedtime, trazodone 25 mg at night, Seroquel 100 mg at night, lorazepam 1 mg t.i.d. p.o., Cymbalta 40 mg daily and Depakote 375 mg daily and BuSpar 15 mg b.i.d. p.o. The patient is not having any side effects. ASSESSMENT: 1. Major neurocognitive disorder, most likely Alzheimer's with delusions, depression, and behavioral disturbances. 2. Anxiety disorder, unspecified. 3. Impulse control disorder, unspecified. PLAN: To continue with the treatment. LENGTH OF STAY: 7-10 days. MONICA WATSON MD DR: REAGAN/long JOB#: [id number] / [id number]
--- NOTE | 2019-11-16 14:30 | NUR ---
Pt in dining room for morning meds and assessment. Pt took meds crushed in chocolate ice cream. No agitation or aggression noted. Pt disorganized, wandering in other pt rooms, also invasive with other pts at times.
[2019-11-16 15:34] VITALS: BP 121/77
[2019-11-16] MEDS: traZODone 50 MG TABLET. PO SCH (19:49)
[2019-11-16] MEDS: MELATONIN 3 MG TABLET PO SCH (19:50)
[2019-11-16] MEDS: QUEtiapine 100 MG TABLET. PO SCH (19:50)
--- NOTE | 2019-11-16 23:13 | NUR ---
Pt withdrawn laying in bed with eyes closed at shift change. Pt confused and disorganized. Pt cooperative with assessment and compliant with medications administered crushed in pudding.
--- NOTE | 2019-11-17 00:43 | PN ---
DATE: 11/16/2019 SUBJECTIVE: The patient was seen today, met with the staff, chart reviewed. The patient's behavior remains the same, difficult to redirect, unsteady gait, extremely confused, tend to wander. OBSERVATION: VITAL SIGNS: Temperature 97.1, blood pressure 94/50, pulse 63, respirations 18, O2 sat 96%. GENERAL: Slept about 7 hours last night. The patient's appetite is fair. He needs to be supervised. MEDICATIONS: The patient's current medications include Risperdal 2 mg b.i.d., melatonin 4.5 mg at bedtime, trazodone 25 mg at night, Seroquel 100 mg at night, lorazepam 1 mg t.i.d. p.o., Cymbalta 40 mg daily and Depakote 375 mg daily and BuSpar 15 mg b.i.d. p.o. The patient is not having any side effects. ASSESSMENT: 1. Major neurocognitive disorder, most likely Alzheimer's with delusions, depression, and behavioral disturbances. 2. Anxiety disorder, unspecified. 3. Impulse control disorder, unspecified. PLAN: To continue with the treatment. MONICA WATSON MD DR: REAGAN/long JOB#: [id number] / [id number]
[2019-11-17 05:25] VITALS: BP 133/78
[2019-11-17 06:53] LABS: BASO % 1 % (0-3); EOS # 0.3 x10^3/uL (0.0-0.7); EOS % 6 % (0-3); HEMATOCRIT 40.4 % (39.0-53.0); HEMOGLOBIN 13.5 g/dL (13.0-17.5); LYMPH # 1.2 x10^3/uL (1.0-4.8); LYMPH % 26 % (24-48); MEAN CORPUSCULAR HEMOGLOBIN 32 pg (25-35); MEAN CORPUSCULAR HGB CONC 33 g/dL (31-37); MEAN CORPUSCULAR VOLUME 95 fL (79-100); MONO # 0.6 x10^3/uL (0.0-1.1); MONO % 13 % (0-9); NEUT # 2.4 x10^3uL (1.8-7.7); NEUT % 54 % (31-73); PLATELET COUNT 171 x10^3/uL (140-400); RED BLOOD COUNT 4.26 x10^6/uL (4.30-5.70); RED CELL DISTRIBUTION WIDTH 14.5 % (11.5-14.5); WHITE BLOOD COUNT 4.4 x10^3/uL (4.0-11.0)
[2019-11-17 07:17] LABS: ALBUMIN 3.7 g/dL (3.4-5.0); CALCIUM 9.2 mg/dL (8.5-10.1); CREATININE 0.9 mg/dL (0.7-1.3); GFR 83.7; POTASSIUM 4.4 mmol/L (3.5-5.1); TOTAL BILIRUBIN 0.3 mg/dL (0.2-1.0); TOTAL PROTEIN 7.3 g/dL (6.4-8.2)
[2019-11-17] MEDS: LORazepam 1 MG TABLET PO SCH ×3 (09:20→17:15)
[2019-11-17] MEDS: risperiDONE 2 MG TABLET. PO SCH ×2 (09:20→19:52)
[2019-11-17] MEDS: busPIRone 15 MG TABLET. PO SCH ×2 (09:20→17:15)
[2019-11-17] MEDS: DULoxetine HCL 20 MG CAPSULE.DR PO SCH (09:20)
[2019-11-17] MEDS: DIVALPROEX 125 MG CAP.SPRINK PO SCH ×2 (09:21→17:15)
--- NOTE | 2019-11-17 11:05 | NUR ---
Patient in hallway near nurses station taking his socks off and playing with his toes. He then went to his room and sat in a chair. Compliant with medications taken crushed in pudding. Nurse provided patient with refillable lidded cup full of ice water and patient encouraged to drink fluids. He drank 240ml and was still drinking water when nurse left the room. Patient s current BU is 30 as of this morning lab results.
--- NOTE | 2019-11-17 12:07 | NUR ---
patient observed ambulating near [facility] with unsteady gait. patient assisted to chair. Patient removes his non-slip socks repeatedly. Staff has asked him to leave them on and he doesn't seem to comprehend. Will continue to monitor.
--- NOTE | 2019-11-17 13:31 | NUR ---
Patient sleeping since before lunch. Held 1200 ativan.
[2019-11-17 15:57] VITALS: BP 146/91
--- NOTE | 2019-11-17 17:22 | NUR ---
Patient wandering in hallway, disorganized. Compliant with 1700 medications given crushed in 1/2 of a strawberry boost. Patient trying to get up from dinner table, needing encouragement to eat. Staff is assisting patient to eat.
[2019-11-17] MEDS: MELATONIN 3 MG TABLET PO SCH (19:52)
[2019-11-17] MEDS: QUEtiapine 100 MG TABLET. PO SCH (19:52)
[2019-11-17] MEDS: traZODone 50 MG TABLET. PO SCH (19:52)
[2019-11-17] MEDS: MAGNESIUM HYDROXIDE 2,400 MG/30 ML ORAL.SUSP. PO PRN (19:52)
--- NOTE | 2019-11-17 20:55 | NUR ---
Pt in day room at shift change. Pt restless, disorganized, and intrusive with others. Pt becomes agitated with re-direction. Pt was escorted to [facility] for de-escalation and PRN Zydis administered hidden in Boost along with pt's scheduled HS medications. Pt consumed the Boost with medications and calmed after approximately 30 minutes. Pt was then brought back into the day room. PRN MOM also administered this evening.
--- NOTE | 2019-11-17 22:09 | PDOC ---
Exam Note: Manoj Note: Please also refer to the separate dictated note~for this date of service dictated separately.~Patient seen individually. Discussed the patient with Nursing staff reviewed the chart.~Reviewed interim history and current functioning. Reviewed vital signs,~Labs/ Radiology~and current medications noted below. Continue current treatment with the changes noted in the dictated addendum note Assessment: Vital Signs/I&O: Vital Signs Date Time Temp Pulse Resp B/P (MAP) Pulse Ox O2 Delivery O2 Flow Rate FiO2 11/17/19 15:57 97.6 84 16 146/91 (109) 99 11/17/19 05:25 Room Air I & O 11/16/19 11/16/19 11/17/19 15:00 23:00 07:00 Intake Total 480 ml 120 ml 240 ml Balance 480 ml 120 ml 240 ml Labs: Laboratory Tests Test 11/17/19 06:39 White Blood Count 4.4 x10^3/uL (4.0-11.0) Red Blood Count 4.26 x10^6/uL (4.30-5.70) L Hemoglobin 13.5 g/dL (13.0-17.5) Hematocrit 40.4 % (39.0-53.0) Mean Corpuscular Volume 95 fL (79-100) Mean Corpuscular Hemoglobin 32 pg (25-35) Mean Corpuscular Hemoglobin Concent 33 g/dL (31-37) Red Cell Distribution Width 14.5 % (11.5-14.5) Platelet Count 171 x10^3/uL (140-400) Neutrophils (%) (Auto) 54 % (31-73) Lymphocytes (%) (Auto) 26 % (24-48) Monocytes (%) (Auto) 13 % (0-9) H Eosinophils (%) (Auto) 6 % (0-3) H Basophils (%) (Auto) 1 % (0-3) Neutrophils # (Auto) 2.4 x10^3uL (1.8-7.7) Lymphocytes # (Auto) 1.2 x10^3/uL (1.0-4.8) Monocytes # (Auto) 0.6 x10^3/uL (0.0-1.1) Eosinophils # (Auto) 0.3 x10^3/uL (0.0-0.7) Basophils # (Auto) 0.0 x10^3/uL (0.0-0.2) Sodium Level 145 mmol/L (136-145) Potassium Level 4.4 mmol/L (3.5-5.1) Chloride Level 107 mmol/L (98-107) Carbon Dioxide Level 33 mmol/L (21-32) H Anion Gap 5 (6-14) L Blood Urea Nitrogen 30 mg/dL (8-26) H Creatinine 0.9 mg/dL (0.7-1.3) Estimated GFR (Cockcroft-Gault) 83.7 BUN/Creatinine Ratio 33 (6-20) H Glucose Level 97 mg/dL (70-99) Calcium Level 9.2 mg/dL (8.5-10.1) Magnesium Level 2.0 mg/dL (1.8-2.4) Total Bilirubin 0.3 mg/dL (0.2-1.0) Aspartate Amino Transferase (AST) 18 U/L (15-37) Alanine Aminotransferase (ALT) 25 U/L (16-63) Alkaline Phosphatase 77 U/L (46-116) Total Protein 7.3 g/dL (6.4-8.2) Albumin 3.7 g/dL (3.4-5.0) Albumin/Globulin Ratio 1.0 (1.0-1.7) Current Medications: I have reviewed the current psychotropics carefully including drug interactions. Risk benefit ratio favors no change other than as noted in my dictated progress note. Diagnosis: Problems: (1) Anxiety disorder (2) Impulse control disorder (3) Vascular dementia with depressed mood (4) Vascular dementia with delusions (5) Alzheimer's dementia (6) Vascular dementia with behavior disturbance (7) Major neurocognitive disorder KODI SLATER MD Nov 17, 2019 22:09
[2019-11-18 05:24] VITALS: BP 111/69
[2019-11-18] MEDS: DULoxetine HCL 20 MG CAPSULE.DR PO SCH (08:36)
[2019-11-18] MEDS: LORazepam 1 MG TABLET PO SCH ×3 (08:36→17:00)
[2019-11-18] MEDS: busPIRone 15 MG TABLET. PO SCH ×2 (08:36→17:47)
[2019-11-18] MEDS: DIVALPROEX 125 MG CAP.SPRINK PO SCH ×2 (08:36→17:48)
[2019-11-18] MEDS: risperiDONE 2 MG TABLET. PO SCH ×2 (08:37→21:12)
--- NOTE | 2019-11-18 09:38 | NUR ---
Patient in dining room at breakfast. Compliant with medications given crushed in chocolate pudding. Patient was sitting in a wheelchair, bending over and trying to touch a staff members shoes and pant leg. He was slightly intrusive with peer sitting next to him and was touching her wheelchair tires and brake. Patient was observed sleeping in a chair in the day room after breakfast. He has been calm and pleasant although disorganized.
--- NOTE | 2019-11-18 10:07 | NUR ---
SW spoke to pt. , Jeri, regarding treatment team being moved to Saturday. Jeri requested an update, which SW did share pt. nursing and doctor's notes. SW reported pt. has periods of calm confusion and other periods of agitation.
[2019-11-18 16:30] VITALS: BP 129/82
--- NOTE | 2019-11-18 20:09 | NUR ---
Dr. Meredith ordered Ativan taper for patient as follows: 11/19 Ativan 0.5mg 0900, 1mg 1200 and 1mg 1700. 11/22 Ativan 0.5mg 0900, 0.5mg 1200 and 1mg 1700. 11/25 Ativan 0.5mg TID @ 0900, 1200, 1700
[2019-11-18] MEDS: traZODone 50 MG TABLET. PO SCH (21:12)
[2019-11-18] MEDS: QUEtiapine 100 MG TABLET. PO SCH (21:12)
[2019-11-18] MEDS: MELATONIN 3 MG TABLET PO SCH (21:13)
[2019-11-18 21:30] VITALS: BP 123/71
--- NOTE | 2019-11-18 22:27 | NUR ---
Nursing Note The patient was located in his room laying in bed for his assessment and medication pass. The patient took his medication crushed in pudding. The patient was drowsy but was easy to arouse. The patient remains laying in bed sleeping at this time.
--- NOTE | 2019-11-18 22:30 | PN ---
DATE: 11/17/2019 PSYCHIATRIC PROGRESS NOTE This late entry, 11/17, covers elements not covered in my initial note. SUBJECTIVE: I met with the patient evening of 11/17. Per ASTER Wallace, the patient slept 6-1/2 hours previous night. He has been restless, trying to touch the feet of nursing staff, disorganized, undressing himself, withdrawn. At previous evening, he was resistive to care. He was referred to us from [facility] somewhat sedated during the day. REVIEW OF SYSTEMS: Ambulation impaired with walker. No CV, , pulmonary, eye, ENT system symptoms on review. Reliability poor. MENTAL STATUS EXAM: Oriented to himself. Insight, judgment, recent and remote memory, attention, concentration, fund of knowledge poor, consistent with his diagnosis. IMPRESSION: Major neurocognitive disorder, vascular with delusion; depression; behavioral disturbance; anxiety disorder, unspecified; impulse control disorder, unspecified. Rest unchanged. PLAN: Continue current psychotropics and we may consider tapering the Ativan schedule. Maintain Cymbalta, BuSpar, Depakote, melatonin. Risperdal may need to be tapered as well and continue trazodone. KODI SLATER MD DR: DEB/long JOB#: [id number] / [id number]
--- NOTE | 2019-11-18 23:30 | PDOC ---
Exam Note: Manoj Note: Please also refer to the separate dictated note~for this date of service dictated separately.~Patient seen individually. Discussed the patient with Nursing staff reviewed the chart.~Reviewed interim history and current functioning. Reviewed vital signs,~Labs/ Radiology~and current medications noted below. Continue current treatment with the changes noted in the dictated addendum note Assessment: Vital Signs/I&O: Vital Signs Date Time Temp Pulse Resp B/P (MAP) Pulse Ox O2 Delivery O2 Flow Rate FiO2 11/18/19 21:30 97.8 88 18 123/71 (88) 96 Room Air I & O 11/17/19 11/17/19 11/18/19 15:00 23:00 07:00 Intake Total 720 ml 480 ml Balance 720 ml 480 ml Current Medications: I have reviewed the current psychotropics carefully including drug interactions. Risk benefit ratio favors no change other than as noted in my dictated progress note. Diagnosis: Problems: (1) Medical clearance for psychiatric admission (2) Anxiety disorder (3) Impulse control disorder (4) Vascular dementia with depressed mood (5) Vascular dementia with delusions (6) Alzheimer's dementia (7) Vascular dementia with behavior disturbance (8) Major neurocognitive disorder KODI SLATER MD Nov 18, 2019 23:30
[2019-11-19 06:30] VITALS: BP 127/80
[2019-11-19] MEDS: LORazepam 1 MG TABLET PO SCH ×3 (09:56→17:23)
[2019-11-19] MEDS: CHOLECALCIFEROL (VITAMIN D3) 50,000 UNIT CAPSULE PO SCH (09:57)
[2019-11-19] MEDS: DIVALPROEX 125 MG CAP.SPRINK PO SCH ×2 (09:57→17:23)
[2019-11-19] MEDS: DULoxetine HCL 20 MG CAPSULE.DR PO SCH (09:57)
[2019-11-19] MEDS: busPIRone 15 MG TABLET. PO SCH ×2 (09:57→17:23)
[2019-11-19] MEDS: risperiDONE 2 MG TABLET. PO SCH ×2 (09:57→20:32)
--- NOTE | 2019-11-19 10:06 | NUR ---
SW spoke to Denis, [facility], who were requesting an update on pt. SW shared pt. notes and will call back tomorrow after treatment team to discuss a tentative discharge.
--- NOTE | 2019-11-19 15:04 | NUR ---
Nursing Note Patient in the secured hallway at shift change. He's calm and pleasant, and attempting to pick things up from the floor that isn't there and trying to eat them. He is compliant with crushed medications in chocolate pudding and does not respond to any assessment questions. Patient has been disorganized, restless, wandering the hallways, door checking, and intrusive to other patient's room this shift. No agitation and aggression noted at this time. NO s/s and c/o pain. Will continue to monitor.
[2019-11-19 16:18] VITALS: BP 134/81
[2019-11-19] MEDS: QUEtiapine 100 MG TABLET. PO SCH (20:32)
[2019-11-19] MEDS: MELATONIN 3 MG TABLET PO SCH (20:32)
[2019-11-19] MEDS: traZODone 50 MG TABLET. PO SCH (20:33)
--- NOTE | 2019-11-19 20:49 | PDOC ---
Exam Note: Manoj Note: Please also refer to the separate dictated note~for this date of service dictated separately.~Patient seen individually. Discussed the patient with Nursing staff reviewed the chart.~Reviewed interim history and current functioning. Reviewed vital signs,~Labs/ Radiology~and current medications noted below. Continue current treatment with the changes noted in the dictated addendum note Assessment: Vital Signs/I&O: Vital Signs Date Time Temp Pulse Resp B/P (MAP) Pulse Ox O2 Delivery O2 Flow Rate FiO2 11/19/19 16:18 97.2 62 18 134/81 (98) 93 11/18/19 21:30 Room Air I & O 11/18/19 11/18/19 11/19/19 15:00 23:00 07:00 Intake Total 600 ml 240 ml 240 ml Balance 600 ml 240 ml 240 ml Current Medications: Meds: Current Medications Medications (Trade) Dose Ordered Sig/Ofe Route PRN Reason Start Time Stop Time Status Last Admin Dose Admin Lorazepam (Ativan) 0.5 mg DAILY PO 11/19/19 09:00 11/19/19 09:56 Lorazepam (Ativan) 1 mg DAILYWLUN PO 11/19/19 12:00 11/21/19 14:00 11/19/19 11:44 I have reviewed the current psychotropics carefully including drug interactions. Risk benefit ratio favors no change other than as noted in my dictated progress note. Diagnosis: Problems: (1) Anxiety disorder (2) Impulse control disorder (3) Vascular dementia with depressed mood (4) Vascular dementia with delusions (5) Alzheimer's dementia (6) Vascular dementia with behavior disturbance (7) Major neurocognitive disorder KODI SLATER MD Nov 19, 2019 20:49
[2019-11-19 21:01] VITALS: BP 135/80
--- NOTE | 2019-11-19 22:37 | NUR ---
Nursing Note The patient was located in the day room for his assessment and medication pass. The patient was drowsy and unsteady on his feet but vital signs were stable. the patient became more alert when this nurse interacted with him. The patient took his medication crushed. The patient is currently located in his room sleeping.
[2019-11-20 05:06] VITALS: BP 135/87
[2019-11-20] MEDS: LORazepam 1 MG TABLET PO SCH ×3 (08:06→17:00)
[2019-11-20] MEDS: DIVALPROEX 125 MG CAP.SPRINK PO SCH ×2 (08:06→17:00)
[2019-11-20] MEDS: DULoxetine HCL 20 MG CAPSULE.DR PO SCH (08:07)
[2019-11-20] MEDS: busPIRone 15 MG TABLET. PO SCH ×2 (08:07→17:00)
[2019-11-20] MEDS: risperiDONE 2 MG TABLET. PO SCH ×2 (08:07→21:13)
[2019-11-20] MEDS: BACLOFEN 10 MG TABLET PO SCH ×2 (09:15→21:13)
--- NOTE | 2019-11-20 11:55 | NUR ---
WEEKLY ACTIVITY THERAPY NOTE Date of Admission: 11/10/2019 Date of AT Assessment: 11/12/2019 Goal aimed: to increase sensory stimulation Initial goal: Pt. will participate in at least one individual Activity Therapy session before discharge. Weekly progress towards goal: did not achieve Group participation level: minimal in two groups Weekly highlights: sat with group for awhile and fidgeted with velez during flower arranging on Saturday afternoon Behaviors observed: short attention span/wandering often, restless, difficult to engage and redirect, attempting to eat non-edible items, intrusive Plan: no change to goal Beneficial adaptations:
--- NOTE | 2019-11-20 13:15 | NUR ---
SW left msg. for Mariposa, Health and Chief Investment Officer at [facility], regarding pt. update and tentative discharge scheduled for the end of next week or the early part of the week after. Pt. , Jeri, was contacted for treatment team.
[2019-11-20 16:18] VITALS: BP 133/68
[2019-11-20 17:56] LABS: BILIRUBIN,URINE NEG (NEG); CLARITY,URINE HAZY; COLOR,URINE YELLOW; GLUCOSE,URINE NEG (NEG); NITRITE,URINE NEG (NEG); UROBILINOGEN,URINE 0.2 mg/dL (0.2 mg/dL)
[2019-11-20 17:57] LABS: AMORPHOUS SEDIMENT,UR PRESENT /HPF; BACTERIA,URINE 0 /HPF (0-FEW); RBC,URINE OCC /HPF (0-2); SQUAMOUS EPITHELIAL CELL,UR OCC /LPF; WBC,URINE OCC /HPF (0-4)
--- NOTE | 2019-11-20 19:12 | NUR ---
Pt up adl in halls. restless, wandering. Urine noted to be foul smelling. Pt unable to follow directions. Straight cathed. UA neg. Compliant with meds and cares.
[2019-11-20] MEDS ORDERED: BACLOFEN 10 MG TABLET PO SCH (21:00)
[2019-11-20] MEDS: traZODone 50 MG TABLET. PO SCH (21:12)
[2019-11-20] MEDS: QUEtiapine 100 MG TABLET. PO SCH (21:13)
[2019-11-20] MEDS: MELATONIN 3 MG TABLET PO SCH (21:13)
--- NOTE | 2019-11-20 21:37 | PDOC ---
Exam Note: Manoj Note: Please also refer to the separate dictated note~for this date of service dictated separately.~Patient seen individually. Discussed the patient with Nursing staff reviewed the chart.~Reviewed interim history and current functioning. Reviewed vital signs,~Labs/ Radiology~and current medications noted below. Continue current treatment with the changes noted in the dictated addendum note Assessment: Vital Signs/I&O: Vital Signs Date Time Temp Pulse Resp B/P (MAP) Pulse Ox O2 Delivery O2 Flow Rate FiO2 11/20/19 16:18 97.4 89 19 133/68 (89) 98 Room Air I & O 11/19/19 11/19/19 11/20/19 15:00 23:00 07:00 Intake Total 480 ml 28 ml Balance 480 ml 28 ml Labs: Laboratory Tests Test 11/20/19 17:40 Urine Collection Type U cath Urine Color Yellow Urine Clarity Hazy Urine pH 5.5 Urine Specific [place] 1.020 Urine Protein Neg (NEG-TRACE) Urine Glucose (UA) Neg mg/dL (NEG) Urine Ketones (Stick) 15 mg/dL (NEG) Urine Blood Neg (NEG) Urine Nitrite Neg (NEG) Urine Bilirubin Neg (NEG) Urine Urobilinogen Dipstick 0.2 mg/dL (0.2 mg/dL) Urine Leukocyte Esterase Neg (NEG) Urine RBC Occ /HPF (0-2) Urine WBC Occ /HPF (0-4) Urine Squamous Epithelial Cells Occ /LPF Urine Amorphous Sediment Present /HPF Urine Bacteria 0 /HPF (0-FEW) Current Medications: Meds: Current Medications Medications (Trade) Dose Ordered Sig/Ofe Route PRN Reason Start Time Stop Time Status Last Admin Dose Admin Baclofen (Lioresal) 10 mg BID PO 11/20/19 09:15 11/20/19 21:13 I have reviewed the current psychotropics carefully including drug interactions. Risk benefit ratio favors no change other than as noted in my dictated progress note. Diagnosis: Problems: (1) Medical clearance for psychiatric admission (2) Anxiety disorder (3) Impulse control disorder (4) Vascular dementia with depressed mood (5) Vascular dementia with delusions (6) Alzheimer's dementia (7) Vascular dementia with behavior disturbance (8) Major neurocognitive disorder KODI SLATER MD Nov 20, 2019 21:37
--- NOTE | 2019-11-20 22:19 | NUR ---
Nursing Note The patient was located in the day room for his assessment and medication pass. The patient was drowsy and unsteady on his feet but vital signs were stable. the patient became more alert when this nurse interacted with him.The patient repeatedly attempted to walk without assistance and was resistive when this nurse attempted to assist the patient into his chair. The patient took his medication crushed. The patient is currently located in his room sleeping.
--- NOTE | 2019-11-20 23:09 | PN ---
DATE: 11/18/2019 PSYCHIATRIC PROGRESS NOTE This late entry 11/18/2019 covers elements not covered in my initial note. SUBJECTIVE: I met with the patient evening of 11/18/2019. Per ASTER Wallace, the patient slept 6-1/2 hours previous night. Anxious, restless, was in the bedroom of another female patient and I redirected him. He is quite oblivious to his surroundings. He has been restless, touching the feet of nursing staff and chairs, oblivious to what he is doing, agitated with redirection. REVIEW OF SYSTEMS: No CV, , pulmonary, eye, ENT system symptoms on review. Reliability poor. MENTAL STATUS EXAM: Oriented to himself. Insight, judgment, recent and remote memory, attention, concentration, fund of knowledge poor, consistent with his diagnosis mentioned in my initial note. PLAN: No change from initial note. We are gradually tapering his Ativan slowly to be discontinued. Rest unchanged. MAN Austin SLATER MD DR: DEB/long JOB#: [id number] / [id number]
--- NOTE | 2019-11-20 23:12 | PN ---
DATE: 11/19/2019 PSYCHIATRIC PROGRESS NOTE This late entry, date of service 11/19/2019, covers elements not covered in my initial note. SUBJECTIVE: I met with the patient evening of 11/19/2019. Per nursing report, the patient slept 8-1/2 hours previous night, restless, anxious, disorganized, picking on his toenails and putting it in his mouth, oblivious of what he is doing. REVIEW OF SYSTEMS: No CV, , pulmonary, eye, ENT system symptoms on review. Reliability poor. MENTAL STATUS EXAM: Oriented to himself. Insight, judgment, recent and remote memory, attention, concentration, fund of knowledge poor, consistent with his diagnosis mentioned in my initial note. PLAN: No change from initial note. Taper the Ativan. Rest unchanged including BuSpar, Cymbalta, Depakote, melatonin, trazodone. MAN Austin SLATER MD DR: DEB/long JOB#: [id number] / [id number]
[2019-11-21 04:59] VITALS: BP 149/71
[2019-11-21] MEDS: busPIRone 15 MG TABLET. PO SCH ×2 (08:00→17:00)
[2019-11-21] MEDS: DIVALPROEX 125 MG CAP.SPRINK PO SCH ×2 (09:00→17:00)
[2019-11-21] MEDS: DULoxetine HCL 20 MG CAPSULE.DR PO SCH (09:00)
[2019-11-21] MEDS: risperiDONE 2 MG TABLET. PO SCH ×2 (09:00→19:45)
[2019-11-21] MEDS: LORazepam 1 MG TABLET PO SCH ×3 (09:00→17:00)
[2019-11-21 16:14] VITALS: BP 121/80
--- NOTE | 2019-11-21 16:54 | NUR ---
Pt slept thru breakfast. Up for lunch. Compliant with meds. Restless, intrusive, and resistive to redirection in afternoon. Pt redirected to walk in halls.
[2019-11-21] MEDS: traZODone 50 MG TABLET. PO SCH (19:44)
[2019-11-21] MEDS: QUEtiapine 100 MG TABLET. PO SCH (19:44)
[2019-11-21] MEDS: MELATONIN 3 MG TABLET PO SCH (19:45)
[2019-11-21] MEDS: BACLOFEN 10 MG TABLET PO SCH (19:45)
--- NOTE | 2019-11-21 21:35 | PDOC ---
Exam Note: Manoj Note: Please also refer to the separate dictated note~for this date of service dictated separately.~Patient seen individually. Discussed the patient with Nursing staff reviewed the chart.~Reviewed interim history and current functioning. Reviewed vital signs,~Labs/ Radiology~and current medications noted below. Continue current treatment with the changes noted in the dictated addendum note Assessment: Vital Signs/I&O: Vital Signs Date Time Temp Pulse Resp B/P (MAP) Pulse Ox O2 Delivery O2 Flow Rate FiO2 11/21/19 16:14 98.3 84 18 121/80 (94) 91 11/20/19 16:18 Room Air I & O 11/20/19 11/20/19 11/21/19 15:00 23:00 07:00 Intake Total 360 ml 600 ml Balance 360 ml 600 ml Current Medications: Meds: Current Medications Medications (Trade) Dose Ordered Sig/Ofe Route PRN Reason Start Time Stop Time Status Last Admin Dose Admin Baclofen (Lioresal) 10 mg TID PO 11/21/19 21:00 11/21/19 19:45 I have reviewed the current psychotropics carefully including drug interactions. Risk benefit ratio favors no change other than as noted in my dictated progress note. Diagnosis: Problems: (1) Medical clearance for psychiatric admission (2) Anxiety disorder (3) Impulse control disorder (4) Vascular dementia with depressed mood (5) Vascular dementia with delusions (6) Alzheimer's dementia (7) Vascular dementia with behavior disturbance (8) Major neurocognitive disorder KODI SLATER MD Nov 21, 2019 21:35
--- NOTE | 2019-11-21 23:45 | NUR ---
Pt has been very restless and unsteady this evening. Resistive with redirection. Compliant with crushed medications. Pt intermittently crying.
[2019-11-22 05:39] VITALS: BP 118/71
--- NOTE | 2019-11-22 06:35 | NUR ---
Pt has been highly restless and combative this morning. Pt has been toileted, walked around the unit, music has been played. Redirection unsuccessful. PRN Zyprexa administered sublingually. Pt currently sitting with staff member beside him. Will continue to monitor.
[2019-11-22] MEDS: DULoxetine HCL 20 MG CAPSULE.DR PO SCH (08:02)
[2019-11-22] MEDS: LORazepam 1 MG TABLET PO SCH ×2 (08:02→17:36)
[2019-11-22] MEDS: DIVALPROEX 125 MG CAP.SPRINK PO SCH ×2 (08:02→17:36)
[2019-11-22] MEDS: busPIRone 15 MG TABLET. PO SCH ×2 (08:02→17:36)
[2019-11-22] MEDS: BACLOFEN 10 MG TABLET PO SCH ×3 (08:03→20:08)
[2019-11-22] MEDS ORDERED: risperiDONE 0.5 MG TABLET. PO SCH (09:00)
--- NOTE | 2019-11-22 10:51 | NUR ---
Patient was in the secured hallway during shift change, was wondering and door checking in the morrell. Took medications crushed in pudding, allowed for morning assessment. Patient doesn't appear to be in pain. Is laying down now. No agitation noted, will continue to monitor.
[2019-11-22 11:21] LABS: BASO % 1 % (0-3); EOS # 0.2 x10^3/uL (0.0-0.7); EOS % 5 % (0-3); HEMATOCRIT 38.2 % (39.0-53.0); HEMOGLOBIN 12.7 g/dL (13.0-17.5); LYMPH # 0.9 x10^3/uL (1.0-4.8); LYMPH % 21 % (24-48); MEAN CORPUSCULAR HEMOGLOBIN 31 pg (25-35); MEAN CORPUSCULAR HGB CONC 33 g/dL (31-37); MEAN CORPUSCULAR VOLUME 93 fL (79-100); MONO # 0.5 x10^3/uL (0.0-1.1); MONO % 12 % (0-9); NEUT # 2.7 x10^3uL (1.8-7.7); NEUT % 61 % (31-73); PLATELET COUNT 207 x10^3/uL (140-400); RED BLOOD COUNT 4.09 x10^6/uL (4.30-5.70); RED CELL DISTRIBUTION WIDTH 14.1 % (11.5-14.5); WHITE BLOOD COUNT 4.3 x10^3/uL (4.0-11.0)
[2019-11-22 11:34] LABS: ALBUMIN 3.4 g/dL (3.4-5.0); ALBUMIN/GLOBULIN RATIO 0.9 (1.0-1.7); CALCIUM 8.8 mg/dL (8.5-10.1); GFR 74.1; POTASSIUM 3.5 mmol/L (3.5-5.1); TOTAL BILIRUBIN 0.3 mg/dL (0.2-1.0); TOTAL PROTEIN 7.2 g/dL (6.4-8.2)
[2019-11-22] MEDS: LORazepam 0.5 MG TABLET PO SCH (13:05)
[2019-11-22] MEDS: MAGNESIUM HYDROXIDE 2,400 MG/30 ML ORAL.SUSP. PO PRN (17:36)
--- NOTE | 2019-11-22 17:45 | NUR ---
Patient hasn't had a BM the past few days, PRN Milk of mag given @1737. Patient is now at dinner. Will continue to monitor.
[2019-11-22] MEDS ORDERED: risperiDONE 0.5 MG TABLET. PO ONE ×2 (18:30→21:00)
[2019-11-22] MEDS: QUEtiapine 100 MG TABLET. PO SCH (20:08)
[2019-11-22] MEDS: traZODone 50 MG TABLET. PO SCH (20:09)
[2019-11-22] MEDS: MELATONIN 3 MG TABLET PO SCH (20:09)
--- NOTE | 2019-11-22 21:09 | PDOC ---
Exam Note: Manoj Note: Please also refer to the separate dictated note~for this date of service dictated separately.~Patient seen individually. Discussed the patient with Nursing staff reviewed the chart.~Reviewed interim history and current functioning. Reviewed vital signs,~Labs/ Radiology~and current medications noted below. Continue current treatment with the changes noted in the dictated addendum note Assessment: Vital Signs/I&O: Vital Signs Date Time Temp Pulse Resp B/P (MAP) Pulse Ox O2 Delivery O2 Flow Rate FiO2 11/22/19 05:39 97.7 62 16 118/71 (87) 98 11/20/19 16:18 Room Air I & O 11/21/19 11/21/19 11/22/19 15:00 23:00 07:00 Intake Total 240 ml 0 ml 190 ml Balance 240 ml 0 ml 190 ml Labs: Laboratory Tests Test 11/22/19 11:13 White Blood Count 4.3 x10^3/uL (4.0-11.0) Red Blood Count 4.09 x10^6/uL (4.30-5.70) L Hemoglobin 12.7 g/dL (13.0-17.5) L Hematocrit 38.2 % (39.0-53.0) L Mean Corpuscular Volume 93 fL (79-100) Mean Corpuscular Hemoglobin 31 pg (25-35) Mean Corpuscular Hemoglobin Concent 33 g/dL (31-37) Red Cell Distribution Width 14.1 % (11.5-14.5) Platelet Count 207 x10^3/uL (140-400) Neutrophils (%) (Auto) 61 % (31-73) Lymphocytes (%) (Auto) 21 % (24-48) L Monocytes (%) (Auto) 12 % (0-9) H Eosinophils (%) (Auto) 5 % (0-3) H Basophils (%) (Auto) 1 % (0-3) Neutrophils # (Auto) 2.7 x10^3uL (1.8-7.7) Lymphocytes # (Auto) 0.9 x10^3/uL (1.0-4.8) L Monocytes # (Auto) 0.5 x10^3/uL (0.0-1.1) Eosinophils # (Auto) 0.2 x10^3/uL (0.0-0.7) Basophils # (Auto) 0.0 x10^3/uL (0.0-0.2) Sodium Level 147 mmol/L (136-145) H Potassium Level 3.5 mmol/L (3.5-5.1) Chloride Level 109 mmol/L (98-107) H Carbon Dioxide Level 32 mmol/L (21-32) Anion Gap 6 (6-14) Blood Urea Nitrogen 33 mg/dL (8-26) H Creatinine 1.0 mg/dL (0.7-1.3) Estimated GFR (Cockcroft-Gault) 74.1 BUN/Creatinine Ratio 33 (6-20) H Glucose Level 98 mg/dL (70-99) Calcium Level 8.8 mg/dL (8.5-10.1) Total Bilirubin 0.3 mg/dL (0.2-1.0) Aspartate Amino Transferase (AST) 16 U/L (15-37) Alanine Aminotransferase (ALT) 20 U/L (16-63) Alkaline Phosphatase 75 U/L (46-116) Total Protein 7.2 g/dL (6.4-8.2) Albumin 3.4 g/dL (3.4-5.0) Albumin/Globulin Ratio 0.9 (1.0-1.7) L Current Medications: Meds: Current Medications Medications (Trade) Dose Ordered Sig/Ofe Route PRN Reason Start Time Stop Time Status Last Admin Dose Admin Lorazepam (Ativan) 0.5 mg 1200 PO 11/22/19 12:00 11/22/19 13:05 Risperidone (RisperDAL) 1.5 mg BID PO 11/22/19 09:00 11/22/19 18:21 DC 11/22/19 08:03 Risperidone (RisperDAL) 1.5 mg 1X ONCE PO 11/22/19 21:00 11/22/19 21:01 DC 11/22/19 20:09 I have reviewed the current psychotropics carefully including drug interactions. Risk benefit ratio favors no change other than as noted in my dictated progress note. Diagnosis: Problems: (1) Anxiety disorder (2) Impulse control disorder (3) Vascular dementia with depressed mood (4) Vascular dementia with delusions (5) Alzheimer's dementia (6) Vascular dementia with behavior disturbance (7) Major neurocognitive disorder KODI SLATER MD Nov 22, 2019 21:09
--- NOTE | 2019-11-22 23:54 | NUR ---
Pt located in dayroom this evening. Pt calm and drowsy. Compliant with crushed medications.
[2019-11-23 05:37] VITALS: BP 100/68
[2019-11-23] MEDS: risperiDONE 0.5 MG TABLET. PO SCH ×2 (08:15→19:57)
[2019-11-23] MEDS: LORazepam 1 MG TABLET PO SCH ×2 (08:16→16:50)
[2019-11-23] MEDS: DIVALPROEX 125 MG CAP.SPRINK PO SCH ×2 (08:16→16:50)
[2019-11-23] MEDS: BACLOFEN 10 MG TABLET PO SCH ×3 (08:16→19:57)
[2019-11-23] MEDS: DULoxetine HCL 20 MG CAPSULE.DR PO SCH (08:17)
[2019-11-23] MEDS: busPIRone 15 MG TABLET. PO SCH ×2 (08:17→16:50)
--- NOTE | 2019-11-23 10:16 | NUR ---
SW spoke to Mariposa, Health and Progress Clerk at [facility], to discuss pt. progress and tentative discharge schedule for the early part of the week after next. SW will contact Mariposa later this week to discuss pt. progress towards discharge.
[2019-11-23] MEDS: MAGNESIUM HYDROXIDE 2,400 MG/30 ML ORAL.SUSP. PO PRN (10:25)
[2019-11-23] MEDS: LORazepam 0.5 MG TABLET PO SCH (11:40)
--- NOTE | 2019-11-23 11:51 | PN ---
DATE: 11/20/2019 PSYCHIATRIC PROGRESS NOTE This late entry 11/20/2019 covers elements not covered in my initial note. SUBJECTIVE: I met with the patient in the evening and staffed at a treatment team meeting with the entire team earlier in the day. The patient's , Jeri, attended the conference. The patient slept 8-1/2 hours. Appetite 50-75%, remains confused, distractable, intrusive. Compliant with medications, at times agitated, but does redirect, has been door checking. REVIEW OF SYSTEMS: No CV, , pulmonary, eye, ENT system symptoms on review. Reliability poor. MENTAL STATUS EXAM: Oriented to himself. Insight, judgment, recent and remote memory, attention, concentration, fund of knowledge poor, consistent with his diagnosis mentioned in my initial note. PLAN: No change from initial note. MAN Austin SLATER MD DR: DEB/long JOB#: [id number] / [id number]
--- NOTE | 2019-11-23 11:53 | PN ---
DATE: 11/21/2019 PSYCHIATRIC PROGRESS NOTE This late entry 11/21/2019 covers elements not covered in my initial note. SUBJECTIVE: I met with the patient evening of 11/21/2019. Previous evening, the patient was restless, crying, slept 6-3/4 hours, takes meds in pudding. UA is negative. He is anxious, restless, possibly had some akathisia. REVIEW OF SYSTEMS: No CV, , pulmonary, eye, ENT system symptoms on review. Reliability poor. Gait unsteady. MENTAL STATUS EXAM: Oriented to himself. Insight, judgment, recent and remote memory, attention, concentration, fund of knowledge poor, consistent with his diagnosis mentioned in my initial note. PLAN: Given the possibility of akathisia, we will reduce the Risperdal from 2 mg b.i.d. down to 1.5 mg twice a day. Continue rest unchanged. May need to reduce Risperdal further in due course. Rest unchanged for now. MAN Austin SLATER MD DR: DEB/long JOB#: [id number] / [id number]
--- NOTE | 2019-11-23 11:55 | PN ---
DATE: 11/22/2019 PSYCHIATRIC PROGRESS NOTE This late entry 11/22/2019 covers elements not covered in my initial note. SUBJECTIVE: I met with the patient evening of 11/22/2019. The patient slept 7-1/2 hours previous night. He remains confused, anxious, restless, was restless in the morning, combative, had to be in the [facility], received Zyprexa at 6:30 a.m., took a nap in the afternoon, then did better. REVIEW OF SYSTEMS: No CV, , pulmonary, eye, ENT system symptoms on review. Gait unsteady. MENTAL STATUS EXAM: Reliability poor. Insight, judgment, recent and remote memory, attention, concentration, fund of knowledge poor, consistent with his diagnosis. He is oriented to himself. LABORATORY DATA: Reviewed. IMPRESSION: Major neurocognitive disorder, Alzheimer, vascular with delusion, depression, behavioral disturbance; anxiety disorder, unspecified; impulse control disorder, unspecified. Rest unchanged including a possible akathisia. PLAN: Reduce the Risperdal further from 1.5 b.i.d. down to 1 mg b.i.d. Rest unchanged for now. Ativan is being tapered. Remains on Depakote, BuSpar, Cymbalta along with Seroquel 100 mg at bedtime, Zyprexa p.r.n. MAN Austin SLATER MD DR: DEB/long JOB#: [id number] / [id number]
--- NOTE | 2019-11-23 15:40 | NUR ---
Patient is in the dining room for assessment and medications. He is very confused, disorganized. Completely unable to redirect. He is climbing furniture in the day room, multiple staff members had to intervene to get him down. He is door checking and trying to pull the banisters. Medicated with Zydis at 1030. Also medicated with MOM and Prune juice at that time. Pending effect. After lunch, patient was brought to his room and covered with weighted blanket. He slept for a short time, then began trying to get out of bed. Got patient up, he is wandering the halls and going into other patients rooms. Will continue to monitor.
[2019-11-23] MEDS ORDERED: MAGNESIUM CITRATE 296 ML SOLUTION. PO PRN (16:15)
[2019-11-23] MEDS: traZODone 50 MG TABLET. PO SCH (19:57)
[2019-11-23] MEDS: QUEtiapine 100 MG TABLET. PO SCH (19:57)
[2019-11-23] MEDS: MELATONIN 3 MG TABLET PO SCH (19:58)
--- NOTE | 2019-11-23 21:32 | PDOC ---
Exam Note: Manoj Note: Please also refer to the separate dictated note~for this date of service dictated separately.~Patient seen individually. Discussed the patient with Nursing staff reviewed the chart.~Reviewed interim history and current functioning. Reviewed vital signs,~Labs/ Radiology~and current medications noted below. Continue current treatment with the changes noted in the dictated addendum note Assessment: Vital Signs/I&O: Vital Signs Date Time Temp Pulse Resp B/P (MAP) Pulse Ox O2 Delivery O2 Flow Rate FiO2 11/23/19 05:37 97.6 77 18 100/68 (79) 99 11/20/19 16:18 Room Air I & O 11/22/19 11/22/19 11/23/19 15:00 23:00 07:00 Intake Total 840 ml 355 ml Balance 840 ml 355 ml Current Medications: Meds: Current Medications Medications (Trade) Dose Ordered Sig/Ofe Route PRN Reason Start Time Stop Time Status Last Admin Dose Admin Risperidone (RisperDAL) 1 mg BID PO 11/23/19 09:00 11/23/19 19:57 Magnesium Citrate (Citroma) 296 ml PRN Q72HRS PRN PO CONSTIPATION 11/23/19 16:15 11/23/19 16:50 I have reviewed the current psychotropics carefully including drug interactions. Risk benefit ratio favors no change other than as noted in my dictated progress note. Diagnosis: Problems: (1) Anxiety disorder (2) Impulse control disorder (3) Vascular dementia with depressed mood (4) Vascular dementia with delusions (5) Alzheimer's dementia (6) Vascular dementia with behavior disturbance (7) Major neurocognitive disorder KODI SLATER MD Nov 23, 2019 21:32
--- NOTE | 2019-11-23 23:22 | NUR ---
Nursing Note The patient was located in his room wandering when approached for medication and assessment. The patient took his medication crushed and was very disorganized and unable to answer assessment questions. The patient is currently sleeping in his room.
[2019-11-24 05:36] VITALS: BP 121/67
[2019-11-24] MEDS: busPIRone 15 MG TABLET. PO SCH ×2 (09:03→17:26)
[2019-11-24] MEDS: DULoxetine HCL 20 MG CAPSULE.DR PO SCH (09:07)
[2019-11-24] MEDS: LORazepam 1 MG TABLET PO SCH ×2 (09:07→17:26)
[2019-11-24] MEDS: BACLOFEN 10 MG TABLET PO SCH ×3 (09:08→21:38)
[2019-11-24] MEDS: risperiDONE 0.5 MG TABLET. PO SCH ×2 (09:08→21:38)
[2019-11-24] MEDS: DIVALPROEX 125 MG CAP.SPRINK PO SCH ×2 (09:08→17:26)
[2019-11-24] MEDS: LORazepam 0.5 MG TABLET PO SCH (13:27)
--- NOTE | 2019-11-24 14:00 | NUR ---
Patient was wondering the dining room during morning rounding, took medications crushed in pudding, allowed for morning assessment. Patient has been calm, withdrawn to himself. Is currently sleeping in his room. No agitation noted, will continue to monitor.
[2019-11-24 16:12] VITALS: BP 148/91
--- NOTE | 2019-11-24 21:29 | PDOC ---
Exam Note: Manoj Note: Please also refer to the separate dictated note~for this date of service dictated separately.~Patient seen individually. Discussed the patient with Nursing staff reviewed the chart.~Reviewed interim history and current functioning. Reviewed vital signs,~Labs/ Radiology~and current medications noted below. Continue current treatment with the changes noted in the dictated addendum note Assessment: Vital Signs/I&O: Vital Signs Date Time Temp Pulse Resp B/P (MAP) Pulse Ox O2 Delivery O2 Flow Rate FiO2 11/24/19 16:12 98.5 80 18 148/91 (110) 95 11/20/19 16:18 Room Air I & O 11/23/19 11/23/19 11/24/19 15:00 23:00 07:00 Intake Total 480 ml 110 ml Balance 480 ml 110 ml Current Medications: I have reviewed the current psychotropics carefully including drug interactions. Risk benefit ratio favors no change other than as noted in my dictated progress note. Diagnosis: Problems: (1) Medical clearance for psychiatric admission (2) Anxiety disorder (3) Impulse control disorder (4) Vascular dementia with depressed mood (5) Vascular dementia with delusions (6) Alzheimer's dementia (7) Vascular dementia with behavior disturbance (8) Major neurocognitive disorder KODI SLATER MD Nov 24, 2019 21:29
[2019-11-24] MEDS: DOCUSATE SODIUM 100 MG CAPSULE PO SCH (21:38)
[2019-11-24] MEDS: traZODone 50 MG TABLET. PO SCH (21:38)
[2019-11-24] MEDS: MELATONIN 3 MG TABLET PO SCH (21:38)
[2019-11-24] MEDS: QUEtiapine 100 MG TABLET. PO SCH (21:38)
[2019-11-24] MEDS: SENNOSIDES 8.6 MG TABLET PO SCH (21:38)
--- NOTE | 2019-11-25 02:43 | NUR ---
Nursing Note The patient was located in his room laying in bed when approached for medication and assessment. The patient took his medication crushed and was very disorganized and unable to answer assessment questions. The patient is currently sleeping in his room.
[2019-11-25 06:00] VITALS: BP 111/69
[2019-11-25] MEDS: SENNOSIDES 8.6 MG TABLET PO SCH ×2 (10:03→21:24)
[2019-11-25] MEDS: DULoxetine HCL 20 MG CAPSULE.DR PO SCH (10:03)
[2019-11-25] MEDS: risperiDONE 0.5 MG TABLET. PO SCH ×2 (10:04→21:25)
[2019-11-25] MEDS: busPIRone 15 MG TABLET. PO SCH ×2 (10:04→18:00)
[2019-11-25] MEDS: BACLOFEN 10 MG TABLET PO SCH ×3 (10:04→21:25)
[2019-11-25] MEDS: LORazepam 1 MG TABLET PO SCH (10:04)
[2019-11-25] MEDS: DOCUSATE SODIUM 100 MG CAPSULE PO SCH ×2 (10:04→21:24)
[2019-11-25] MEDS: DIVALPROEX 125 MG CAP.SPRINK PO SCH ×2 (10:05→18:00)
[2019-11-25] MEDS: POLYETHYLENE GLYCOL 3350 17 GM PACKET. PO SCH (10:05)
[2019-11-25] MEDS: LORazepam 0.5 MG TABLET PO SCH ×2 (13:01→18:00)
[2019-11-25 15:54] VITALS: BP 103/67
--- NOTE | 2019-11-25 16:37 | NUR ---
Patient has been disorganized, confused, hallucinating, wandering, and restless throughout this shift. He was in a wheelchair at the beginning of the shift due to weakness and instability. After breakfast, he was wandering in the hallway, occasionally door checking. Patient was obsessing on the dining room's north entrance after he ate lunch, he was first grabbing the siderails and not letting go then eventually he was holding the door handle and shaking it for several minutes. Eventually he was redirected and escorted to the day room. He has been wandering since. Will continue to monitor.
--- NOTE | 2019-11-25 18:51 | PN ---
DATE: 11/24/2019 PSYCHIATRIC PROGRESS NOTE This late entry 11/24/2019 covers elements not covered in my initial note. SUBJECTIVE: I met with the patient evening of 11/24/2019. The patient slept 8-1/4 hours previous night. He takes his medications crushed and has had no bowel movement since the 11, defer to Dr. Lundberg. He remains in onesie and therefore it is quite apparent that in fact he has had no bowel movement since then. Unsteady gait. Resistive, agitated at times. REVIEW OF SYSTEMS: No CV, , pulmonary, eye, ENT system symptoms on review. Reliability poor. MENTAL STATUS EXAM: Oriented to himself. Insight, judgment, recent and remote memory, attention, concentration, fund of knowledge poor, consistent with his diagnosis mentioned in my initial note. PLAN: No change from initial note. MAN Austin SLATER MD DR: DEB/long JOB#: [id number] / [id number]
[2019-11-25] MEDS: QUEtiapine 100 MG TABLET. PO SCH (21:24)
[2019-11-25] MEDS: traZODone 50 MG TABLET. PO SCH (21:25)
[2019-11-25] MEDS: MELATONIN 3 MG TABLET PO SCH (21:25)
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
--- NOTE | 2019-11-25 21:51 | PDOC ---
Exam Note: Manoj Note: Please also refer to the separate dictated note~for this date of service dictated separately.~Patient seen individually. Discussed the patient with Nursing staff reviewed the chart.~Reviewed interim history and current functioning. Reviewed vital signs,~Labs/ Radiology~and current medications noted below. Continue current treatment with the changes noted in the dictated addendum note Assessment: Vital Signs/I&O: Vital Signs Date Time Temp Pulse Resp B/P (MAP) Pulse Ox O2 Delivery O2 Flow Rate FiO2 11/25/19 15:54 98.5 92 16 103/67 (79) 79 11/25/19 06:00 Room Air I & O 11/24/19 11/24/19 11/25/19 15:00 23:00 07:00 Intake Total 480 ml 560 ml Balance 480 ml 560 ml Current Medications: Meds: Current Medications Medications (Trade) Dose Ordered Sig/Ofe Route PRN Reason Start Time Stop Time Status Last Admin Dose Admin Lorazepam (Ativan) 0.5 mg DAILYBFRSUP PO 11/25/19 17:00 12/01/19 00:00 11/25/19 18:00 Polyethylene Glycol (miraLAX) 17 gm DAILY PO 11/25/19 09:00 11/25/19 10:05 I have reviewed the current psychotropics carefully including drug interactions. Risk benefit ratio favors no change other than as noted in my dictated progress note. Diagnosis: Problems: (1) Anxiety disorder (2) Impulse control disorder (3) Vascular dementia with depressed mood (4) Vascular dementia with delusions (5) Alzheimer's dementia (6) Vascular dementia with behavior disturbance (7) Major neurocognitive disorder KODI SLATER MD Nov 25, 2019 21:51
--- NOTE | 2019-11-26 00:15 | NUR ---
Nsg Note: Patient was in bedroom at time of medication administration and assessments. Patient was calm, cooperative, compliant and pretty lethargic. Vitals assessed. Patient was able to take medications crushed in pudding but with much queing and as mentioned, patient was very in/out of it. Patient went back to sleep after this interaction. No other notable behaviors at this time.
[2019-11-26 05:24] VITALS: BP 110/70
[2019-11-26] MEDS: POLYETHYLENE GLYCOL 3350 17 GM PACKET. PO SCH (08:08)
[2019-11-26] MEDS: DOCUSATE SODIUM 100 MG CAPSULE PO SCH ×2 (08:08→19:27)
[2019-11-26] MEDS: BACLOFEN 10 MG TABLET PO SCH ×4 (08:08→19:48)
[2019-11-26] MEDS: busPIRone 15 MG TABLET. PO SCH ×2 (08:08→17:27)
[2019-11-26] MEDS: DULoxetine HCL 20 MG CAPSULE.DR PO SCH (08:08)
[2019-11-26] MEDS: DIVALPROEX 125 MG CAP.SPRINK PO SCH ×2 (08:09→17:27)
[2019-11-26] MEDS: CHOLECALCIFEROL (VITAMIN D3) 50,000 UNIT CAPSULE PO SCH (08:09)
[2019-11-26] MEDS: risperiDONE 0.5 MG TABLET. PO SCH ×3 (08:09→19:49)
[2019-11-26] MEDS: SENNOSIDES 8.6 MG TABLET PO SCH ×2 (08:09→19:27)
[2019-11-26] MEDS: LORazepam 1 MG TABLET PO SCH (08:11)
[2019-11-26] MEDS: LORazepam 0.5 MG TABLET PO SCH ×2 (12:34→17:27)
--- NOTE | 2019-11-26 12:38 | NUR ---
Patient has been disorganized, confused, hallucinating, wandering, and restless throughout this shift. He was wandering in and out of [address], climbing on the empty beds and in the window space of 229. He was wandering afterwards and then sat in the day room. He was cooperative with being changed. Will continue to monitor.
[2019-11-26 15:49] VITALS: BP 124/81
[2019-11-26] MEDS: traZODone 50 MG TABLET. PO SCH ×2 (19:27→19:48)
[2019-11-26] MEDS: MELATONIN 3 MG TABLET PO SCH ×2 (19:27→19:49)
[2019-11-26] MEDS: QUEtiapine 100 MG TABLET. PO SCH ×2 (19:27→19:49)
--- NOTE | 2019-11-26 21:12 | PDOC ---
Exam Note: Manoj Note: Please also refer to the separate dictated note~for this date of service dictated separately.~Patient seen individually. Discussed the patient with Nursing staff reviewed the chart.~Reviewed interim history and current functioning. Reviewed vital signs,~Labs/ Radiology~and current medications noted below. Continue current treatment with the changes noted in the dictated addendum note Assessment: Vital Signs/I&O: Vital Signs Date Time Temp Pulse Resp B/P (MAP) Pulse Ox O2 Delivery O2 Flow Rate FiO2 11/26/19 15:49 98.8 75 18 124/81 (95) 97 11/26/19 05:24 Room Air I & O 11/25/19 11/25/19 11/26/19 14:59 22:59 06:59 Intake Total 1080 ml Balance 1080 ml Current Medications: I have reviewed the current psychotropics carefully including drug interactions. Risk benefit ratio favors no change other than as noted in my dictated progress note. Diagnosis: Problems: (1) Medical clearance for psychiatric admission (2) Anxiety disorder (3) Impulse control disorder (4) Vascular dementia with depressed mood (5) Vascular dementia with delusions (6) Alzheimer's dementia (7) Vascular dementia with behavior disturbance (8) Major neurocognitive disorder KODI SLATER MD Nov 26, 2019 21:12
--- NOTE | 2019-11-27 00:57 | NUR ---
Nursing Note The patient was located in the day room for his medication and assessment. The patient took his medication crushed in pudding. The patient was restless and resistive with cares and redirection. The patient was compliant with HS cares. The patient is currently sleeping in his room.
--- NOTE | 2019-11-27 06:47 | NUR ---
Nursing Note The patient was extremely agitated and resistive this am and was given a PRN Zyprexa@[id number]. The patient was pulling on doors, people and chairs. The patient ranged from joyful to crying to angry in a matter of moments. The patient [facility] [facility].
[2019-11-27] MEDS: BACLOFEN 10 MG TABLET PO SCH ×2 (07:55→13:54)
[2019-11-27] MEDS: DULoxetine HCL 20 MG CAPSULE.DR PO SCH (07:55)
[2019-11-27] MEDS: SENNOSIDES 8.6 MG TABLET PO SCH ×2 (07:55→19:58)
[2019-11-27] MEDS: POLYETHYLENE GLYCOL 3350 17 GM PACKET. PO SCH (07:55)
[2019-11-27] MEDS: DOCUSATE SODIUM 100 MG CAPSULE PO SCH ×2 (07:55→19:58)
[2019-11-27] MEDS: LORazepam 0.5 MG TABLET PO SCH ×3 (07:55→17:05)
--- NOTE | 2019-11-27 10:12 | NUR ---
Patient was restless, disorganized, doorchecking, and wandering at shift change. He was placed in west hallway, scheduled medications provided per eMAR. Patient calmed some and sat in breakfast, after eating he became restless, wandering in the dining room and being intrusive with other patients. He was escorted out of the dining room and wandered in the hallway. He has been increasingly restless, door checking, and obsessing on moving furniture, at one point attempting to move a chair a staff member was sitting in. PRN medication provided per eMAR, will continue to monitor.
--- NOTE | 2019-11-27 12:29 | NUR ---
GURMEET attempted to contact pt. , Jeri, for treatment team. Jeri was unable to be reached but was updated after regarding pt. progress and postponement of pt. discharge to the later part of next week. GURMEET left msg. for Mariposa, Health and Tank Shop Supervisor at [facility], to update her on pt. progress and postponement of pt. discharge.
--- NOTE | 2019-11-27 12:49 | PN ---
DATE: 11/25/2019 PSYCHIATRIC PROGRESS NOTE This late entry 11/25/2019 covers elements not covered in my initial note. SUBJECTIVE: I met with the patient in the evening. The patient slept 7 hours previous night. He remains confused, disorganized, repeatedly trying to get out of his wheelchair, needs assistance, walking is a fall risk. REVIEW OF SYSTEMS: No CV, , pulmonary, eye, ENT system symptoms on review. Reliability poor. MENTAL STATUS EXAM: Oriented to himself. Insight, judgment, recent and remote memory, attention, concentration, fund of knowledge poor, consistent with his diagnosis. IMPRESSION: Major neurocognitive disorder, Alzheimer, vascular with delusion, depression, behavioral disturbance; anxiety disorder, unspecified; impulse control disorder, unspecified. Rest unchanged. PLAN: Ativan is being tapered to be discontinued. This should help with ambulation. Continue rest unchanged for now. We may consider stopping some of the other psychotropics of his ambulation. He remains quite compromised together with the sedation, which is problematic. MAN Austin SLATER MD DR: DEB/long JOB#: [id number] / [id number]
--- NOTE | 2019-11-27 14:28 | NUR ---
WEEKLY ACTIVITY THERAPY NOTE Date of Admission: 11/10/2019 Date of AT Assessment: 11/12/2019 Goal aimed: to increase sensory stimulation Initial goal: Pt. will participate in at least one individual Activity Therapy session before discharge. Weekly progress towards goal: achieved within group Group participation level: moderate in one group Weekly highlights: fidgeting with various materials around group (newspaper, magazine, Activity Therapy sensory tools). Behaviors observed: similar to last week- wandering, generally difficult to engage Plan: repeat goal Beneficial adaptations:
--- NOTE | 2019-11-27 15:34 | PN ---
DATE: 11/26/2019 PSYCHIATRIC PROGRESS NOTE This late entry 11/26/2019 covers elements not covered in my initial note. SUBJECTIVE: I met with the patient in the evening. The patient slept 8-1/4 hours previous night. He remains confused, wandering, difficult to redirect, very unsteady in his gait. I had to hold him in the evening with nursing staff; otherwise, he would fall on the floor. Nursing aides intervened thereafter. REVIEW OF SYSTEMS: No CV, , pulmonary, eye, ENT system symptoms on review. Reliability poor. MENTAL STATUS EXAM: Oriented to himself. Insight, judgment, recent and remote memory, attention, concentration, fund of knowledge poor, consistent with his diagnosis. IMPRESSION: Major neurocognitive disorder, Alzheimer, vascular with delusion, depression, behavioral disturbance; anxiety disorder, unspecified; impulse control disorder, unspecified. Rest unchanged. PLAN: We will go ahead and stop the BuSpar 15 mg b.i.d. and the Risperdal 1 mg b.i.d. given his marked unsteadiness of the gait. No overt aggression, even though he does get restless at times. We will also stop the Depakote 375 mg a.m., 250 at 1700. Taper and stop the Ativan, Seroquel is currently 50 mg at noon and 100 mg at bedtime. We will hold this if he is sedated. We will make further changes in his psychotropics as clinically indicated. Lengthy discussion about this with nursing staff and reviewed drug interactions, risk/benefit ratio. KODI SLATER MD DR: DEB/long JOB#: [id number] / [id number]
[2019-11-27 15:50] VITALS: BP 129/83
[2019-11-27] MEDS: QUEtiapine 100 MG TABLET. PO SCH (19:58)
[2019-11-27] MEDS: MELATONIN 3 MG TABLET PO SCH (19:58)
--- NOTE | 2019-11-27 21:37 | PDOC ---
Exam Note: Manoj Note: Please also refer to the separate dictated note~for this date of service dictated separately.~Patient seen individually. Discussed the patient with Nursing staff reviewed the chart.~Reviewed interim history and current functioning. Reviewed vital signs,~Labs/ Radiology~and current medications noted below. Continue current treatment with the changes noted in the dictated addendum note Assessment: Vital Signs/I&O: Vital Signs Date Time Temp Pulse Resp B/P (MAP) Pulse Ox O2 Delivery O2 Flow Rate FiO2 11/27/19 15:50 98.5 81 18 129/83 (98) 94 11/26/19 05:24 Room Air I & O 11/26/19 11/26/19 11/27/19 15:00 23:00 07:00 Intake Total 600 ml 60 ml Balance 600 ml 60 ml Current Medications: Meds: Current Medications Medications (Trade) Dose Ordered Sig/Ofe Route PRN Reason Start Time Stop Time Status Last Admin Dose Admin Lorazepam (Ativan) 0.5 mg DAILY PO 11/27/19 09:00 12/04/19 08:59 11/27/19 07:55 I have reviewed the current psychotropics carefully including drug interactions. Risk benefit ratio favors no change other than as noted in my dictated progress note. Diagnosis: Problems: (1) Medical clearance for psychiatric admission (2) Anxiety disorder (3) Impulse control disorder (4) Vascular dementia with depressed mood (5) Vascular dementia with delusions (6) Alzheimer's dementia (7) Vascular dementia with behavior disturbance (8) Major neurocognitive disorder KODI SLATER MD Nov 27, 2019 21:37
--- NOTE | 2019-11-27 23:47 | NUR ---
Pt wandering in hallway at shift change. Pt calm this evening but disorganized and restless, door checking and reaching for things that are not there. Pt cooperative with assessment and compliant with medications administered crushed in ice cream.
[2019-11-28] MEDS: traZODone 50 MG TABLET. PO PRN (01:59)
[2019-11-28] MEDS: LORazepam INTENSOL 2 MG/ML BOTTLE PO PRN ×2 (03:09→15:10)
--- NOTE | 2019-11-28 03:32 | NUR ---
Pt restless and disorganized, unable to re-direct. PRN Trazodone administered at 0200 without no effect on his behaviors. Pt continued to be restless, disorganized, and impulsive. PRN Ativan Intensol 1mg administered at 0309.
[2019-11-28] MEDS: DULoxetine HCL 20 MG CAPSULE.DR PO SCH (09:04)
[2019-11-28] MEDS: LORazepam 0.5 MG TABLET PO SCH ×2 (09:04→17:26)
[2019-11-28] MEDS: DOCUSATE SODIUM 100 MG CAPSULE PO SCH ×2 (09:04→19:26)
[2019-11-28] MEDS: SENNOSIDES 8.6 MG TABLET PO SCH ×2 (09:04→19:26)
[2019-11-28] MEDS: POLYETHYLENE GLYCOL 3350 17 GM PACKET. PO SCH (09:04)
--- NOTE | 2019-11-28 09:53 | NUR ---
Pt is wandering in [facility]. Lab attempted to draw pts blood however pt became agitated, resistive and aggressive-attempting to bite staff and pushing staff. Staff dc'd lab draw at that time. PRN norm rios given and will attempt to draw pts labs at a later time.
--- NOTE | 2019-11-28 11:50 | NUR ---
Pt wanders, and can be unknowingly intrusive to others. Difficulty following directions. Pt is compliant with medications and assessment.
--- NOTE | 2019-11-28 15:09 | PN ---
DATE: 11/28/2019 SUBJECTIVE: The patient was seen today, met with the staff, chart reviewed and also covering for Dr. Meredith. Staff reports fluctuating symptoms, tend to pace, wander and lately he has been getting increasingly confused, disorganized, throwing stuff, trying to climb on furniture, also urinating, difficult to manage his behaviors. His behavior fluctuates from day-to-day. OBSERVATION: VITAL SIGNS: Temperature 97.2, pulse 97, respirations 20, O2 sat 100%. GENERAL: Slept only about 5 hours last night. The patient's appetite decreased. MEDICATIONS: The patient's current medications include lorazepam 0.5 mg daily and 0.5 mg in the evening, melatonin 4.5 mg at night, Seroquel 100 mg at night, Cymbalta 40 mg daily, also he is on olanzapine and lorazepam p.r.n. LABORATORY DATA: The patient's lab reviewed. The patient's Depakote level was 63. ASSESSMENT: 1. Major neurocognitive disorder, most likely Alzheimer's with delusion, depression, behavioral disturbances. 2. Anxiety disorder, unspecified. 3. Impulse control disorder, unspecified. MONICA WATSON MD DR: REAGAN/long JOB#: [id number] / [id number]
--- NOTE | 2019-11-28 15:48 | NUR ---
Pt was in the dayroom, intrusive to others, grabbing at others' things, grabbing at staff and unable to be redirected. Pt taken to [facility] for deescalation. During this time he grabbed nurses radio and by the arm. PRN ativan given.
[2019-11-28 18:50] LABS: BASO # 0.1 x10^3/uL (0.0-0.2); BASO % 1 % (0-3); EOS # 0.2 x10^3/uL (0.0-0.7); EOS % 3 % (0-3); HEMATOCRIT 39.7 % (39.0-53.0); LYMPH # 1.5 x10^3/uL (1.0-4.8); LYMPH % 28 % (24-48); MEAN CORPUSCULAR HEMOGLOBIN 31 pg (25-35); MEAN CORPUSCULAR HGB CONC 33 g/dL (31-37); MEAN CORPUSCULAR VOLUME 94 fL (79-100); MONO # 0.6 x10^3/uL (0.0-1.1); MONO % 12 % (0-9); NEUT # 2.9 x10^3uL (1.8-7.7); NEUT % 55 % (31-73); PLATELET COUNT 210 x10^3/uL (140-400); RED BLOOD COUNT 4.21 x10^6/uL (4.30-5.70); RED CELL DISTRIBUTION WIDTH 13.9 % (11.5-14.5); WHITE BLOOD COUNT 5.3 x10^3/uL (4.0-11.0)
[2019-11-28 19:01] LABS: ALBUMIN 3.7 g/dL (3.4-5.0); CALCIUM 8.9 mg/dL (8.5-10.1); CREATININE 1.3 mg/dL (0.7-1.3); GFR 54.7; POTASSIUM 3.6 mmol/L (3.5-5.1); TOTAL BILIRUBIN 0.4 mg/dL (0.2-1.0); TOTAL PROTEIN 7.5 g/dL (6.4-8.2)
[2019-11-28] MEDS: MELATONIN 3 MG TABLET PO SCH (19:26)
[2019-11-28] MEDS: QUEtiapine 100 MG TABLET. PO SCH (19:26)
--- NOTE | 2019-11-28 23:55 | NUR ---
Pt withdrawn laying in another patient's bed with eyes closed at shift change. Pt confused and disorganized. Pt cooperative with cares and assessment this evening, compliant with medications administered crushed in pudding.
--- NOTE | 2019-11-29 02:49 | NUR ---
Pt restless and disorganized, attempting to get OOB without assist. Pt was assisted with morning cares and escorted to the [address] where he was checking doors and shaking door handles. PRN Zydis administered in pudding at this time.
[2019-11-29 06:13] VITALS: BP 136/72
[2019-11-29] MEDS: DULoxetine HCL 20 MG CAPSULE.DR PO SCH (07:51)
[2019-11-29] MEDS: LORazepam 0.5 MG TABLET PO SCH ×2 (07:51→16:28)
[2019-11-29] MEDS: DOCUSATE SODIUM 100 MG CAPSULE PO SCH ×2 (07:51→20:49)
[2019-11-29] MEDS: SENNOSIDES 8.6 MG TABLET PO SCH ×2 (07:51→20:49)
[2019-11-29] MEDS: POLYETHYLENE GLYCOL 3350 17 GM PACKET. PO SCH (07:51)
--- NOTE | 2019-11-29 16:00 | NUR ---
Pt up in secure morrell. Pt very intrusive and door checking. Restless, wandering. Fluids encouraged as pt is dehydrated. Pt has been compliant with meds. Resistive at times to redirection. Has not been combative.
[2019-11-29 16:14] VITALS: BP 104/53
--- NOTE | 2019-11-29 16:35 | NUR ---
Pt in secure morrell. [place] loud noise. Pt found sitting on floor holding right head. Small bruise noted. Unable to see pt in camera. VSS. May order CT head if needed per Dr Lundberg. Will notify family. Will continue to monitor.
[2019-11-29] MEDS: MELATONIN 3 MG TABLET PO SCH (20:49)
[2019-11-29] MEDS: traZODone 50 MG TABLET. PO PRN (20:49)
[2019-11-29] MEDS: QUEtiapine 100 MG TABLET. PO SCH (20:49)
--- NOTE | 2019-11-29 21:22 | PN ---
DATE: 11/29/2019 SUBJECTIVE: The patient was seen today, met with the staff, chart reviewed. The patient continues to having problems with behaviors, confused, disorganized, restless. The patient apparently takes his medications. The patient is not redirectable. He is pacing constantly, wandering and not able to take care of his ADLs. OBSERVATION: VITAL SIGNS: Temperature 97.7, blood pressure 134/72, pulse 75, respirations 20, O2 sat 98%. GENERAL: Slept about 6 hours last night. CURRENT MEDICATIONS: The patient is not having any other physical complaints. The patient has unsteady gait, but has not had any falls recently. LABORATORY DATA: The patient's lab reviewed. ASSESSMENT: 1. Major neurocognitive disorder, most likely Alzheimer's with delusions, depression and behavioral disturbances. 2. Anxiety disorder, unspecified. 3. Impulse control disorder, unspecified. PLAN: To continue with the treatment. LENGTH OF STAY: 7-10 days. MONICA WATSON MD DR: REAGAN/long JOB#: [id number] / [id number]
--- NOTE | 2019-11-29 23:26 | NUR ---
Nsg Note: Patient was in W hallway and day room walking back and forth during assessments and medication pass. Patient was slightly agitated, and door checking so PRN Trazodone given and Zyprexa. Patient calmed down after this interaction shortly after. No other notable behaviors at this time.
[2019-11-30 05:57] VITALS: BP 129/80
[2019-11-30] MEDS: SENNOSIDES 8.6 MG TABLET PO SCH ×2 (08:47→21:04)
[2019-11-30] MEDS: POLYETHYLENE GLYCOL 3350 17 GM PACKET. PO SCH (08:47)
[2019-11-30] MEDS: DOCUSATE SODIUM 100 MG CAPSULE PO SCH ×2 (08:47→21:04)
[2019-11-30] MEDS: DULoxetine HCL 20 MG CAPSULE.DR PO SCH (08:47)
[2019-11-30] MEDS: LORazepam 0.5 MG TABLET PO SCH ×2 (08:47→16:33)
--- NOTE | 2019-11-30 10:44 | NUR ---
Difficulty following directions. Pt wanders, and can be unknowingly intrusive to others. Pt is compliant with medications and assessment.
[2019-11-30 15:56] VITALS: BP 129/84
[2019-11-30] MEDS: QUEtiapine 100 MG TABLET. PO SCH (21:04)
[2019-11-30] MEDS: MELATONIN 3 MG TABLET PO SCH (21:04)
--- NOTE | 2019-11-30 21:15 | PDOC ---
Exam Note: Manoj Note: Please also refer to the separate dictated note~for this date of service dictated separately.~Patient seen individually. Discussed the patient with Nursing staff reviewed the chart.~Reviewed interim history and current functioning. Reviewed vital signs,~Labs/ Radiology~and current medications noted below. Continue current treatment with the changes noted in the dictated addendum note Assessment: Vital Signs/I&O: Vital Signs Date Time Temp Pulse Resp B/P (MAP) Pulse Ox O2 Delivery O2 Flow Rate FiO2 11/30/19 15:56 98.5 70 16 129/84 (99) 98 11/28/19 05:35 Room Air I & O 11/29/19 11/29/19 11/30/19 15:00 23:00 07:00 Intake Total 1840 ml 800 ml Balance 1840 ml 800 ml Current Medications: I have reviewed the current psychotropics carefully including drug interactions. Risk benefit ratio favors no change other than as noted in my dictated progress note. Diagnosis: Problems: (1) Anxiety disorder (2) Impulse control disorder (3) Vascular dementia with depressed mood (4) Vascular dementia with delusions (5) Alzheimer's dementia (6) Vascular dementia with behavior disturbance (7) Major neurocognitive disorder KODI SLATER MD Nov 30, 2019 21:15
--- NOTE | 2019-11-30 23:30 | PN ---
DATE: 11/27/2019 PSYCHIATRIC PROGRESS NOTE This late entry 11/27/2019 covers elements not covered in my initial note. SUBJECTIVE: I met with the patient in the evening and staffed at a treatment team meeting with the entire team earlier in the day and the patient's , Jeri, attended the treatment team meeting. We had a lengthy discussion reviewed the patient's history, diagnosis, current psychotropics. He slept 3 hours previous night, was agitated in the mornings, received Zyprexa at 6:00 a.m., resistive to cares, exit seeking, moving furniture. His ambulation is significantly impaired. He has a significant fall risk and we will go ahead and stop the Depakote and Risperdal 1 mg b.i.d. and BuSpar 15 mg b.i.d. REVIEW OF SYSTEMS: No CV, , pulmonary, eye, ENT system symptoms on review. Reliability poor. MENTAL STATUS EXAM: Oriented to himself. Insight, judgment, recent and remote memory, attention, concentration, fund of knowledge poor, consistent with his diagnosis mentioned in my initial note. PLAN: No change from initial note. MAN Austin SLATER MD DR: DEB/long JOB#: [id number] / [id number]
--- NOTE | 2019-12-01 00:30 | NUR ---
Nursing Note The patient was located in the quiet morrell for his medication pass and assessment. The patient was compliant with medication crushed in pudding. The patient was restless and intrusive with other patient at times. The patient is currently sleeping in his room.
[2019-12-01 05:20] VITALS: BP 117/69
--- NOTE | 2019-12-01 08:20 | NUR ---
GURMEET left message for pt. , Jeri, to discuss hospice. Addendum: 12/01/19 at 1044 by JONO LEVI GURMEET spoke to pt. , Jeri, who gave permission for GURMEET to fax pt. information to [facility]. GURMEET also share pt. discharge time and date with Jeri. GURMEET spoke to Grisel, [facility], who will set up pt. evaluation. GURMEET faxed pt. paperwork to Grisel. GURMEET spoke to Mariposa, [facility], to set up discharge for 12/03/2018 at 11:30.
[2019-12-01] MEDS: POLYETHYLENE GLYCOL 3350 17 GM PACKET. PO SCH (09:27)
[2019-12-01] MEDS: SENNOSIDES 8.6 MG TABLET PO SCH ×2 (09:27→21:16)
[2019-12-01] MEDS: LORazepam 0.5 MG TABLET PO SCH (09:27)
[2019-12-01] MEDS: DULoxetine HCL 20 MG CAPSULE.DR PO SCH (09:27)
[2019-12-01] MEDS: DOCUSATE SODIUM 100 MG CAPSULE PO SCH ×2 (09:27→21:17)
--- NOTE | 2019-12-01 15:07 | NUR ---
patient wandering in and out of rooms, calm, interactive with staff although hard to understand. Med compliant crushed in pudding.
--- NOTE | 2019-12-01 16:00 | NUR ---
Assumed care of patient around 1515. Patient is currently in the dayroom. Will continue to monitor.
[2019-12-01 16:16] VITALS: BP 122/75
[2019-12-01] MEDS: QUEtiapine 100 MG TABLET. PO SCH (21:16)
[2019-12-01] MEDS: MELATONIN 3 MG TABLET PO SCH (21:17)
--- NOTE | 2019-12-01 21:33 | PDOC ---
Exam Note: Manoj Note: Please also refer to the separate dictated note~for this date of service dictated separately.~Patient seen individually. Discussed the patient with Nursing staff reviewed the chart.~Reviewed interim history and current functioning. Reviewed vital signs,~Labs/ Radiology~and current medications noted below. Continue current treatment with the changes noted in the dictated addendum note Assessment: Vital Signs/I&O: Vital Signs Date Time Temp Pulse Resp B/P (MAP) Pulse Ox O2 Delivery O2 Flow Rate FiO2 12/01/19 16:16 98.7 81 16 122/75 (91) 95 11/28/19 05:35 Room Air I & O 11/30/19 11/30/19 12/01/19 15:00 23:00 07:00 Intake Total 1020 ml 600 ml Balance 1020 ml 600 ml Current Medications: I have reviewed the current psychotropics carefully including drug interactions. Risk benefit ratio favors no change other than as noted in my dictated progress note. Diagnosis: Problems: (1) Medical clearance for psychiatric admission (2) Anxiety disorder (3) Impulse control disorder (4) Vascular dementia with depressed mood (5) Vascular dementia with delusions (6) Alzheimer's dementia (7) Vascular dementia with behavior disturbance (8) Major neurocognitive disorder KODI SLATER MD Dec 01, 2019 21:33
--- NOTE | 2019-12-02 01:33 | NUR ---
Nursing Note The patient was wandering peacefully, occasionally door checking in the day room for most of this shift while awake. The patient took his medication crushed. The patient is currently sleeping in his room.
[2019-12-02] MEDS ORDERED: DOCU-109 PO (03:10)
[2019-12-02] MEDS ORDERED: MAGN296S4 PO (03:11)
[2019-12-02] MEDS ORDERED: POLY17PO5 PO (03:12)
[2019-12-02] MEDS ORDERED: SENN8.6T11 PO (03:14)
[2019-12-02 05:17] VITALS: BP 118/72
[2019-12-02] MEDS: POLYETHYLENE GLYCOL 3350 17 GM PACKET. PO SCH (09:46)
[2019-12-02] MEDS: LORazepam 0.5 MG TABLET PO SCH (09:47)
[2019-12-02] MEDS: SENNOSIDES 8.6 MG TABLET PO SCH ×2 (09:47→19:59)
[2019-12-02] MEDS: DULoxetine HCL 20 MG CAPSULE.DR PO SCH (09:48)
[2019-12-02] MEDS: DOCUSATE SODIUM 100 MG CAPSULE PO SCH ×2 (09:48→19:59)
--- NOTE | 2019-12-02 10:21 | NUR ---
GURMEET faxed updated pt. notes to Mariposa, Health and Tafe Lecturer at [facility], in preparation of discharge scheduled for 12/03/2018.
--- NOTE | 2019-12-02 10:27 | NUR ---
[facility] Social Work Discharge Planning Form Patient Name LIZETH JULES Admit Date: 11/10/2019 DISCHARGE PLAN Discharge Destination: [facility] Care Assessment: NA Level II Assessment: NA Transportation: [facility] to set up transport for pt. on 12/03/2019 at 11:30. Special Instructions/Notes: Please fax discharge paperwork and medication list to [phone]. DISCHARGE TO FACILITY Facility: [facility] Address: [address] [place] [address] Contact Name: MariposaSPEEDELO [facility] and Customer Account Manager Contact Name: DIONICIO Luong PCP: Dr. Lizeth Lorenzo Psychiatrist: None Addendum: 12/02/19 at 1109 by JONO LEVI Pt. will be evaluated by [facility].
--- NOTE | 2019-12-02 13:30 | NUR ---
Patient is calm and cooperative. He has been more interactive today with staff and is smiling and speaking more clearly. Patient is med compliant with meds crushed in chocolate pudding. His Sodium and BUN are elevated and staff has been encouraging him to drink more water today. Dr. Lundberg is aware of elevated lab levels. Patients clothes were changed with one staff member assisting and patient was cooperative. He has been happy and pleasant with no adverse behaviors this shift.
[2019-12-02] MEDS ORDERED: CHOL500050 PO (15:25)
[2019-12-02 15:44] VITALS: BP 149/79
--- NOTE | 2019-12-02 17:20 | NUR ---
Hospice Nurse Practitioner came by to screen patient for hospices services. This nurse provided her with most recent labs and copy of final discharge medication list. She stated she will be in contact with social work or nursing if she has any questions. Patient is scheduled to discharge tomorrow.
[2019-12-02] MEDS: QUEtiapine 100 MG TABLET. PO SCH (19:58)
[2019-12-02] MEDS: MELATONIN 3 MG TABLET PO SCH (19:59)
--- NOTE | 2019-12-02 20:53 | PDOC ---
Exam Note: Manoj Note: Please also refer to the separate dictated note~for this date of service dictated separately.~Patient seen individually. Discussed the patient with Nursing staff reviewed the chart.~Reviewed interim history and current functioning. Reviewed vital signs,~Labs/ Radiology~and current medications noted below. Continue current treatment with the changes noted in the dictated addendum note Assessment: Vital Signs/I&O: Vital Signs Date Time Temp Pulse Resp B/P (MAP) Pulse Ox O2 Delivery O2 Flow Rate FiO2 12/02/19 15:44 98.1 62 16 149/79 (102) 95 12/02/19 05:17 Room Air I & O 12/01/19 12/01/19 12/02/19 15:00 23:00 07:00 Intake Total 840 ml 480 ml Balance 840 ml 480 ml Current Medications: I have reviewed the current psychotropics carefully including drug interactions. Risk benefit ratio favors no change other than as noted in my dictated progress note. Diagnosis: Problems: (1) Anxiety disorder (2) Impulse control disorder (3) Vascular dementia with depressed mood (4) Vascular dementia with delusions (5) Alzheimer's dementia (6) Vascular dementia with behavior disturbance (7) Major neurocognitive disorder KODI SLATER MD Dec 02, 2019 20:53
[2019-12-02] MEDS: traZODone 50 MG TABLET. PO PRN (21:26)
--- NOTE | 2019-12-02 22:35 | NUR ---
Pt sitting in day room at shift change. Pt calm, pleasant and interactive when approached, intrusive at times. Pt cooperative with assessment and compliant with medications administered crushed in pudding. PRN Trazodone administered for restlessness at 2125.
[2019-12-03 05:43] VITALS: BP 135/72
[2019-12-03] MEDS: POLYETHYLENE GLYCOL 3350 17 GM PACKET. PO SCH (08:53)
[2019-12-03] MEDS: SENNOSIDES 8.6 MG TABLET PO SCH (08:54)
[2019-12-03] MEDS: DOCUSATE SODIUM 100 MG CAPSULE PO SCH (08:54)
[2019-12-03] MEDS: LORazepam 0.5 MG TABLET PO SCH (08:54)
[2019-12-03] MEDS: DULoxetine HCL 20 MG CAPSULE.DR PO SCH (08:54)
[2019-12-03] MEDS: CHOLECALCIFEROL (VITAMIN D3) 50,000 UNIT CAPSULE PO SCH (08:54)
--- NOTE | 2019-12-03 08:54 | NUR ---
GURMEET spoke to Grisel, [facility], to confirm pt. would be discharging today and was told pt. is hospice eligible. [facility] will reach out to pt. to get the necessary paperwork completed.
--- NOTE | 2019-12-03 09:50 | NUR ---
Patient is interactive, pleasant and smiling. He was compliant with medications given crushed in chocolate pudding. Miralax was given in water in lidded cup. Patient has had no adverse behaviors, he spends his time walking in hallway or day room. Patient is scheduled to discharge today.
--- NOTE | 2019-12-03 11:59 | NUR ---
Transition Record was faxed to follow-up provider with the following elements: Reason for admission, procedures, tests, principal diagnosis, pending studies, patient instructions, 24/06 contact information for unit, phone number to obtain pending test results, plan for follow-up care, physician follow-up, advanced directive information, and medication list with dose, duration and instructions. This information was included in the following documents: History and physical, lab results, study results, progress notes, social work planning form, DC instruction form, patient visit summary, and medication reconciliation form. Date & time record faxed: 12/03/2019 [id number] Record faxed to: [facility] [phone] Record discussed with/ report given to: ASTER Monge
--- NOTE | 2019-12-03 21:05 | PDOC ---
Exam Note: Manoj Note: Please also refer to the separate dictated note~for this date of service dictated separately.~Patient seen individually. Discussed the patient with Nursing staff reviewed the chart.~Reviewed interim history and current functioning. Reviewed vital signs,~Labs/ Radiology~and current medications noted below. Continue current treatment with the changes noted in the dictated addendum note Assessment: Vital Signs/I&O: Vital Signs Date Time Temp Pulse Resp B/P (MAP) Pulse Ox O2 Delivery O2 Flow Rate FiO2 12/03/19 05:43 97.8 63 18 135/72 (93) 100 12/02/19 05:17 Room Air I & O 12/02/19 12/02/19 12/03/19 15:00 23:00 07:00 Intake Total 720 ml 240 ml 240 ml Balance 720 ml 240 ml 240 ml Current Medications: I have reviewed the current psychotropics carefully including drug interactions. Risk benefit ratio favors no change other than as noted in my dictated progress note. Diagnosis: Problems: (1) Anxiety disorder (2) Impulse control disorder (3) Vascular dementia with depressed mood (4) Vascular dementia with delusions (5) Alzheimer's dementia (6) Vascular dementia with behavior disturbance (7) Major neurocognitive disorder KODI SLATER MD Dec 03, 2019 21:04
--- NOTE | 2019-12-03 22:09 | DS ---
DATE OF DISCHARGE: 12/03/2019 PSYCHIATRIC PROGRESS NOTE This note covers elements not covered in my initial note on 12/03. REASON FOR ADMISSION: Please refer to the admission history for details. Briefly, the patient is a 69-year-old male referred to us from [facility] by his primary care physician on account of increasing confusion, being resistive, pushing staff, flipped over a table, tearful, anxious. He had failed outpatient psychiatric interventions with progressively worsening dementia. CLINICAL COURSE: Following admission, the patient was seen daily individually by myself from a psychiatric standpoint, medical followup with Dr. Lundberg. The patient remained quite anxious, restless, sedated with impaired ambulation. Adjustments were made in his psychotropics, many of which were discontinued due to his impaired ambulation and risk of fall and he seemed to respond to a combination of Cymbalta 20 mg a day, melatonin 4 mg at bedtime, Ativan oral was being tapered to be stopped, Zyprexa p.r.n., trazodone p.r.n. bedtime, Seroquel 100 mg at bedtime, hold if sedated. REVIEW OF SYSTEMS: Prior to discharge on 12/03, no CV, , pulmonary, eye, ENT system symptoms on review. Reliability poor. MENTAL STATUS EXAM: Oriented to himself. Insight, judgment, recent and remote memory, attention, concentration, fund of knowledge poor, consistent with his diagnosis. FINAL DIAGNOSES: Major neurocognitive disorder, Alzheimer, vascular with delusion, depression, behavioral disturbance; anxiety disorder, unspecified; impulse control disorder, unspecified. Rest unchanged from admission. DISCHARGE MEDICATIONS: Please refer to the [facility]AD. DISCHARGE INSTRUCTIONS: Outpatient psychiatric and medical followup at the [facility]. Time for discharge day management greater than 30 minutes. MAN Austin SLATER MD DR: DEB/long JOB#: [id number] / [id number]
--- NOTE | 2019-12-04 01:08 | PN ---
DATE: 11/30/2019 PSYCHIATRIC PROGRESS NOTE This late entry, 11/30/2019, covers elements not covered in my initial note. SUBJECTIVE: I met with the patient in the evening of 11/30/2019. Per ASTER Munoz, the patient slept 6-1/4 hours previous night. Reviewed information with Dr. Corrales, who covered for me over the past couple of days. The patient remains confused, but smiling more appropriate since we reduced his psychotropics and he is not aggressive. REVIEW OF SYSTEMS: No CV, , pulmonary, eye, ENT system symptoms on review. Reliability poor. MENTAL STATUS EXAM: Oriented to himself. Insight, judgment, recent and remote memory, attention, concentration, fund of knowledge poor, consistent with his diagnosis mentioned in my initial note. PLAN: No change from initial note. MAN Austin SLATER MD DR: DEB/long JOB#: [id number] / [id number]
--- NOTE | 2019-12-04 01:21 | PN ---
DATE: 12/01/2019 PSYCHIATRIC PROGRESS NOTE This late entry, 12/01/2019, covers elements not covered in my initial note. SUBJECTIVE: I met with the patient in the evening. Overall, the patient remains confused, ambulating a little better since his psychotropics were reduced. REVIEW OF SYSTEMS: No CV, , pulmonary, eye, ENT system symptoms on review. Reliability poor. MENTAL STATUS EXAM: Oriented to himself. Insight, judgment, recent and remote memory, attention, concentration, fund of knowledge poor, consistent with his diagnosis mentioned in my initial note. PLAN: No change from initial note. MAN JesúsFlorence SLATER MD DR: DEB/long JOB#: [id number] / [id number]
--- NOTE | 2019-12-04 01:24 | PN ---
DATE: 12/02/2019 PSYCHIATRIC PROGRESS NOTE This late entry, 12/02/2019, covers elements not covered in my initial note. SUBJECTIVE: I met with the patient in the evening. The patient slept 5-1/2 hours previous night per ASTER Hsu. The patient takes medications crushed in pudding and is being considered for hospice care. REVIEW OF SYSTEMS: Ambulation impaired. No CV, , pulmonary, eye system symptoms on review. MENTAL STATUS EXAM: Oriented to himself. Insight, judgment, recent and remote memory, attention, concentration, fund of knowledge poor, consistent with his diagnosis mentioned in my initial note. PLAN: No change from initial note. MAN Austin SLATER MD DR: DEB/long JOB#: [id number] / [id number]
== END 2019-12-03 11:30 | DRG 57 ==
LOC: ER 19:42 → GEROPSY 21:22
PROVIDERS: ADMIT Psychiatry & Neurology Psychiatry; ATTEND Psychiatry & Neurology Psychiatry
DX: G30.9 Alzheimer's disease, unspecified (principal); F01.51 Vascular dementia, unspecified severity, with behavioral disturbance; F02.81 Dementia in other diseases classified elsewhere, unspecified severity, with behavioral disturbance; E87.6 Hypokalemia; F41.9 Anxiety disorder, unspecified; F63.9 Impulse disorder, unspecified; Z79.899 Other long term (current) drug therapy; F32.9 Major depressive disorder, single episode, unspecified; E55.9 Vitamin D deficiency, unspecified
CPT/HCPCS: 36415; 80053; 80164; 81001; 82306; 82607; 83540; 83550; 83735; 84436; 84443; 84480; 85025; 86592; 90471; 90686; 93005; P9612; 99285-25